=== PATIENT | male | born 1965 | race Caucasian/White ===

== ENCOUNTER 2016-04-09 09:46 | Emergency (ER) | payer OTHER ==
[~2016-04-09] VITALS: Ht 172.7 cm; Wt 71.8 kg
[2016-04-09 09:50] VITALS: Ht 172.7 cm; Wt 71.8 kg
[2016-04-09] MEDS ORDERED: KETOROLAC TROMETHAMINE 60 MG/2 ML VIAL IM STA (10:14)
--- NOTE | 2016-04-09 10:46 | DIAGNOSTIC IMAGING REPORT ---
LEFT FEMUR 2 VIEWS ROUTINE CLINICAL HISTORY: Left femur pain COMPARISON: None. DISCUSSION: No fractures are visualized. No destructive lesions are evident on conventional radiographic imaging. IMPRESSION: No bony abnormalities identified. Electronically signed by: Jakob Cash M.D. 04/09/2016 10:44 AM Dictated Date/Time: 04/09/2016 10:43 AM
[2016-04-09] MEDS ORDERED: HYDR-5688 PO (11:41)
[2016-04-09] MEDS ORDERED: DICL-201 PO (11:41)
[2016-04-09 12:05] VITALS: BP 132/92; PULSE 69; TEMP 36.5; O2SAT 99
--- NOTE | 2016-04-09 19:17 | EMERGENCY ROOM VISIT NOTE ---
ED Visit Note First contact with patient: 09:58 CHIEF COMPLAINT: Left thigh injury HISTORY OF PRESENT ILLNESS: This 50-year-old white male patient injured lateral left thigh nontender in the week. He has had 4 days of continued lateral left thigh pain. There was no specific injury that is aware of. He did put on a new roof last week and using an air nailer. He is unsure if this is related. He points to the midshaft femur as his area of discomfort. No pain anteriorly, posteriorly, or medially. No numbness or tingling. No prior history of similar episode. His accompanies him today. He has tried Tylenol, ibuprofen, and Darvocet without relief. REVIEW OF SYSTEM: HEENT: No dizziness, visual problems, hearing loss, or tinnitus. There is no difficulty swallowing and no oral lesions are present. PULMONARY: No cough, shortness of breath, sputum production or hemoptysis. CARDIOVASCULAR: No chest pain, palpitations, shortness of breath or peripheral edema. GASTROINTESTINAL: No diarrhea, constipation, nausea, vomiting, or abdominal pain. GENITOURINARY: No dysuria, frequency, urgency or nocturia. NEUROLOGIC: No weakness, muscle tenderness, epilepsy or history of neurological problems. MUSCULOSKELETAL: No history of joint tenderness/swelling. No history of arthritis or arthralgias. SKIN: No rashes or lesions. ENDOCRINE: No history of diabetes, thyroid disorders, or abnormal hair growth. PMH: The patient is healthy; there is no significant medical or surgical history. Family history: Noncontributory. Current medications: Reviewed and filed in patient's chart Allergies: NKDA SOCIAL HISTORY: Patient lives at home. Employed. No tobacco use. PHYSICAL EXAM: Vital Signs: Reviewed Nurse's notes. Afebrile. MENTAL STATUS: Alert, oriented, and cooperative. Skin:Warm and dry with good turgor. No rashes or lesions. No ecchymosis or erythema. The patient is not diaphoretic. No abrasions. Musculoskeletal: The left thigh has no obvious asymmetry or deformity. No visible edema. He has focal discomfort with palpation over the IT band laterally at the midshaft. No visible edema. Some motion of his hip and knee. There is no joint effusion. He has lateral pain with resisted hip flexion as well as abduction area no pain with adduction or hamstring contraction. No pain with palpation over the lateral knee, greater trochanter, or pelvis. There is no ligamentous instability. The patient walks with an antalgic gait. Neurologic: Gross sensation is intact across left leg by soft touch. EMERGENCY DEPARTMENT COURSE: X-ray does not show any fractures of the femur. This was read by radiology. DIAGNOSIS: Left lateral thigh pain DISCHARGE INSTRUCTIONS: Patient was educated regarding today's findings. Conservative care measures were discussed. His IT band may have been irritated by the repetitive nature of walking on the roof in a [id number] fashion while bent over. He would benefit from physical therapy. He will discuss this with his PCP. He may do soft tissue massage for comfort. Crutches are given and crutch instruction was reviewed. Weight-bear as tolerated. Discontinue crutch use when he can walk without a limp. Start diclofenac 75 mg every 12 hours if needed for pain. Add Tylenol every 6 hours for mild pain. Add [place] 5 mg every 6 hours for more severe pain. Driving precautions were given. Ice and elevation to the knee frequently for the next 72 hours. Gentle motion daily. Return to the ED for any acute changes. He was reassured that I do not suspect fracture, tendon rupture, mass, or tumor. Problem List Medical Problems: (1) no chronic medical problems Status: Chronic Current/Historical Medications Scheduled Diclofenac (Voltaren), 75 MG PO BID Scheduled PRN Hydrocodone/Acetaminophen 5MG/325MG (Fore[place] 5MG/325MG), 1-2 TABLET PO Q6H PRN for Pain Allergies Coded Allergies: No Known Allergies (Unverified , 04/09/16) Vital Signs Date Time Temp Pulse Resp B/P Pulse Ox O2 Delivery O2 Flow Rate FiO2 04/09/16 12:05 36.5 69 18 132/92 99 Room Air 04/09/16 09:50 36.2 92 17 156/88 99 Room Air Medications Administered Medications (Trade) Dose Ordered Sig/Fran Route Start Time Stop Time Status Last Admin Dose Admin Ketorolac Tromethamine (Toradol Inj) 60 mg NOW STAT IM 04/09/16 10:14 04/09/16 10:15 DC 04/09/16 10:26 60 MG Departure Information Impression Primary Impression: Pain in lateral left lower extremity Dispostion Home / Self-Care Condition GOOD Prescriptions Hydrocodone/Acetaminophen 5MG/325MG ([place] 5MG/325MG) Tab 1-2 TABLET PO Q6H Y for Pain, #16 TAB For Initial Treatment Prov: Angel Rojas,P.A. 04/09/16 Diclofenac (Voltaren) 75 Mg Tabcr 75 MG PO BID, #20 TAB WITH FOOD Prov: Angel Rojas,P.A. 04/09/16 Forms HOME CARE DOCUMENTATION FORM, SPECIAL NARCOTICS INSTRUCTIONS, TYLENOL USE, IMPORTANT VISIT INFORMATION Patient Instructions My [facility] Additional Instructions Ice intermittently to the lateral thigh as needed for discomfort Gentle stretching daily Use crutches until you can walk without a [id number] as tolerated Diclofenac 1 pill 2 times a day with food Add [place]hill 5 mg every 6 hours as needed for more severe pain-no driving Follow-up with your PCP for a physical therapy referral this week return to the ED for any acute changes or worsening of symptoms
== END 2016-04-09 11:50 | disposition home or self-care (01) ==
LOC: C.EDB 09:47
DX: M79.652 Pain in left thigh (principal)

== ENCOUNTER → 2016-06-30 | Outpatient (CLI) | payer OTHER ==
[~2016-06-30] MED LIST: DICL-201 PO; HYDR-5688 PO
== END | disposition home or self-care (01) ==
LOC: C.LAB 20:21
DX: Z02.83 Encounter for blood-alcohol and blood-drug test (principal)

== ENCOUNTER 2018-05-12 13:15 | Inpatient (IN) ==
[2018-05-12] MEDS ORDERED: ONDANSETRON INJ 2 MG/ML 2 ML VIAL IV STA (14:33)
[2018-05-12] MEDS ORDERED: AMPICILLIN/SULBACTAM SOD 3,000 MG in 0.9 % SODIUM CHLORIDE 100 ML IV STA (14:33)
[2018-05-12] MEDS ORDERED: MoRPHine SULFATE 4 MG/ML 1 ML CARP\\VIAL IV STA ×2 (14:33→16:48)
[2018-05-12] MEDS ORDERED: SODIUM CHLORIDE 0.9% 1000ML 1,000 ML IV SCH (14:45)
[2018-05-12 15:10] LABS: Basophils # (auto) 0.05 K/uL (0-0.2); Basophils % (auto) 0.3 %; Eosinophils # (auto) 0.16 K/uL (0-0.5); Eosinophils % (auto) 0.9 %; Hematocrit (blood only) 45.6 % (42-52); Hemoglobin 16.2 g/dL (14.0-18.0); Immature Granulocytes # (auto) 0.05 K/uL (0.00-0.02); Immature Granulocytes % (auto) 0.3 %; Lymphocytes # (auto) 2.89 K/uL (1.2-3.4); Lymphocytes % (auto) 16.6 %; Mean Corpuscular Hgb Conc 35.5 g/dL (32-36); Mean Platelet Volume 9.2 fL (7.4-10.4); Monocytes # (auto) 1.68 K/uL (0.11-0.59); Monocytes % (auto) 9.7 %; Neutrophils # (auto) 12.55 K/uL (1.4-6.5); Neutrophils % (auto) 72.2 %; Platelet Count 286 K/uL (130-400); RDW Coefficient of Variation 14.6 % (11.5-14.5); RDW Standard Deviation 47.1 fL (36.4-46.3); Red Blood Count 5.18 M/uL (4.7-6.1); White Blood Count 17.38 K/uL (4.8-10.8)
[2018-05-12 15:23] LABS: Albumin Level 3.9 gm/dl (3.4-5.0); BUN Creatinine Ratio 14.8 (10-20); C Reactive Protein 0.4 mg/dl (0-0.29); Creatinine Clr Calc Pharmacy 95.3 ml/min; Est GFR (African American) 116.7; Est GFR (Non-African American) 100.7; Potassium 3.7 mmol/L (3.5-5.1); Uric Acid 4.8 mg/dl (2.6-7.2)
[2018-05-12 15:26] LABS: Bilirubin,Total 0.7 mg/dl (0.2-1); Globulin 3.8 gm/dl (2.5-4.0); Total Protein 7.7 gm/dl (6.4-8.2)
--- NOTE | 2018-05-12 15:26 | XRay Report ---
XR wrist LT w scaphoid HISTORY: 52 years-old Male left wrist pain, trauma acute posttraumatic left wrist pain COMPARISON: None available TECHNIQUE: 5 views of the left wrist FINDINGS: Mild radiocarpal, triscaphe and first carpometacarpal osteoarthritis. Minimal subcortical cystic lopez ges about the carpus. No acute fracture or dislocation. Marginal spurring of the radial styloid. No o paque foreign body. Mild dorsal wrist soft tissue swelling. IMPRESSION: 1. Mild dorsal soft tissue swelling without acute fracture or dislocation. 2. Mild degenerative changes as above. The above report was generated using voice recognition software. It may contain grammatical, syntax o r spelling errors. Electronically signed by: Robbi Candelario M.D. 05/12/2018 3:25 PM
--- NOTE | 2018-05-12 17:43 | History & Physical Report ---
Date of Service May 12, 2018 Assessment & Plan (1) Lymphangitis: 52 year old male with pmhx of undiagnosed swelling and warmth of ankles 20 + years ago presented s/p mechanical injury to his left arm with lymphangitis, inflammatory markers, and elevated white count concern for skin/soft tissue infection vs compartment syndrome, vs gout vs tendonitis . -Admit to ortho floor -Empiric Unasyn 3 g q6h pending blood cx results -Ibuprofen 600 mg q6h -RICE -NV checks q4h -Trend CBC -Repeat BMP, ESR, CRP -Morphine 2mg q2 prn for pain -Consult Ortho appreciate recs -NPO after midnight History of Present Illness Primary Care Provider: NIKCY Anne 52 year old male with a pmhx of bilateral red warm ankles 20 + years ago, presents s/p jamming his left arm in a door, Left arm is swollen with a red streak from flexor aspect of the arm from the wrist to the elbow, concerning for skin and soft tissue infection. Pt was in his normal state of health until yesterday when he hurt his arm. Around 6 pm on 05/11 he was carrying a gallon of milk into the house when the door hit his elbow jamming his hand into the door frame. He does not recall significant pain from the injury. Later that evening around 9 pm he began to experience swelling and 10/10 pain in his wrist /arm. The pain was so severe he was unable to sleep last night. He describes the pain as a constant dull ache that ranges in intensity from 5/10 to 10/10, with no radiation. He describes ttp over the styloid process of the radius. Of note he did have a similar episode 20+ years ago where both ankles suddenly became warm, erythematous, and he was unable to bear weight. At that time a bx was preformed and was negative for gout. He was treated as if it was a gout flare and syx resolved. otherwise no significant pmhx, past surghx, or allergies. FH significant for dm on mom's side and heart disease on dads. He lives with his girlfriend of 12 years [place] with no animals. Has a couple of beers every night, smokes 1 ppd, no other recreational drug use. Today he presented to [facility] for evaluation. [facility] referred him to the [facility] ER. In the ED wrist xray was obtained demonstrating 1. Mild dorsal soft tissue swelling without acute fracture or dislocation. 2. Mild degenerative changes as above. CBC showed elevated wbc to 17.38 with elevated neutrophils and monocytes. ESR was 20, CRP 0.40, CMP was unremarkable. He was given a dose of unasyn and morphine for pain. Given his physical exam and laboratory findings the patient was admitted for further workup. Pt endorse hx of eczema Pt specifically denies any hx of fevers, chills, N/V/D, Abd pain, Ramesh, CP, Palpitations, SOB, Cough, Congestion, si/sx of acute infections process, exposure to thorny plants, or other constitutional syx except as mentioned above Allergies Allergy/AdvReac Type Severity Reaction Status Date / Time No Known Allergies Allergy Unverified 05/12/18 14:01 Home Medications Home Medications Medication Instructions Recorded Confirmed Type No Known Home Medications 05/12/18 05/12/18 History Past Med/Surg History Medical History No known health problems Family History Other No pertinent family history Social History Feels Safe at Home: Yes Smoking Status: Never smoker Review of Systems All systems reviewed & are unremarkable except as noted in HPI & below Physical Exam Vital Signs (Past 24 Hours): Last Vital Signs Temp 36.6 C 05/12/18 13:17 Pulse 85 05/12/18 15:59 Resp 17 05/12/18 15:59 BP 168/99 H 05/12/18 15:59 Pulse Ox 96 05/12/18 15:59 Constitutional: WD/WN, vitals as above + overweight Eyes: PERRL, conjunctivae normal, anicteric sclerae normal visual powell by confrontation Neck: trachea midline, no thyromegaly normal visual inspection Respiratory: normal respiratory effort, lungs clear to auscultation Cardiovascular: RRR, no murmur, no edema Gastrointestinal (Abdomen): normal bowel sounds, soft, nontender, no hepatosplenomegaly Musculoskeletal: Unable to move left arm 2/2 swelling and pain, appreciated radial pulse. Pt unable to flex or extend the wrist without significant pain. Pain with passive motion and palpation as well. Good capillary refill. Skin: Left wrist swelling. Reddness extending from wrist to elbow on flexor aspect of right arm without warmth, marked length on skin. Results & Data Laboratory Results 05/12/18 05/12/18 05/12/18 Range/Units 14:50 14:50 14:50 WBC (4.8-10.8) K/uL RBC (4.7-6.1) M/uL Hgb (14.0-18.0) g/dL Hct (42-52) % MCV (80-100) fL MCH (25-34) pg MCHC (32-36) g/dL RDW Std Deviation (36.4-46.3) fL RDW Coeff of Juliane (11.5-14.5) % Plt Count (130-400) K/uL MPV (7.4-10.4) fL Immature Gran % (Auto) % Neut % (Auto) % Lymph % (Auto) % Cameron % (Auto) % Eos % (Auto) % Baso % (Auto) % Immature Gran # (Auto) (0.00-0.02) K/uL Neut # (Auto) (1.4-6.5) K/uL Lymph # (Auto) (1.2-3.4) K/uL Cameron # (Auto) (0.11-0.59) K/uL Eos # (Auto) (0-0.5) K/uL Baso # (Auto) (0-0.2) K/uL ESR 20 H (0-14) mm/hr Sodium 138 (136-145) mmol/L Potassium 3.7 (3.5-5.1) mmol/L Chloride 106 (98-107) mmol/L Carbon Dioxide 27 (21-32) mmol/L Anion Gap 5.0 (3-11) BUN 12 (7-18) mg/dl Creatinine 0.84 (0.6-1.4) mg/dl Est Cr Clr Drug Dosing 95.3 ml/min Est GFR ( Amer) 116.7 Est GFR (Non-Af Amer) 100.7 BUN/Creatinine Ratio 14.8 (10-20) Glucose 93 (70-99) mg/dl Lactate 1.0 (0.4-2.0) mmol/L Uric Acid 4.8 (2.6-7.2) mg/dl Calcium 9.0 (8.5-10.1) mg/dl Total Bilirubin 0.7 (0.2-1) mg/dl AST 22 (15-37) U/L ALT 36 (12-78) U/L Alkaline Phosphatase 101 (45-117) U/L C-Reactive Protein 0.40 H (0-0.29) mg/dl Total Protein 7.7 (6.4-8.2) gm/dl Albumin 3.9 (3.4-5.0) gm/dl Globulin 3.8 (2.5-4.0) gm/dl Albumin/Globulin Ratio 1.0 (0.9-2) 05/12/18 Range/Units 14:50 WBC 17.38 H (4.8-10.8) K/uL RBC 5.18 (4.7-6.1) M/uL Hgb 16.2 (14.0-18.0) g/dL Hct 45.6 (42-52) % MCV 88.0 (80-100) fL MCH 31.3 (25-34) pg MCHC 35.5 (32-36) g/dL RDW Std Deviation 47.1 H (36.4-46.3) fL RDW Coeff of Juliane 14.6 H (11.5-14.5) % Plt Count 286 (130-400) K/uL MPV 9.2 (7.4-10.4) fL Immature Gran % (Auto) 0.3 % Neut % (Auto) 72.2 % Lymph % (Auto) 16.6 % Cameron % (Auto) 9.7 % Eos % (Auto) 0.9 % Baso % (Auto) 0.3 % Immature Gran # (Auto) 0.05 H (0.00-0.02) K/uL Neut # (Auto) 12.55 H (1.4-6.5) K/uL Lymph # (Auto) 2.89 (1.2-3.4) K/uL Cameron # (Auto) 1.68 H (0.11-0.59) K/uL Eos # (Auto) 0.16 (0-0.5) K/uL Baso # (Auto) 0.05 (0-0.2) K/uL ESR (0-14) mm/hr Sodium (136-145) mmol/L Potassium (3.5-5.1) mmol/L Chloride (98-107) mmol/L Carbon Dioxide (21-32) mmol/L Anion Gap (3-11) BUN (7-18) mg/dl Creatinine (0.6-1.4) mg/dl Est Cr Clr Drug Dosing ml/min Est GFR ( Amer) Est GFR (Non-Af Amer) BUN/Creatinine Ratio (10-20) Glucose (70-99) mg/dl Lactate (0.4-2.0) mmol/L Uric Acid (2.6-7.2) mg/dl Calcium (8.5-10.1) mg/dl Total Bilirubin (0.2-1) mg/dl AST (15-37) U/L ALT (12-78) U/L Alkaline Phosphatase (45-117) U/L C-Reactive Protein (0-0.29) mg/dl Total Protein (6.4-8.2) gm/dl Albumin (3.4-5.0) gm/dl Globulin (2.5-4.0) gm/dl Albumin/Globulin Ratio (0.9-2) Code Status & VTE Plan Code Status Full Code VTE Prophylaxis Plan VTE Prophylaxis will be ordered: Yes Supervising Physician Co-Signing Physician Notes ATTENDING NOTE I saw the patient concurrent with Dr. Brown and confirmed roe portions of the history and physical exam. I also discussed the case with the orthopedic life consultant by telephone. I agree with the documentation in the resident note above. Davon Romero is a 55-year-old male who presents to the emergency department with left wrist pain. He notes yesterday that he "jammed" his left arm between the door and screen a door while carrying a gallon of milk. He did not note significant pain at that time, actually equating the pain to the sensation of stubbing his toe. About 4 hours later he developed rather significant pain and swelling of the wrist, and this continued throughout the night. At some point today, he noted a red streaking on the flexor surface of the left arm from the wrist extending to the antecubital fossa. Given the increased pain, swelling, and tracking redness he presented to the emergency department. EXAM Semireclined in bed. No acute distress though he does seem to be in rather significant pain when asked to move the affected upper extremity. Blood pressure 144/91, pulse 76. He is afebrile. Cardiovascular regular rate and rhythm. Lungs clear throughout with nonlabored respirations. The left wrist is swollen and tender to touch. There is a red line extending on the flexor surface of the left forearm from the wrist to the antecubital fossa; there is no palpable cord. The patient can flex and extend the wrist approximately 10-15 degrees respectively; he is able to flex all 5 digits, with discomfort, about 15-20 degrees. Distal pulses are easily palpable; capillary refill is less than 2 seconds. The fingers have good color and appear perfused. DATA Leukocytosis of 17,000 CRP 0.40 ESR 20 Uric acid is normal Left wrist x-ray shows soft tissue swelling but no bony pathology IMPRESSION Left forearm lymphangitis/cellulitis Leukocytosis with subtle increase in CRP Trivial left forearm trauma, unsure if related to apparent infectious process Previous history of significant gout flare of though uric acid is normal at present No evidence of neurovascular compromise PLAN Admit to orthopedic floor Consult orthopedics -I have spoken to Dr. Amin this evening Ampicillin/sulbactam Neurovascular checks every 4 hours Repeat CBC, inflammatory markers in AM Resident Activity Tracking Resident Involvement: Resident Care Provided Care Provided: Adult Hospital Medicine
[2018-05-12] MEDS ORDERED: POLYETHYLENE (MIRALAX) 17 GM PACK PO PRN (19:46)
[2018-05-12] MEDS ORDERED: ONDANSETRON INJ 2 MG/ML 2 ML VIAL IV PRN (20:00)
[2018-05-12] MEDS: MoRPHine SULFATE 2 MG/ML CARP IV PRN (20:16)
[2018-05-12] MEDS: IBUPROFEN 600 MG TAB PO SCH (21:43)
[2018-05-12] MEDS: AMPICILLIN/SULBACTAM SOD 3,000 MG in 0.9 % SODIUM CHLORIDE 100 ML IV SCH (21:45)
--- NOTE | 2018-05-12 21:48 | Emergency Department Note ---
Entered by Ricci Blake acting as a scribe for History of Present Illness General Chief complaint: Wrist Pain Stated complaint: LEFT WRIST PAIN Time Seen by Provider: 05/12/18 14:22 Source: patient History of Present Illness Provider complaint: Wrist pain Onset (ago): day(s) (yesterday) Location: upper extremity (left wrist) Pain Consistency: + other (trauma) Maximum Pain Intensity: 10 Quality: + other (pain) Exacerbated By: + movement Associated symptoms: + denies other symptoms (breaking the skin around his wrist) and + other (pain when moving left wrist, swelling); no fever/chills (- fever) The patient is a 52 year old male who presents to the Emergency Room with complaints of left wrist pain that developed last night a few hours after hitting it on a storm door. The patient states that his wrist started to swell and hurt to move. He notes that he went to [place] today where he had an x- ray that revealed no fracture. The patient denies breaking the skin around his wrist after hitting his hand. He also denies having a fever recently. He states he has not medical history. Home Medications Home Medications Medication Instructions Recorded Confirmed Type No Known Home Medications 05/12/18 05/12/18 History Allergies Allergy/AdvReac Type Severity Reaction Status Date / Time No Known Allergies Allergy Unverified 05/12/18 14:01 Past Med/Surg History Medical History No known health problems Family History Other No pertinent family history Social History Preferred Language: Luxembourger Communication Ability: Effective Personnel Clerk Required: No Beliefs That Will Affect Care: None Current Living Situation: Significant Other Other Information That Helps Us Care for You: No Feels Safe at Home: Yes Safety Concerns: Feels Safe At This Time Smoking Status: Current every day smoker Hx Alcohol Use: Yes Hx Substance Use: No Review of Systems See HPI for pertinent positives & negatives. and A total of 10 systems reviewed and were otherwise negative Physical Exam Vital Signs Vital Signs - 24 hr 05/12/18 13:17 05/12/18 15:59 03/30/19 18:40 Temperature 36.6 C Temperature Source Oral Sepsis Recent Fever Within 48 Hours No Sepsis New/Unexplained Change in Mental Status No Sepsis Action Taken by Nursing No Action Required Pulse Rate 90 Pulse Rate [Finger] 85 76 Pulse Rhythm [Finger] Pulse Strength [Finger] Respiratory Rate 20 17 17 Blood Pressure 159/90 H Blood Pressure [Right Arm] 168/99 H 144/91 H Blood Pressure Mean 113 Blood Pressure Mean [Right Arm] 122 108 Blood Pressure Position [Right Arm] Pulse Oximetry 97 96 97 Oxygen Delivery Method Room Air Room Air Room Air 05/12/18 19:46 Temperature 36.4 C L Temperature Source Oral Sepsis Recent Fever Within 48 Hours Sepsis New/Unexplained Change in Mental Status Sepsis Action Taken by Nursing Pulse Rate Pulse Rate [Finger] 79 Pulse Rhythm [Finger] Regular Pulse Strength [Finger] Normal Respiratory Rate 22 Blood Pressure Blood Pressure [Right Arm] 165/93 H Blood Pressure Mean Blood Pressure Mean [Right Arm] 117 Blood Pressure Position [Right Arm] Sitting Pulse Oximetry 99 Oxygen Delivery Method Room Air General: Non-ill appearing middle-aged male in no acute distress except for pain with movement of left wrist.. HEENT: Normal cephalic atraumatic. Pupils are equal round and reactive to light. Extraocular movements are intact. Oropharynx is pink with moist mucous membranes. No swelling of the mouth lips or tongue. Neck: Supple with a midline trachea. No meningeal signs or stiffness, no JVD or bruits. No Stridor. Chest: Clear to auscultation bilaterally. No wheezes or rhonchi. No increased work of breathing. Heart: regular rate and rhythm. Abdomen: Soft nontender, nondistended without rebound guarding or rigidity. Extremities: No cyanosis clubbing. No calf tenderness or assymetry. Left wrist is not red or warm, however, there is a red streak the length of forearm. Normal motor sensation. Normal pulses. Tenderness to snuff box. Spine/Back. Non tender to palpation. No CVA tenderness Skin: Good turgor without rashes. Neurologic exam: Cranial nerves two through 12 are intact. Motor and sensation are intact and symmetrical throughout. Course 1426: Past medical records reviewed. The patient was evaluated in room C12A, and a complete history and physical examination were performed. 1552: I reevaluated the patient and discussed his results. 1554: I reviewed the patient's [facility] He will evaluate the patient for further management. Consultations Consultation #1: [facility] Time: 15:54 Administered Medications Ibuprofen (Motrin) 600 mg PO Q6H IMELDA Stop: 06/11/18 19:59 Last Admin: 05/12/18 21:43 Dose: 600 mg Documented by: [id number] Morphine Sulfate (Morphine Sulfate) 2 mg IV Q2H PRN PRN Reason: Pain Stop: 05/26/18 19:45 Last Admin: 05/12/18 20:16 Dose: 2 mg Documented by: [id number] Discontinued Medications Sodium Chloride (Nss 1000ml) 1,000 mls @ 999 mls/hr IV .Q1H1M IMELDA Stop: 05/12/18 15:45 Last Infusion: 05/12/18 16:02 Dose: 0 mls/hr Documented by: [id number] Admin: 05/12/18 14:54 Dose: 999 mls/hr Documented by: [id number] Ampicillin Sodium/Sulbactam Sodium 3,000 mg/ Sodium Chloride 108 mls @ 200 mls/hr IV NOW STA Stop: 05/12/18 15:05 Last Infusion: 05/12/18 16:02 Dose: 0 mls/hr Documented by: [id number] Admin: 05/12/18 15:28 Dose: 200 mls/hr Documented by: [id number] Morphine Sulfate (Morphine Sulfate) 4 mg IV NOW STA Stop: 05/12/18 14:34 Last Admin: 05/12/18 14:53 Dose: 4 mg Documented by: [id number] Morphine Sulfate (Morphine Sulfate) 4 mg IV NOW STA Stop: 05/12/18 16:49 Last Admin: 05/12/18 17:05 Dose: 4 mg Documented by: [id number] Ondansetron HCl (Zofran) 4 mg IV NOW STA Stop: 05/12/18 14:34 Last Admin: 05/12/18 14:53 Dose: 4 mg Documented by: [id number] Medical Decision Making Differential Diagnosis Differential: Fracture, infection, lymphangitis, electrolyte metabolic abnormality. Medical Records Attestation: I reviewed the patient's medical records. Home Medications Current Medication List: was personally reviewed by me Laboratory Data Attestation: I reviewed the patient's lab results. Result diagrams: 05/12/18 14:50 05/12/18 14:50 Lab Results 05/12/18 05/12/18 05/12/18 Range/Units 14:50 14:50 14:50 WBC 17.38 H (4.8-10.8) K/uL RBC 5.18 (4.7-6.1) M/uL Hgb 16.2 (14.0-18.0) g/dL Hct 45.6 (42-52) % MCV 88.0 (80-100) fL MCH 31.3 (25-34) pg MCHC 35.5 (32-36) g/dL RDW Std Deviation 47.1 H (36.4-46.3) fL RDW Coeff of Juliane 14.6 H (11.5-14.5) % Plt Count 286 (130-400) K/uL MPV 9.2 (7.4-10.4) fL Immature Gran % (Auto) 0.3 % Neut % (Auto) 72.2 % Lymph % (Auto) 16.6 % [place] % (Auto) 9.7 % Eos % (Auto) 0.9 % Baso % (Auto) 0.3 % Immature Gran # (Auto) 0.05 H (0.00-0.02) K/uL Neut # (Auto) 12.55 H (1.4-6.5) K/uL Lymph # (Auto) 2.89 (1.2-3.4) K/uL [place] # (Auto) 1.68 H (0.11-0.59) K/uL Eos # (Auto) 0.16 (0-0.5) K/uL Baso # (Auto) 0.05 (0-0.2) K/uL ESR 20 H (0-14) mm/hr Sodium 138 (136-145) mmol/L Potassium 3.7 (3.5-5.1) mmol/L Chloride 106 (98-107) mmol/L Carbon Dioxide 27 (21-32) mmol/L Anion Gap 5.0 (3-11) BUN 12 (7-18) mg/dl Creatinine 0.84 (0.6-1.4) mg/dl Est Cr Clr Drug Dosing 95.3 ml/min Est GFR ( Amer) 116.7 Est GFR (Non-Af Amer) 100.7 BUN/Creatinine Ratio 14.8 (10-20) Glucose 93 (70-99) mg/dl Lactate (0.4-2.0) mmol/L Uric Acid 4.8 (2.6-7.2) mg/dl Calcium 9.0 (8.5-10.1) mg/dl Total Bilirubin 0.7 (0.2-1) mg/dl AST 22 (15-37) U/L ALT 36 (12-78) U/L Alkaline Phosphatase 101 (45-117) U/L C-Reactive Protein 0.40 H (0-0.29) mg/dl Total Protein 7.7 (6.4-8.2) gm/dl Albumin 3.9 (3.4-5.0) gm/dl Globulin 3.8 (2.5-4.0) gm/dl Albumin/Globulin Ratio 1.0 (0.9-2) 05/12/18 Range/Units 14:50 WBC (4.8-10.8) K/uL RBC (4.7-6.1) M/uL Hgb (14.0-18.0) g/dL Hct (42-52) % MCV (80-100) fL MCH (25-34) pg MCHC (32-36) g/dL RDW Std Deviation (36.4-46.3) fL RDW Coeff of Juliane (11.5-14.5) % Plt Count (130-400) K/uL MPV (7.4-10.4) fL Immature Gran % (Auto) % Neut % (Auto) % Lymph % (Auto) % [place] % (Auto) % Eos % (Auto) % Baso % (Auto) % Immature Gran # (Auto) (0.00-0.02) K/uL Neut # (Auto) (1.4-6.5) K/uL Lymph # (Auto) (1.2-3.4) K/uL [place] # (Auto) (0.11-0.59) K/uL Eos # (Auto) (0-0.5) K/uL Baso # (Auto) (0-0.2) K/uL ESR (0-14) mm/hr Sodium (136-145) mmol/L Potassium (3.5-5.1) mmol/L Chloride (98-107) mmol/L Carbon Dioxide (21-32) mmol/L Anion Gap (3-11) BUN (7-18) mg/dl Creatinine (0.6-1.4) mg/dl Est Cr Clr Drug Dosing ml/min Est GFR ( Amer) Est GFR (Non-Af Amer) BUN/Creatinine Ratio (10-20) Glucose (70-99) mg/dl Lactate 1.0 (0.4-2.0) mmol/L Uric Acid (2.6-7.2) mg/dl Calcium (8.5-10.1) mg/dl Total Bilirubin (0.2-1) mg/dl AST (15-37) U/L ALT (12-78) U/L Alkaline Phosphatase (45-117) U/L C-Reactive Protein (0-0.29) mg/dl Total Protein (6.4-8.2) gm/dl Albumin (3.4-5.0) gm/dl Globulin (2.5-4.0) gm/dl Albumin/Globulin Ratio (0.9-2) Imaging Data Radiologist's Impression: Radiology results as stated below per my review and the radiologist's interpretation: XR wrist LT w scaphoid HISTORY: 52 years-old Male left wrist pain, trauma acute posttraumatic left wrist pain COMPARISON: None available TECHNIQUE: 5 views of the left wrist FINDINGS: Mild radiocarpal, triscaphe and first carpometacarpal osteoarthritis. Minimal subcortical cystic changes about the carpus. No acute fracture or dislocation. Marginal spurring of the radial styloid. No opaque foreign body. Mild dorsal wrist soft tissue swelling. IMPRESSION: 1. Mild dorsal soft tissue swelling without acute fracture or dislocation. 2. Mild degenerative changes as above. The above report was generated using voice recognition software. It may contain grammatical, syntax or spelling errors. Electronically signed by: Robbi Candelario M.D. 05/12/2018 3:25 PM Blood Pressure Blood Pressure Findings: Elevated blood pressure Blood Pressure Disposition: further management by hospitalist LEANDRA Narrative This patient comes in as described above he was sent over from [employer] [employer] after having painful left wrist and subsequently noted that he had a red streak going up his arm consistent with lymphangitis. He slammed his arm in the door yesterday there is no cut in the skin. The wrist itself is tender but not red or warm he said no fever. He has no definite neurologic deficits but does not want to move the wrist much. X-rays were obtained here and shows no bony abnormalities and no definite scaphoid fractures. IV access established blood cultures were obtained his lactic acid is not elevated. White count is elevated at 17,000 sed rate and CRP are mildly elevated as well he was given IV antibiotics with 3 g of Unasyn. Given his lymphangitis, I do think he needs to be admitted/observed. He may need orthopedic consultation at this point I do not the likely is a septic wrist because the wrist itself is not red or warm. I did consult the [facility] hospitalist to see him in the ER for these measures. Impression & Plan Lymphangitis, Sprain and strain of wrist Discharge Plan Visit Data *Final* Discharge Date/Time: 05/12/18 19:11 Chief Complaint: Wrist Pain Stated Complaint: LEFT WRIST PAIN ED Provider: Vlad Frazier Discharge Problem: Lymphangitis, Sprain and strain of wrist Patient Disposition: Admitted As Inpatient Discharge Instructions Interventions: ED Discharge Assessment Last Done: 05/12/18 19:11 The kumaribe's documentation has been prepared under my direction and personally reviewed by me in its entirety. I confirm that the note above accurately reflects all work, treatment, procedures, and medical decision making performed by me.
[2018-05-13] MEDS: MoRPHine SULFATE 2 MG/ML CARP IV PRN ×3 (00:24→13:29)
[2018-05-13] MEDS: IBUPROFEN 600 MG TAB PO SCH ×5 (02:32→21:35)
[2018-05-13] MEDS: AMPICILLIN/SULBACTAM SOD 3,000 MG in 0.9 % SODIUM CHLORIDE 100 ML IV SCH ×4 (02:33→21:38)
[2018-05-13 05:59] LABS: Basophils # (auto) 0.04 K/uL (0-0.2); Basophils % (auto) 0.4 %; Eosinophils # (auto) 0.47 K/uL (0-0.5); Eosinophils % (auto) 4.2 %; Hematocrit (blood only) 40.4 % (42-52); Hemoglobin 13.9 g/dL (14.0-18.0); Immature Granulocytes # (auto) 0.01 K/uL (0.00-0.02); Immature Granulocytes % (auto) 0.1 %; Lymphocytes # (auto) 3.93 K/uL (1.2-3.4); Lymphocytes % (auto) 35.3 %; Mean Corpuscular Hgb Conc 34.4 g/dL (32-36); Mean Corpuscular Volume 88.6 fL (80-100); Mean Platelet Volume 9.3 fL (7.4-10.4); Monocytes # (auto) 1.48 K/uL (0.11-0.59); Monocytes % (auto) 13.3 %; Neutrophils # (auto) 5.19 K/uL (1.4-6.5); Neutrophils % (auto) 46.7 %; Platelet Count 255 K/uL (130-400); RDW Coefficient of Variation 14.9 % (11.5-14.5); RDW Standard Deviation 48.4 fL (36.4-46.3); Red Blood Count 4.56 M/uL (4.7-6.1); White Blood Count 11.12 K/uL (4.8-10.8)
[2018-05-13 06:17] LABS: BUN Creatinine Ratio 16.2 (10-20); Calcium 8.2 mg/dl (8.5-10.1); Est GFR (African American) 120.9; Est GFR (Non-African American) 104.3; Potassium 3.8 mmol/L (3.5-5.1)
[2018-05-13] MEDS ORDERED: LACTATED RINGER'S 1,000 ML IV SCH (08:45)
[2018-05-13] MEDS: NICOTINE 14 MG/24 HR PATCH TD SCH (09:00)
--- NOTE | 2018-05-13 11:31 | Consultation Report ---
DATE OF ADMISSION: 05/12/2018 CHIEF COMPLAINT: Left upper extremity pain. HISTORY OF PRESENT ILLNESS: The patient is pleasant. He is 52. He is improved this morning. He had undiagnosed small little trauma few nights ago, suffered an acute pain, swelling to his left upper extremity. It progressed. Some redness, erythema, pain. Significant pain, actually warranted admission to the hospital yesterday. Diagnoses of either infected joint, mild compartment syndrome, cellulitis or some sort of inflammatory process. I was consulted yesterday afternoon about 5:00 or 6:00. The patient was admitted. I saw him this morning at approximately 9:00. He is majorly improved. He does have a remote history of some swelling to the lower extremities several years ago, but more likely unrelated. ALLERGIES: Negative. MEDICATIONS: None. MEDICAL HISTORY: No health problems. PAST SURGICAL HISTORY: None. SOCIAL HISTORY: Nonsmoker. REVIEW OF SYSTEMS: Denies any fevers, sweats, chills, malaise. Denies any chest pain, palpitations. No nausea, vomiting. OBJECTIVE: VITAL SIGNS: Temperature 36.6, pulse 85, blood pressure slightly elevated. EYES: Pupils react to light and accommodation. EAR, NOSE AND THROAT: Clear. HEART/LUNG: Not auscultated. EXTREMITIES: His left upper extremity is impressive. He has pain and erythema referable to the forearm. Slight streaking present. Decreased range of motion of left wrist. No breakage of skin. No ulcerations. No signs of any type of IV drug abuse. IMPRESSION: Includes that of cellulitis versus vasculitis or mild infection of the left upper extremity. It does not appear to be a compartment syndrome, nor gout. PLAN: At this point in time, this is a nonsurgical issue. We will continue with IV antibiotics. Hopefully, this will clear. It is going to be very tedious, sometimes I have seen these situations could go sour and the patient can really have a significant relapse. I will follow him closely. I anticipate him staying in the next 24-48 hours.
--- NOTE | 2018-05-13 14:51 | Family Medicine Progress Note ---
Date of Service May 13, 2018 Assessment & Plan (1) Lymphangitis: 52 year old male with pmhx of undiagnosed swelling and warmth of ankles 20 + years ago presented s/p mechanical injury to his left arm with lymphangitis, inflammatory markers, and elevated white count concern for skin/soft tissue infection vs compartment syndrome, vs gout vs tendonitis . 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 I discussed the case with Dr. Brown and I agree with the documentation in his note. Patient states that he has less discomfort of the left arm. He has been afebrile overnight. He was evaluated by orthopedics. EXAM Semireclined in bed. He has a left arm elevated no acute distress. Blood pressure 135/87, pulse 80, respiratory 18 Cardiovascular regular rate and rhythm. He has some scattered wheezing on exhalation The left wrist is swollen and tender to touch. There is a red line extending on the flexor surface of the left forearm from the wrist to the antecubital fossa; it is similar distribution to yesterday although slightly less intense erythema. The patient can flex and extend the wrist approximately 10-15 degrees respectively; his finger flexion has improved compared to last night. Distal pulses are easily palpable; capillary refill is less than 2 seconds. DATA White cell count improved to 11.1 CRP 1.0 IMPRESSION Left forearm lymphangitis/cellulitis, improvement since admission Leukocytosis with increased CRP Trivial left forearm trauma, unsure if related to apparent infectious process Previous history of significant gout flare of though uric acid is normal at present No evidence of neurovascular compromise PLAN Appreciate orthopedic consultation Ampicillin/sulbactam Neurovascular checks every 4 hours Repeat CBC, inflammatory markers in AM Subjective Pt doing well this am sitting in bed watching Tv with his significant other at his side. Reports no acute events overnight, and pain was well controlled. He reports significant improvement in pain and has regained say movement in his finger and hand, wrist is still very tender. He is tolerating his diet, voiding, stooling, and sleeping well. Pt is eager for d/c otherwise no further questions or concerns at this time. Physical Exam Vital Signs (Past 24 Hours): Last Vital Signs Temp 36.7 C 05/13/18 07:14 Pulse 65 05/13/18 07:14 Resp 16 05/13/18 07:14 BP 116/79 05/13/18 07:14 Pulse Ox 97 05/13/18 07:14 Constitutional: WD/WN, vitals as above + overweight Eyes: PERRL, conjunctivae normal, anicteric sclerae normal visual powell by confrontation Neck: trachea midline, no thyromegaly normal visual inspection Respiratory: normal respiratory effort, lungs clear to auscultation Cardiovascular: RRR, no murmur, no edema Gastrointestinal (Abdomen): normal bowel sounds, soft, nontender, no hepatosplenomegaly Musculoskeletal: Still unable to move his left wrist, he is ttp as well. Regained 50% of motion in fingers and hand. Hand swelling has resolved but still swollen in his wrist Skin: Lymphangitis has become less pronounced in color but more diffuse. His extened a little further up the arm and is no longer a narrow streak. Still no warmth or pronounced swelling in the erythmatous region. Resident Activity Tracking Resident Involvement: Resident Care Provided Care Provided: Adult Hospital Medicine
[2018-05-13] MEDS: ALBUTEROL HFA 8 GM INHALER INH SCH (21:36)
[2018-05-14] MEDS: AMPICILLIN/SULBACTAM SOD 3,000 MG in 0.9 % SODIUM CHLORIDE 100 ML IV SCH ×3 (02:43→14:57)
[2018-05-14] MEDS: IBUPROFEN 600 MG TAB PO SCH ×3 (02:44→13:35)
[2018-05-14] MEDS: MoRPHine SULFATE 2 MG/ML CARP IV PRN (03:24)
[2018-05-14 05:57] LABS: Basophils # (auto) 0.04 K/uL (0-0.2); Basophils % (auto) 0.4 %; Eosinophils # (auto) 0.36 K/uL (0-0.5); Eosinophils % (auto) 3.2 %; Hematocrit (blood only) 40.2 % (42-52); Hemoglobin 13.7 g/dL (14.0-18.0); Immature Granulocytes # (auto) 0.02 K/uL (0.00-0.02); Immature Granulocytes % (auto) 0.2 %; Lymphocytes # (auto) 2.96 K/uL (1.2-3.4); Lymphocytes % (auto) 26.1 %; Mean Corpuscular Hgb Conc 34.1 g/dL (32-36); Mean Corpuscular Volume 88.5 fL (80-100); Mean Platelet Volume 9.3 fL (7.4-10.4); Monocytes # (auto) 1.18 K/uL (0.11-0.59); Monocytes % (auto) 10.4 %; Neutrophils # (auto) 6.76 K/uL (1.4-6.5); Neutrophils % (auto) 59.7 %; Platelet Count 264 K/uL (130-400); RDW Coefficient of Variation 14.7 % (11.5-14.5); RDW Standard Deviation 47.5 fL (36.4-46.3); Red Blood Count 4.54 M/uL (4.7-6.1); White Blood Count 11.32 K/uL (4.8-10.8)
[2018-05-14 06:15] LABS: Calcium 8.2 mg/dl (8.5-10.1); Creatinine Clr Calc Pharmacy 114.4 ml/min; Est GFR (African American) 125.8; Est GFR (Non-African American) 108.5
[2018-05-14 06:16] LABS: C Reactive Protein 1.02 mg/dl (0-0.29)
[2018-05-14] MEDS: NICOTINE 14 MG/24 HR PATCH TD SCH (08:01)
[2018-05-14] MEDS: ALBUTEROL HFA 8 GM INHALER INH SCH ×2 (08:02→13:35)
[2018-05-14] MEDS ORDERED: ACETAMINOPHEN 325 MG TAB PO PRN (10:08)
--- NOTE | 2018-05-14 14:38 | Discharge Summary ---
Date of Service May 14, 2018 Admission HPI Per Admitting Provider 52 year old male with a pmhx of bilateral red warm ankles 20 + years ago, presents s/p jamming his left arm in a door, Left arm is swollen with a red streak from flexor aspect of the arm from the wrist to the elbow, concerning for skin and soft tissue infection. Pt was in his normal state of health until yesterday when he hurt his arm. Around 6 pm on 05/11 he was carrying a gallon of milk into the house when the door hit his elbow jamming his hand into the door frame. He does not recall significant pain from the injury. Later that evening around 9 pm he began to experience swelling and 10/10 pain in his wrist /arm. The pain was so severe he was unable to sleep last night. He describes the pain as a constant dull ache that ranges in intensity from 5/10 to 10/10, with no radiation. He describes ttp over the styloid process of the radius. Of note he did have a similar episode 20+ years ago where both ankles suddenly became warm, erythematous, and he was unable to bear weight. At that time a bx was preformed and was negative for gout. He was treated as if it was a gout flare and syx resolved. otherwise no significant pmhx, past surghx, or allergies. FH significant for dm on mom's side and heart disease on dads. He lives with his girlfriend of 12 years [place] with no animals. Has a couple of beers every night, smokes 1 ppd, no other recreational drug use. Today he presented to [facility] for evaluation. [facility] referred him to the [facility] ER. In the ED wrist xray was obtained demonstrating 1. Mild dorsal soft tissue swelling without acute fracture or dislocation. 2. Mild degenerative changes as above. CBC showed elevated wbc to 17.38 with elevated neutrophils and monocytes. ESR was 20, CRP 0.40, CMP was unremarkable. He was given a dose of unasyn and morphine for pain. Given his physical exam and laboratory findings the patient was admitted for further workup. Pt endorse hx of eczema Pt specifically denies any hx of fevers, chills, N/V/D, Abd pain, Ramesh, CP, Palpitations, SOB, Cough, Congestion, si/sx of acute infections process, exposure to thorny plants, or other constitutional syx except as mentioned above Admission Exam Per Admitting Provider Constitutional: WD/WN, vitals as above + overweight Eyes: PERRL, conjunctivae normal, anicteric sclerae normal visual powell by confrontation Neck: trachea midline, no thyromegaly normal visual inspection Respiratory: normal respiratory effort, lungs clear to auscultation Cardiovascular: RRR, no murmur, no edema Gastrointestinal (Abdomen): normal bowel sounds, soft, nontender, no hepatosplenomegaly Musculoskeletal: Unable to move left arm 2/2 swelling and pain, appreciated radial pulse. Pt unable to flex or extend the wrist without significant pain. Pain with passive motion and palpation as well. Good capillary refill. Skin: Left wrist swelling. Reddness extending from wrist to elbow on flexor aspect of right arm without warmth, marked length on skin. Principal Diagnosis Cellulitis/Lymphangitis Discharge Exam Constitutional WD/WN, vitals as above Respiratory normal respiratory effort, lungs clear to auscultation Cardiovascular RRR, no murmur, no edema Gastrointestinal (Abdomen) normal bowel sounds, soft, nontender, no hepatosplenomegaly Skin soft tissue swelling noted over left wrist joint, which is TTP. No erythema or warmth noted. 5/5 design eng strength. Decreased ROM with wrist flexion and extension. Cap refill <2 sec. Sensation intact over digits. Discharge Data Allergies Allergy/AdvReac Type Severity Reaction Status Date / Time No Known Allergies Allergy Unverified 05/12/18 14:01 Consultations 05/12/18 16:02 ED Decision to Admit Stat 05/12/18 19:46 Consult Orthopedic Surgery Stat Hospital Course (1) Lymphangitis: Mr. Romero is a 52 year old male with who was admitted to [facility] due to a mechanical injury to his left arm with lymphangitis, raised inflammatory markers, and elevated white count w/concern for skin/soft tissue infection. Lymphangitis -WCC 17 on admission, w/an ESR of 20 and CRP of 1 (would expect this to be elevated more) -erythema resolved, pt with decreased swelling and pain on d/c -initially treated with Unasyn 3 g q6h -> transitioned to keflex 500mg TID x5 days on discharge -blood cultures x2 negative -ortho consulted -> recommended abx and observation, no indication for surgery -recommend pain management w/Ibuprofen 600 mg q6h and tylenol 1g q8h -f/u with PCP on d/c Asthma -on admission, found to have wheezing throughout all lung powell, reports he experiences this persistently -Hx of lung injury requiring ICU stay - 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 -recommend f/u with PCP for further workup -prescribed albuterol inhaler to use as needed for SOB/wheezing Smoking Cessation -Counseled pt on smoking cessation Total Time Total Time Spent Total Time Spent (In Minutes): <30 Discharge Plan Discharge Items Patient Disposition: Home - Self-Care Reason For Visit: LEFT WRIST PAIN Discharge Diagnosis: Skin Infection Discharge Goals: Decrease discomfort and Improve function Activity: Resume your previous activity Non-emergency contact: Primary Care Provider Call non-emergency contact if: you have any medication questions, your symptoms worsen, your pain is worsening and your temperature is above 101 Follow-up/Referrals: Mana Myers CRNP [Primary Care Provider] - 05/21/18 2:40 pm (Please, follow up at [facility] with Mana SAUNDERS on MondayMay 21 at 3:00 pm (arrive 2:40 pm). *If you need to change this appointment, call the office at [phone].) Diet: Regular Addtl Provider Instructions: Mr. Romero, you were admitted to [facility] due to a skin infection in your left arm. You were seen by our orthopedic surgeon, who did not feel surgical intervention was necessary. You were treated with IV antibiotics, and the redness in your arm improved. We will be discharging you home with an antibiotic to take three times a day for the next 5 day, to finish your full course of antibiotics. Please finish the entire course. We recommend that you follow up with your primary care provider, and have made an appointment for you (see above) to see them. If you have a fever (temperature of 38 degrees Celsius or higher), chills, worsening pain, swelling, redness or lines in your arm, please call your doctor. Otherwise, the swelling and pain in your arm should improve day by day. We recommend continuing to use that arm, so that it does not become stiff. You can take tylenol and ibuprofen as needed for pain. - Recommended dosing for Tylenol include 1,000 mg (two tablets) every 8 hours, or 500mg (one tablet) every 4-6 hours. Do not exceed 3000mg a day of Tylenol. - You can also use ibuprofen, as this will help with inflammation. You can use 600mg every 6 hours, but do not exceed 2400mg a day. Ibuprofen can also irritate your stomach, and we recommend taking it with food. You were also found to be wheezing on examination, and we have prescribed you an inhaler to use as needed for shortness of breath or wheezing. We recommend discussing this with your doctor as well. Prescriptions: New albuterol sulfate [Ventolin HFA] 90 mcg/actuation Hfa Aerosol Inhaler 2 puff Inhalation BID PRN (Reason: SOB or Wheeze) 30 Days Qty: 1 RF: 0 cephalexin [Keflex] 500 mg capsule 500 mg PO Q8H 5 Days Qty: 15 RF: 0 No Action No Known Home Medications RF: 0 Stand-Alone Forms: My [facility] [employer]/Other Patient Handouts: Cephalexin Monohydrate Oral suspension Discharge Orders: Discharge Order (Routine); Ordered 05/14/18 Ordered By: Peña Tenorio Admission Data Admit Date/Time: 05/12/18 18:48 Attending Provider: Sergo Fox Admit Provider: Reg Brown I. Primary Care Provider: Mana Myers Other Providers: Redd Romero ; Mariano Amin ; Jame Taylor Service: Medical Other Interventions: Discharge Summary Assessment (RN) Last Done: 05/14/18 15:34 DC Date/Time DO NOT enter until pt leaves facility: 05/14/18 16:13 Supervising Physician Co-Signing Physician Notes I personally examined the patient and verified all roe points of history and exam, discussed case, and agree with decision making with Dr Tenorio. Feeling much better, hand and wrist are still swollen, but he notes it is dramatically better than whenever he first came in. Pain is less and there is no redness streaking up his arm anymore. He feels up to going home. Lymphangitisimproving. Home on oral antibiotics. Continue close outpatient follow-up, seems most likely the infection is all superficial, and orthopedics did not feel there was a wrist infection, discussed with the patient to be safe we definitely want him to follow-up with his PCP until he is back to "good as new". Stable for home Resident Activity Tracking Resident Involvement: Resident Care Provided Care Provided: Adult Hospital Medicine
== END 2018-05-14 16:13 | disposition home or self-care (01) | DRG 603 ==
LOC: ED 13:15 → 3E 18:48 → SUATTDRO 18:48 → 3E 19:11

== ENCOUNTER 2020-12-21 05:38 | Inpatient (IN) ==
[2020-12-21] MEDS ORDERED: ONDANSETRON INJ 2 MG/ML 2 ML VIAL IV STA (05:59)
[2020-12-21] MEDS ORDERED: SODIUM CHLORIDE 0.9% 1000ML 1,000 ML IV ONE (05:59)
[2020-12-21] MEDS ORDERED: HYDROmorphone INJ 1 MG/ML SYRINGE IV STA ×2 (05:59→23:14)
--- NOTE | 2020-12-21 06:04 | Emergency Department Note ---
Impression & Plan Sigmoid diverticulitis, Perforation of sigmoid colon due to diverticulitis Admit to the [facility] Hospitalist group with consult to general surgery Dr. Rooney ED Provider Note NAME: RIKC BONILLA AGE: 55 SEX: M ARRIVES VIA: Walk-In INFORMANT: Patient and his ED PROVIDER(S): Thelma Govea DO CHIEF COMPLAINT: Abdominal pain PLAN: Disposition: Condition: Good Outpatient prescription management: None Referral: MEDICAL DECISION MAKING: This is a 55-year-old male patient presents to the emergency department with lower abdominal pain. Patient has an elevated white count greater than 18,000. He received IV analgesia, IV antiemetics, and IV fluids. The patient received IV piperacillin/tazobactam He went for CT scan of the abdomen/pelvis which revealed evidence of sigmoid diverticulitis with perforation. I discussed the case with surgery-Dr. Rooney. He recommended admission to internal medicine Triage Nursing notes reviewed and agree with them. Additional history obtained from patient's is at the bedside Vital Signs: reviewed and remarkable for tachycardia Differential diagnosis: Cystitis, appendicitis, diverticulitis ER treatment provided: IV Dilaudid x2 IV Zofran IV normal saline IV piperacillin/tazobactam Diagnostics interpreted by me: Cardiac Monitoring: Sinus tachycardia at 108 Laboratory studies: See below Imaging studies: CT abdomen pelvis: See radiology report Consultation: Dr. Rooney from general surgery HPI: 55/M arrives for evaluation of abdominal pain. Patient developed suprapubic and right lower quadrant abdominal pain yesterday afternoon. He became significantly nauseated. He has not had anything to eat or drink since noon time yesterday. The pain is kept him up throughout the night and he presents here for evaluation at this time. ROS: See above HPI for pertinent positives & negatives. A total of 10 systems reviewed and were otherwise negative. PAST MEDICAL HISTORY:None PAST SURGICAL HISTORY:See Below FAMILY HISTORY:See Below SOCIAL HISTORY:Patient lives with his ; he smokes. HOME MEDICATIONS:None ALLERGIES:None VITALS:See Below PHYSICAL EXAMINATION: HEENT: Head - normocephalic and atraumatic. Pupils are equal, round, and react bruce to light. Extraocular eye muscles are intact, and sclera are anicteric. Nose - moist nasal mucosa without discharge. Mouth - moist buccal mucosa. Oropharynx is nonerythematous and there is no tonsillar exudate or edema noted. Neck: Supple; no JVD, nuchal rigidity, cervical lymphadenopathy, or auscultated bruits. Heart: Tachycardic rate and regular rhythm. There is a normal S1 and S2 with no murmurs, clicks, or gallops appreciated. Lungs: Clear to auscultation bilaterally with no wheezes, rales, or rhonchi. Abdomen: Soft, moderately tender in the right lower quadrant and suprapubic re gion. Nondistended, with good bowel sounds. There are no palpable pulsatile masses or hepatosplenomegaly. There is no guarding, rigidity, or rebound noted. Extremities: No evidence of cyanosis, clubbing, or edema. There are easily palpable peripheral pulses. Skin: warm and dry with good turgor and no rashes. ED COURSE: Times/Reassessments: 0550: Patient was evaluated in room B5. A complete history and physical was performed. An IV lock was initiated and labs are drawn as above. The patient was bolused with a liter of normal saline solution. He was given 1 mg of IV Dilaudid and 4 mg of IV Zofran. He remained quite uncomfortable was given an additional 0.5 mg IV dose of Dilaudid. He went for CT scan of the abdomen/pelvis. I reviewed the results of the CT scan with the patient and he was ordered to have IV antibiotics. I will discuss the case with general surgery. Thelma Govea DO Past Med/Surg History Medical History (Updated 12/21/20 @ 08:22 by Thelma Govea DO) No known health problems Family History Other No pertinent family history Social History Smoking Status: Current every day smoker Tobacco Type: Cigarettes Hx Alcohol Use: Yes Alcohol type: beer Hx Substance Use: No Preferred Language: Congolese Communication Ability: Effective Director Mortgage Required: No Beliefs That Will Affect Care: None Current Living Situation: Significant Other Feels Safe at Home: Yes Assistive Devices: Glasses Allergies Allergies Allergy/AdvReac Type Severity Reaction Status Date / Time No Known Allergies Allergy Unverified 12/21/20 07:58 Home Meds Home Medications Medication Instructions Recorded Confirmed No Known Home Medications 05/12/18 12/21/20 Results & Data (ED) Vital Signs Vital Signs - 24 hr 12/21/20 05:45 12/21/20 06:10 12/21/20 06:30 Temperature 36.6 C Temperature Source Temporal Artery Scan Pulse Rate 108 H 88 83 Pulse Rate from SpO2 Sensor 83 Respiratory Rate 16 27 H 14 Blood Pressure 131/87 102/65 126/78 Blood Pressure Mean 101 77 94 Blood Pressure Position Sitting Pulse Oximetry 96 97 92 Oxygen Delivery Method Room Air Room Air Room Air Sepsis Recent Fever Within 48 Hours No Sepsis New/Unexplained Change in Mental Status No Sepsis Action Taken by Nursing No Action Required 12/21/20 07:00 12/21/20 07:30 Temperature Temperature Source Pulse Rate 88 82 Pulse Rate from SpO2 Sensor 87 Respiratory Rate 17 16 Blood Pressure 109/71 Blood Pressure Mean 83 Blood Pressure Position Pulse Oximetry 95 Oxygen Delivery Method Sepsis Recent Fever Within 48 Hours Sepsis New/Unexplained Change in Mental Status Sepsis Action Taken by Nursing Laboratory Data Result diagrams: 12/21/20 06:00 12/21/20 06:00 Lab Results 12/21/20 12/21/20 12/21/20 Range/Units 06:00 06:00 06:10 WBC 18.39 H (4.8-10.8) K/uL RBC 5.26 (4.7-6.1) M/uL Hgb 16.3 (14.0-18.0) g/dL Hct 46.4 (42-52) % MCV 88.2 (80-100) fL MCH 31.0 (25-34) pg MCHC 35.1 (32-36) g/dL RDW Std Deviation 45.8 (36.4-46.3) fL RDW Coeff of Juliane 14.2 (11.5-14.5) % Plt Count 308 (130-400) K/uL MPV 9.5 (7.4-10.4) fL Immature Gran % (Auto) 0.2 % Neut % (Auto) 68.6 % Lymph % (Auto) 16.9 % Dewey % (Auto) 13.3 % Eos % (Auto) 0.8 % Baso % (Auto) 0.2 % Neut # (Auto) 12.61 H (1.4-6.5) K/uL Lymph # (Auto) 3.10 (1.2-3.4) K/uL Dewey # (Auto) 2.45 H (0.11-0.59) K/uL Eos # (Auto) 0.15 (0-0.5) K/uL Baso # (Auto) 0.04 (0-0.2) K/uL Immature Gran # (Auto) 0.04 H (0.00-0.02) K/uL Sodium 135 L (136-145) mmol/L Potassium 4.0 (3.5-5.1) mmol/L Chloride 106 (98-107) mmol/L Carbon Dioxide 22 (21-32) mmol/L Anion Gap 7.0 (3-11) BUN 8 (7-18) mg/dl Creatinine 0.87 (0.6-1.4) mg/dl Est Cr Clr Drug Dosing 92.8 ml/min Est GFR ( Amer) 112.6 ml/min Est GFR (Non-Af Amer) 97.2 ml/min BUN/Creatinine Ratio 9.5 L (10-20) Glucose 102 H (70-99) mg/dl Calcium 9.3 (8.5-10.1) mg/dl Total Bilirubin 1.4 H (0.2-1) mg/dl AST 13 L (15-37) U/L ALT 27 (12-78) U/L Alkaline Phosphatase 105 (45-117) U/L Total Protein 7.6 (6.4-8.2) gm/dl Albumin 3.5 (3.4-5.0) gm/dl Globulin 4.1 H (2.5-4.0) gm/dl Albumin/Globulin Ratio 0.9 (0.9-2) Lipase 72 L (73-393) U/L COVID-19 Eval Order Covid19 at [facility] SARS-CoV-2 (PCR) (Negative) 12/21/20 Range/Units 06:10 WBC (4.8-10.8) K/uL RBC (4.7-6.1) M/uL Hgb (14.0-18.0) g/dL Hct (42-52) % MCV (80-100) fL MCH (25-34) pg MCHC (32-36) g/dL RDW Std Deviation (36.4-46.3) fL RDW Coeff of Juliane (11.5-14.5) % Plt Count (130-400) K/uL MPV (7.4-10.4) fL Immature Gran % (Auto) % Neut % (Auto) % Lymph % (Auto) % Dewey % (Auto) % Eos % (Auto) % Baso % (Auto) % Neut # (Auto) (1.4-6.5) K/uL Lymph # (Auto) (1.2-3.4) K/uL Dewey # (Auto) (0.11-0.59) K/uL Eos # (Auto) (0-0.5) K/uL Baso # (Auto) (0-0.2) K/uL Immature Gran # (Auto) (0.00-0.02) K/uL Sodium (136-145) mmol/L Potassium (3.5-5.1) mmol/L Chloride (98-107) mmol/L Carbon Dioxide (21-32) mmol/L Anion Gap (3-11) BUN (7-18) mg/dl Creatinine (0.6-1.4) mg/dl Est Cr Clr Drug Dosing ml/min Est GFR ( Amer) ml/min Est GFR (Non-Af Amer) ml/min BUN/Creatinine Ratio (10-20) Glucose (70-99) mg/dl Calcium (8.5-10.1) mg/dl Total Bilirubin (0.2-1) mg/dl AST (15-37) U/L ALT (12-78) U/L Alkaline Phosphatase (45-117) U/L Total Protein (6.4-8.2) gm/dl Albumin (3.4-5.0) gm/dl Globulin (2.5-4.0) gm/dl Albumin/Globulin Ratio (0.9-2) Lipase (73-393) U/L COVID-19 Eval Order SARS-CoV-2 (PCR) NEGATIVE (Negative) Administered Medications Discontinued Medications Hydromorphone HCl (Hydromorphone Inj 1 Mg/Ml Syringe) 1 mg IV NOW STA Stop: 12/21/20 06:00 Last Admin: 12/21/20 06:11 Dose: 1 mg Documented by: [id number] Hydromorphone HCl (Hydromorphone Inj 0.5 Mg/0.5 Ml Syr) Confirm Administered Dose 0.5 mg .ROUTE .STK-MED ONE Stop: 12/21/20 06:49 Last Admin: 12/21/20 06:57 Dose: 0.5 mg Documented by: [id number] Hydromorphone HCl (Hydromorphone Inj 0.5 Mg/0.5 Ml Syr) 0.5 mg IV NOW STA Stop: 12/21/20 07:00 Last Admin: 12/21/20 07:00 Dose: Not Given Documented by: [id number] Sodium Chloride (Nss 1000ml) 1,000 mls @ 999 mls/hr IV .Q1H1M ONE Stop: 12/21/20 06:59 Last Admin: 12/21/20 06:11 Dose: 999 mls/hr Documented by: [id number] Ioversol (Optiray 320 100ml) 94 ml IV ONCE ONE Stop: 12/21/20 07:22 Last Admin: 12/21/20 07:22 Dose: 94 ml Documented by: [id number] Ondansetron HCl (Ondansetron Inj 2 Mg/Ml 2 Ml Vial) 4 mg IV NOW STA Stop: 12/21/20 06:00 Last Admin: 12/21/20 06:11 Dose: 4 mg Documented by: [id number] Imaging Data Radiologist's Impression: Abdomen/Pelvis CT 12/21/20 06:00 CT SCAN OF THE ABDOMEN AND PELVIS WITH IV CONTRAST CLINICAL HISTORY: Right lower quadrant abdominal pain. COMPARISON STUDY: No priors. TECHNIQUE: Following the IV administration of 94 cc of Optiray 320, CT scan of the abdomen and pelvis is performed from the lung bases to the proximal femora. Images are reviewed in the axial, sagittal, and coronal planes. IV contrast was administered without complication. A dose lowering technique was utilized adh ering to the principles of ALARA. CT DOSE: 400.12 mGy.cm FINDINGS: Lung bases: The heart is normal in size and without pericardial effusion. The lung bases are clear noting bibasilar scarring/atelectasis. There is a tiny hiatal hernia. Liver: The contrast-enhanced liver is normal in size, contour, and attenuation. There is no intrahepatic biliary ductal dilatation. The hepatic veins and portal veins are patent. Gallbladder: Unremarkable. Spleen: Normal in size and attenuation. Pancreas: There is an indeterminant 1.9 cm low-attenuation lesion arising from the body of the pancreas seen on image #110. The pancreatic duct is normal in caliber. Adrenal glands: Unremarkable. Kidneys: The contrast enhanced kidneys are normal in size and without hydronephrosis. The kidneys enhance symmetrically. Abdominal vasculature: There is advanced atherosclerotic calcification of the abdominal aorta. An infrarenal abdominal aortic aneurysm measures up to 3.5 cm. 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 Bowel: There is mild colonic diverticulosis. There is wall thickening and edema with pericolonic infiltration and fluid involving the sigmoid colon consistent with acute diverticulitis. No bowel obstruction is seen. No organized fluid collection is seen to suggest abscess. The appendix is well-visualized and normal. Peritoneum: There are small foci of intraperitoneal free air identified in the central pelvis (axial images #282 and #289). Trace free fluid is seen in the pelvis. Lymphadenopathy: None. Pelvic viscera: The prostate gland is enlarged and heterogeneous. The bladder is distended, the wall appears thickened and trabeculated indicating chronic outlet obstruction Skeletal structures: No lytic or blastic lesions are seen. IMPRESSION: 1. Findings are consistent with acute sigmoid diverticulitis. 2. Small foci of intraperitoneal free air in the pelvis indicate perforation. 3. There is no organized fluid collection to suggest abscess. 4. There is a 1.9 cm indeterminant low-attenuation lesion arising from the body of the pancreas. This is pathologically indeterminant, and correlation with a contrast-enhanced MRI of the pancreas is recommended for further evaluation. 5. 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 6. 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 8. Additional findings as above. ACT 112: Positive. There are findings on this exam that require communication between the performing entity and the patient following Patient Test Result Information Act ([place] Act 112) guidelines. Electronically signed by: Ramón De La Cruz M.D. 12/21/2020 7:49 AM Discharge Plan Visit Data Chief Complaint: Abdominal Pain Stated Complaint: PAIN IN LOWER ABDOMEN ED Provider: Thelma Govea Discharge Problem: Sigmoid diverticulitis, Perforation of sigmoid colon due to diverticulitis Forms Stand Alone Forms: [facility] [employer] Prescriptions Prescriptions: No Action No Known Home Medications RF: 0 Referrals Referrals: Mana Myers CRNP [Primary Care Provider] -
[2020-12-21 06:36] LABS: Basophils # (auto) 0.04 K/uL (0-0.2); Basophils % (auto) 0.2 %; Eosinophils # (auto) 0.15 K/uL (0-0.5); Eosinophils % (auto) 0.8 %; Hematocrit (blood only) 46.4 % (42-52); Hemoglobin 16.3 g/dL (14.0-18.0); Immature Granulocytes # (auto) 0.04 K/uL (0.00-0.02); Immature Granulocytes % (auto) 0.2 %; Lymphocytes % (auto) 16.9 %; Mean Corpuscular Hgb Conc 35.1 g/dL (32-36); Mean Corpuscular Volume 88.2 fL (80-100); Mean Platelet Volume 9.5 fL (7.4-10.4); Monocytes # (auto) 2.45 K/uL (0.11-0.59); Monocytes % (auto) 13.3 %; Neutrophils # (auto) 12.61 K/uL (1.4-6.5); Neutrophils % (auto) 68.6 %; Platelet Count 308 K/uL (130-400); RDW Coefficient of Variation 14.2 % (11.5-14.5); RDW Standard Deviation 45.8 fL (36.4-46.3); Red Blood Count 5.26 M/uL (4.7-6.1); White Blood Count 18.39 K/uL (4.8-10.8)
[2020-12-21] MEDS ORDERED: HYDROmorphone INJ 0.5 MG/0.5 ML SYR ONE (06:48)
[2020-12-21 06:56] LABS: Albumin Level 3.5 gm/dl (3.4-5.0); BUN Creatinine Ratio 9.5 (10-20); Calcium 9.3 mg/dl (8.5-10.1); Creatinine Clr Calc Pharmacy 92.8 ml/min; Est GFR (African American) 112.6 ml/min; Est GFR (Non-African American) 97.2 ml/min
[2020-12-21 06:59] LABS: Albumin Globulin Ratio 0.9 (0.9-2); Bilirubin,Total 1.4 mg/dl (0.2-1); Globulin 4.1 gm/dl (2.5-4.0); Total Protein 7.6 gm/dl (6.4-8.2)
[2020-12-21] MEDS ORDERED: HYDROmorphone INJ 0.5 MG/0.5 ML SYR IV STA (06:59)
[2020-12-21] MEDS ORDERED: OPTIRAY 320 100ml IV ONE ×2 (07:21→23:36)
--- NOTE | 2020-12-21 07:50 | CT Scan Report ---
CT SCAN OF THE ABDOMEN AND PELVIS WITH IV CONTRAST CLINICAL HISTORY: Right lower quadrant abdominal pain. COMPARISON STUDY: No priors. TECHNIQUE: Following the IV administration of 94 cc of Optiray 320, CT scan of the abdomen and pelvi s is performed from the lung bases to the proximal femora. Images are reviewed in the axial, sagittal , and coronal planes. IV contrast was administered without complication. A dose lowering technique wa s utilized adhering to the principles of ALARA. CT DOSE: 400.12 mGy.cm FINDINGS: Lung bases: The heart is normal in size and without pericardial effusion. The lung bases are clear no ting bibasilar scarring/atelectasis. There is a tiny hiatal hernia. Liver: The contrast-enhanced liver is normal in size, contour, and attenuation. There is no intrahepa tic biliary ductal dilatation. The hepatic veins and portal veins are patent. Gallbladder: Unremarkable. Spleen: Normal in size and attenuation. Pancreas: There is an indeterminant 1.9 cm low-attenuation lesion arising from the body of the pancre as seen on image #110. The pancreatic duct is normal in caliber. Adrenal glands: Unremarkable. Kidneys: The contrast enhanced kidneys are normal in size and without hydronephrosis. The kidneys enh ance symmetrically. Abdominal vasculature: There is advanced atherosclerotic calcification of the abdominal aorta. An inf rarenal abdominal aortic aneurysm measures up to 3.5 cm. 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 Bowel: There is mild colonic diverticulosis. There is wall thickening and edema with pericolonic infi ltration and fluid involving the sigmoid colon consistent with acute diverticulitis. No bowel obstruc tion is seen. No organized fluid collection is seen to suggest abscess. The appendix is well-visuali zed and normal. Peritoneum: There are small foci of intraperitoneal free air identified in the central pelvis (axial images #282 and #289). Trace free fluid is seen in the pelvis. Lymphadenopathy: None. Pelvic viscera: The prostate gland is enlarged and heterogeneous. The bladder is distended, the wall appears thickened and trabeculated indicating chronic outlet obstruction Skeletal structures: No lytic or blastic lesions are seen. IMPRESSION: 1. Findings are consistent with acute sigmoid diverticulitis. 2. Small foci of intraperitoneal free air in the pelvis indicate perforation. 3. There is no organized fluid collection to suggest abscess. 4. There is a 1.9 cm indeterminant low-attenuation lesion arising from the body of the pancreas. This is pathologically indeterminant, and correlation with a contrast-enhanced MRI of the pancreas is rec ommended for further evaluation. 5. 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 6. 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 8. Additional findings as above. ACT 112: Positive. There are findings on this exam that require communication between the performing entity and the patient following Patient Test Result Information Act ([place] Act 112) guidelines. Electronically signed by: Ramón De La Cruz M.D. 12/21/2020 7:49 AM
[2020-12-21] MEDS ORDERED: PIPERACILL/TAZOBAC CONSULT ACTIVE PRN (08:01)
[2020-12-21] MEDS ORDERED: PIPERACILLIN/TAZOBACTAM 4.5 GM/120 ML BAG IV ONE (08:01)
--- NOTE | 2020-12-21 08:54 | Surgery Consultation ---
Date of Consultation December 21, 2020 Assessment & Plan (1) Perforation of sigmoid colon due to diverticulitis: This is a 55yM with no significant PMH who presented to the [facility] ED on 12/21/20 with complaints of abdominal pain starting yesterday morning. CT scan in the ER revealed findings are consistent with acute sigmoid diverticulitis along with a small foci of intraperitoenal free air in the pelvis indicating perforation. No organized fluid collection to suggest abscess. WBC 18. Patient is afebrile with stable vitals. On exam patient's abdomen is soft, tender to palpation in the supra-pubic region and in both the RLQ &LLQ. Based on history, exam, clinical findings we would recommend a trial of conservative management and supportive care. Appreciate hospitalists admitting patient for medical management. Agree with NPO with small amount of ice for now, IVF hydration, and IV abx (zosyn would be fine). We will continue to follow closely for any change in patient's status and hopefully patient will improve with current measures and can transition to po abx at time of discharge to complete course once symptoms improve. He will also benefit from an outpatient colonoscopy for further evaluation upon discharge in ~6-8weeks. Supervising Physician Co-Signing Physician Notes Patient seen and examined, labs and imaging reviewed, agree with above. 55 y/o male with diverticulitis with contained perforation. No history of prior colonoscopy. On exam afvss, nad, aaox3, abd soft, ttp in mid abdomen, localized guarding. wbc 18, ct personally reviewed and interpreted with diverticulitis with contained perforation, no abscess, no free air. no surgical intervention at this time, plan for iv abx, ivf's, pain control, bowel rest. Surgery will follow. History of Present Illness Reason for Consultation: abdominal pain History of Present Illness This is a 55yM with no significant PMH who presented to the [facility] ED on 12/21/20 with complaints of abdominal pain starting yesterday morning. He had a few cups of coffee in the AM, but nothing to eat. Throughout the day he reports his pain getting worse. He endorses some nausea, no vomiting. He presented to the ER due to ongoing pain. CT scan in the ER revealed findings consistent with acute sigmoid diverticulitis along with a small foci of intraperitoenal free air in the pelvis indicating perforation. No organized fluid collection to suggest abscess. He says he never had an episode of diverticulitis before. Pain is mostly located in the mid lower abdomen and he rates his pain an 8/10 in severity. He has never undergone a colonoscopy. He has no prior surgical history. He is not passing any flatus, last BM was yesterday AM. No fevers/chills. No SOB/CP. Allergies Allergy/AdvReac Type Severity Reaction Status Date / Time No Known Allergies Allergy Unverified 12/21/20 07:58 Home Medications Medication Instructions Recorded Confirmed Type No Known Home Medications 05/12/18 12/21/20 History Patient History Medical History (Updated 12/21/20 @ 13:07 by Ivan Lou MD) No known health problems Family History Other No pertinent family history Social History Smoking Status: Current every day smoker Tobacco Type: Cigarettes Cigarettes Per Day: 1 pack per day; Do You Dip or Chew Tobacco: No; Tobacco Cessation Education Requested by Patient: No Hx Alcohol Use: Yes Alcohol type: beer Hx Substance Use: No Preferred Language: [place] Citizen Communication Ability: Effective Ad Operations Intern Required: No Beliefs That Will Affect Care: None Current Living Situation: Significant Other Other Information That Helps Us Care for You: No Feels Safe at Home: Yes Safety Concerns: Feels Safe At This Time Assistive Devices: Glasses Review of Systems Constitutional: no fever and no chills Respiratory: no dyspnea Cardiovascular: no chest pain Gastrointestinal: + abdominal pain and + nausea; no vomiting Physical Exam Physical Exam: awake/alert, NAD Constitutional: WD/WN, vitals as above Respiratory: normal respiratory effort; no respiratory distress Gastrointestinal (Abdomen): Inspection/Auscultation: no abdominal surgical scar Percussion/Palpation: + abdomen tender (generalized ttp, worse in the suprapubic area and RLQ regions), + guarding and abdomen soft Results & Data ([facility]) Vital Signs (Past 12 Hours) Vital Signs Temp Pulse Resp BP Pulse Ox 12/21/20 07:30 82 16 12/21/20 07:00 88 17 109/71 95 12/21/20 06:30 83 14 126/78 92 12/21/20 06:10 88 27 H 102/65 97 12/21/20 05:45 36.6 C 108 H 16 131/[address] SCAN OF THE ABDOMEN AND PELVIS WITH IV CONTRAST CLINICAL HISTORY: Right lower quadrant abdominal pain. COMPARISON STUDY: No priors. TECHNIQUE: Following the IV administration of 94 cc of Optiray 320, CT scan of the abdomen and pelvis is performed from the lung bases to the proximal femora. Images are reviewed in the axial, sagittal, and coronal planes. IV contrast was administered without complication. A dose lowering technique was utilized adhering to the principles of ALARA. CT DOSE: 400.12 mGy.cm FINDINGS: Lung bases: The heart is normal in size and without pericardial effusion. The lung bases are clear noting bibasilar scarring/atelectasis. There is a tiny hiatal hernia. Liver: The contrast-enhanced liver is normal in size, contour, and attenuation. There is no intrahepatic biliary ductal dilatation. The hepatic veins and portal veins are patent. Gallbladder: Unremarkable. Spleen: Normal in size and attenuation. Pancreas: There is an indeterminant 1.9 cm low-attenuation lesion arising from the body of the pancreas seen on image #110. The pancreatic duct is normal in caliber. Adrenal glands: Unremarkable. Kidneys: The contrast enhanced kidneys are normal in size and without hydronephrosis. The kidneys enhance symmetrically. Abdominal vasculature: There is advanced atherosclerotic calcification of the abdominal aorta. An infrarenal abdominal aortic aneurysm measures up to 3.5 cm. 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 Bowel: There is mild colonic diverticulosis. There is wall thickening and edema with pericolonic infiltration and fluid involving the sigmoid colon consistent with acute diverticulitis. No bowel obstruction is seen. No organized fluid collection is seen to suggest abscess. The appendix is well-visualized and normal. Peritoneum: There are small foci of intraperitoneal free air identified in the central pelvis (axial images #282 and #289). Trace free fluid is seen in the pelvis. Lymphadenopathy: None. Pelvic viscera: The prostate gland is enlarged and heterogeneous. The bladder is distended, the wall appears thickened and trabeculated indicating chronic outlet obstruction Skeletal structures: No lytic or blastic lesions are seen. IMPRESSION: 1. Findings are consistent with acute sigmoid diverticulitis. 2. Small foci of intraperitoneal free air in the pelvis indicate perforation. 3. There is no organized fluid collection to suggest abscess. 4. There is a 1.9 cm indeterminant low-attenuation lesion arising from the body of the pancreas. This is pathologically indeterminant, and correlation with a c ontrast-enhanced MRI of the pancreas is recommended for further evaluation. 5. 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 6. 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 8. Additional findings as above. ACT 112: Positive. There are findings on this exam that require communication between the performing entity and the patient following Patient Test Result Information Act ([place] Act 112) guidelines. Electronically signed by: Ramón De La Cruz M.D. 12/21/2020 7:49 AM PG Care Time/CCT Total # of Minutes Spent Total Time Spent with Patient: Total time spent is greater than 50% in coordination of care (as documented) at patient's floor/unit and/or counseling patient: Coding Level of Care Code 91625 Inpt Consult Level 3 Diagnoses Perforation of sigmoid colon due to diverticulitis K57.20
[2020-12-21] MEDS ORDERED: MoRPHine SULFATE 2 MG/ML CARP IV PRN ×2 (09:21→14:42)
[2020-12-21] MEDS ORDERED: ONDANSETRON INJ 2 MG/ML 2 ML VIAL IV PRN (09:21)
--- NOTE | 2020-12-21 09:23 | History & Physical Report ---
Date of Service December 21, 2020 Assessment & Plan (1) Perforation of sigmoid colon due to diverticulitis: Plan: Davon Romero is a 55y/o M with PMH significant for 40+ year smoking history; who presented to the ER for evaluation of abdominal pain that had been present over the last day. Sigmoid diverticulitis with microperforation: - CT abd/pelvis demonstrates findings of acute sigmoid diverticulitis, and a small foci of intraperitoneal free air indicating perforation. 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 Noticed the pain first thing Monday morning and this progressively has increased over time. Has not previously had any issues with his abdomen, nor has any history of abdominal surgeries. Has not been able to tolerate eating or drinking since this started yesterday. Has not had vomiting, has had some nausea due to the pain. Allergies Allergy/AdvReac Type Severity Reaction Status Date / Time No Known Allergies Allergy Unverified 12/21/20 07:58 Home Medications Medication Instructions Recorded Confirmed Type No Known Home Medications 05/12/18 12/21/20 History Past Med/Surg History Medical History (Updated 12/21/20 @ 13:07 by Ivan Lou MD) No known health problems Family History Other No pertinent family history Social History Smoking Status: Current every day smoker Tobacco Type: Cigarettes Cigarettes Per Day: 1 pack per day; Do You Dip or Chew Tobacco: No; Tobacco Cessation Education Requested by Patient: No Hx Alcohol Use: Yes Alcohol type: beer Hx Substance Use: No Preferred Language: Croatian Communication Ability: Effective Clinical Trials Data Coordinator Required: No Beliefs That Will Affect Care: None Current Living Situation: Significant Other Other Information That Helps Us Care for You: No Feels Safe at Home: Yes Safety Concerns: Feels Safe At This Time Assistive Devices: Glasses Review of Systems Review of Systems: All systems reviewed & are unremarkable except as noted in HPI & below Physical Exam Constitutional: WD/WN, vitals as above Eyes: PERRL, conjunctivae normal, anicteric sclerae Respiratory: normal respiratory effort, lungs clear to auscultation Auscultation: no crackles, no rales, no rhonchi and no wheezes Cardiovascular: Rate/Rhythm: regular rate and regular rhythm Heart Sounds: no gallop, no murmur and no cardiac rub Vessels: normal peripheral pulses; no JVD Extremities: no edema Gastrointestinal (Abdomen): Inspection/Auscultation: + abdomen distended; + abnormal bowel sounds (Hypoactive) Percussion/Palpation: + abdomen tender, + guarding, abdomen soft and normal to percussion; no hepatosplenomegaly, no hernia and no abdominal mass Musculoskeletal: no cyanosis or clubbing, extremities motor strength 5/5 Skin: no rashes, warm and dry Neurologic: PERRL, EOMI, accommodation nl, no face palsy, no dysarthria CN's II-XI intact bilaterally and moves all extremities Psychiatric: Orientation: alert and oriented x 3 Results & Data Results & Data ([facility]) Vital Signs (Past 12 Hours) Vital Signs Temp Pulse Resp BP Pulse Ox 12/21/20 07:30 82 16 12/21/20 07:00 88 17 109/71 95 12/21/20 06:30 83 14 126/78 92 12/21/20 06:10 88 27 H 102/65 97 12/21/20 05:45 36.6 C 108 H 16 131/87 96 Laboratory Results 12/21/20 12/21/20 12/21/20 Range/Units 06:10 06:10 06:00 WBC (4.8-10.8) K/uL RBC (4.7-6.1) M/uL Hgb (14.0-18.0) g/dL Hct (42-52) % MCV (80-100) fL MCH (25-34) pg MCHC (32-36) g/dL RDW Std Deviation (36.4-46.3) fL RDW Coeff of Juliane (11.5-14.5) % Plt Count (130-400) K/uL MPV (7.4-10.4) fL Immature Gran % (Auto) % Neut % (Auto) % Lymph % (Auto) % Ralls % (Auto) % Eos % (Auto) % Baso % (Auto) % Neut # (Auto) (1.4-6.5) K/uL Lymph # (Auto) (1.2-3.4) K/uL Ralls # (Auto) (0.11-0.59) K/uL Eos # (Auto) (0-0.5) K/uL Baso # (Auto) (0-0.2) K/uL Immature Gran # (Auto) (0.00-0.02) K/uL Sodium 135 L (136-145) mmol/L Potassium 4.0 (3.5-5.1) mmol/L Chloride 106 (98-107) mmol/L Carbon Dioxide 22 (21-32) mmol/L Anion Gap 7.0 (3-11) BUN 8 (7-18) mg/dl Creatinine 0.87 (0.6-1.4) mg/dl Est Cr Clr Drug Dosing 92.8 ml/min Est GFR ( Amer) 112.6 ml/min Est GFR (Non-Af Amer) 97.2 ml/min BUN/Creatinine Ratio 9.5 L (10-20) Glucose 102 H (70-99) mg/dl Calcium 9.3 (8.5-10.1) mg/dl Total Bilirubin 1.4 H (0.2-1) mg/dl AST 13 L (15-37) U/L ALT 27 (12-78) U/L Alkaline Phosphatase 105 (45-117) U/L Total Protein 7.6 (6.4-8.2) gm/dl Albumin 3.5 (3.4-5.0) gm/dl Globulin 4.1 H (2.5-4.0) gm/dl Albumin/Globulin Ratio 0.9 (0.9-2) Lipase 72 L (73-393) U/L COVID-19 Eval Order Covid19 at [facility] SARS-CoV-2 (PCR) NEGATIVE (Negative) 12/21/20 Range/Units 06:00 WBC 18.39 H (4.8-10.8) K/uL RBC 5.26 (4.7-6.1) M/uL Hgb 16.3 (14.0-18.0) g/dL Hct 46.4 (42-52) % MCV 88.2 (80-100) fL MCH 31.0 (25-34) pg MCHC 35.1 (32-36) g/dL RDW Std Deviation 45.8 (36.4-46.3) fL RDW Coeff of Juliane 14.2 (11.5-14.5) % Plt Count 308 (130-400) K/uL MPV 9.5 (7.4-10.4) fL Immature Gran % (Auto) 0.2 % Neut % (Auto) 68.6 % Lymph % (Auto) 16.9 % Ralls % (Auto) 13.3 % Eos % (Auto) 0.8 % Baso % (Auto) 0.2 % Neut # (Auto) 12.61 H (1.4-6.5) K/uL Lymph # (Auto) 3.10 (1.2-3.4) K/uL Ralls # (Auto) 2.45 H (0.11-0.59) K/uL Eos # (Auto) 0.15 (0-0.5) K/uL Baso # (Auto) 0.04 (0-0.2) K/uL Immature Gran # (Auto) 0.04 H (0.00-0.02) K/uL Sodium (136-145) mmol/L Potassium (3.5-5.1) mmol/L Chloride (98-107) mmol/L Carbon Dioxide (21-32) mmol/L Anion Gap (3-11) BUN (7-18) mg/dl Creatinine (0.6-1.4) mg/dl Est Cr Clr Drug Dosing ml/min Est GFR ( Amer) ml/min Est GFR (Non-Af Amer) ml/min BUN/Creatinine Ratio (10-20) Glucose (70-99) mg/dl Calcium (8.5-10.1) mg/dl Total Bilirubin (0.2-1) mg/dl AST (15-37) U/L ALT (12-78) U/L Alkaline Phosphatase (45-117) U/L Total Protein (6.4-8.2) gm/dl Albumin (3.4-5.0) gm/dl Globulin (2.5-4.0) gm/dl Albumin/Globulin Ratio (0.9-2) Lipase (73-393) U/L COVID-19 Eval Order SARS-CoV-2 (PCR) (Negative) Diagnostic Findings Impressions Abdomen/Pelvis CT 12/21/20 06:00 CT SCAN OF THE ABDOMEN AND PELVIS WITH IV CONTRAST CLINICAL HISTORY: Right lower quadrant abdominal pain. COMPARISON STUDY: No priors. TECHNIQUE: Following the IV administration of 94 cc of Optiray 320, CT scan of the abdomen and pelvis is performed from the lung bases to the proximal femora. Images are reviewed in the axial, sagittal, and coronal planes. IV contrast was administered without complication. A dose lowering technique was utilized adhering to the principles of ALARA. CT DOSE: 400.12 mGy.cm FINDINGS: Lung bases: The heart is normal in size and without pericardial effusion. The lung bases are clear noting bibasilar scarring/atelectasis. There is a tiny hiatal hernia. Liver: The contrast-enhanced liver is normal in size, contour, and attenuation. There is no intrahepatic biliary ductal dilatation. The hepatic veins and portal veins are patent. Gallbladder: Unremarkable. Spleen: Normal in size and attenuation. Pancreas: There is an indeterminant 1.9 cm low-attenuation lesion arising from the body of the pancreas seen on image #110. The pancreatic duct is normal in c aliber. Adrenal glands: Unremarkable. Kidneys: The contrast enhanced kidneys are normal in size and without hydronephrosis. The kidneys enhance symmetrically. Abdominal vasculature: There is advanced atherosclerotic calcification of the abdominal aorta. An infrarenal abdominal aortic aneurysm measures up to 3.5 cm. 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 Bowel: There is mild colonic diverticulosis. There is wall thickening and edema with pericolonic infiltration and fluid involving the sigmoid colon consistent with acute diverticulitis. No bowel obstruction is seen. No organized fluid collection is seen to suggest abscess. The appendix is well-visualized and normal. Peritoneum: There are small foci of intraperitoneal free air identified in the central pelvis (axial images #282 and #289). Trace free fluid is seen in the pelvis. Lymphadenopathy: None. Pelvic viscera: The prostate gland is enlarged and heterogeneous. The bladder is distended, the wall appears thickened and trabeculated indicating chronic outlet obstruction Skeletal structures: No lytic or blastic lesions are seen. IMPRESSION: 1. Findings are consistent with acute sigmoid diverticulitis. 2. Small foci of intraperitoneal free air in the pelvis indicate perforation. 3. There is no organized fluid collection to suggest abscess. 4. There is a 1.9 cm indeterminant low-attenuation lesion arising from the body of the pancreas. This is pathologically indeterminant, and correlation with a contrast-enhanced MRI of the pancreas is recommended for further evaluation. 5. 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 6. 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 8. Additional findings as above. ACT 112: Positive. There are findings on this exam that require communication between the performing entity and the patient following Patient Test Result Information Act ([place] Act 112) guidelines. Electronically signed by: Ramón De La Cruz M.D. 12/21/2020 7:49 AM Supervising Physician Co-Signing Physician Notes I personally examined the patient and verified all roe points of history and exam, discussed case, and agree with decision making with Dr Lou. Abdominal pain. Vitals noted, in general he is resting comfortably in bed although has chills at times. Appears to be a little bit uncomfortable whenever he moves. Abdomen mildly distended left lower quadrant tenderness with voluntary guarding, no rebound no rigidity. Perforated diverticulitisIV antibiotics, serial exams, time. Tobacco abuse with subsequent vascular diseaseencourage cessation, secondary risk reduction. lovenox for dvt proph Resident Activity Tracking Resident Involvement: Resident Care Provided Care Provided: Adult [facility] Medicine
[2020-12-21] MEDS: MoRPHine SULFATE 4 MG/ML 1 ML CARP\\VIAL IV PRN ×3 (10:53→14:58)
[2020-12-21] MEDS: NICOTINE 21 MG/24 HR TDSY TD SCH (13:15)
[2020-12-21 13:26] LABS: Appearance Urine Clear (Clear); Bilirubin Urine Negative (Negative); Blood Urine Negative (Negative); Color Urine Orange; Glucose Urine UA Negative (Negative); Ketones Urine Negative (Negative); Leukocyte Esterase Urine Negative (Negative); Nitrite Urine Negative (Negative); Protein Urine Negative (Negative); Specific Gravity Urine 1.044 (1.000-1.030); Urobilinogen Urine Negative (Negative)
[2020-12-21] MEDS ORDERED: ACETAMINOPHEN 325 MG TAB PO PRN (14:43)
[2020-12-21] MEDS: SODIUM CHLORIDE 0.9% 1000ML 1,000 ML IV SCH ×3 (15:00→22:52)
[2020-12-21] MEDS: PIPERACILLIN/TAZOBACTAM 3.375 GM in DEXTROSE 5% 100 ML IV SCH ×2 (15:19→23:43)
[2020-12-21] MEDS ORDERED: NALOXONE HCL 0.4 MG/1 ML VIAL/CARP IV PRN (17:57)
[2020-12-21] MEDS: MoRPHine SULFATE PCA 30 MG/30 ML IV PRN (18:44)
--- NOTE | 2020-12-21 19:10 | Billing Data ---
Date of Service December 21, 2020 Coding Level of Care Code 72917 Initial Inpt Care Lvl 3
[2020-12-21] MEDS ORDERED: ACETAMINOPHEN 1000 MG/100 ML IV IV PRN (20:35)
--- NOTE | 2020-12-22 01:07 | Communication Note ---
Date of Service: December 22, 2020 I was called by RN asking to evaluate Mr. Romero at bedside. He is 55-year-old male admitted with acute sigmoid diverticulitis this morning. Patient CT scan this morning showed that patient had findings with acute sigmoid diverticulitis with a small foci of intraperitoneal air and no abscess. Patient has been admitted to the medical service and has been treated conservatively with intravenous antibiotics, analgesics, and bowel rest. He is also receiving IV fluid for hydration. Approximate 2 hours ago the patient developed worsening abdominal pain. The patient said the pain was located in the lower abdomen and was slightly worse than what he noted at time of admission. Medical service ordered stat CT scan of the abdomen pelvis were patient was noted to have again sigmoid diverticulitis with evidence of perforation and extensive inflammatory changes and scattered foci of air trace amount of free fluid in the abdomen. I came and evaluated the patient at bedside and by the time of my arrival the patient said the pain did ease up slightly after analgesics were administered. On exam the patient's abdomen is mildly distended. He is noted to have guarding in the lower abdomen and pain with palpation with rebound tenderness in the lower abdomen.On exam the patient is noted be normotensive with slight tachycardia with a heart rate in the 90s. His respiratory rate is normal. Patient was noted to have 1 episode of low-grade fever at approximate 10:00 PM last night however he has been afebrile since then. The CT scan was reviewed with Dr. Rooney there are no findings that would prompt an emergent operation at this time. I discussed with the patient that an emergent operation would almost certainly necessitate a colostomy which she would like to avoid. I explained to him the rationale for treating him conservatively in hopes of avoiding a colostomy and if he should require surgery would be best performed once he is over this acute episode so 1 stage operation can be performed. Recommend continue conservative management with intravenous antibiotics in form of Zosyn, IV fluid for hydration, and continued use of analgesics. We will continue following while he is hospitalized
[2020-12-22] MEDS: SODIUM CHLORIDE 0.9% 1000ML 1,000 ML IV SCH ×4 (06:10→21:19)
[2020-12-22] MEDS: PIPERACILLIN/TAZOBACTAM 3.375 GM in DEXTROSE 5% 100 ML IV SCH ×3 (06:10→22:38)
[2020-12-22 06:30] LABS: Basophils # (auto) 0.04 K/uL (0-0.2); Basophils % (auto) 0.2 %; Eosinophils % (auto) 0.5 %; Hematocrit (blood only) 43.3 % (42-52); Hemoglobin 14.9 g/dL (14.0-18.0); Immature Granulocytes # (auto) 0.05 K/uL (0.00-0.02); Immature Granulocytes % (auto) 0.3 %; Lymphocytes # (auto) 1.89 K/uL (1.2-3.4); Lymphocytes % (auto) 9.7 %; Mean Corpuscular Hemoglobin 30.8 pg (25-34); Mean Corpuscular Hgb Conc 34.4 g/dL (32-36); Mean Corpuscular Volume 89.6 fL (80-100); Mean Platelet Volume 9.9 fL (7.4-10.4); Monocytes # (auto) 1.54 K/uL (0.11-0.59); Monocytes % (auto) 7.9 %; Neutrophils # (auto) 15.88 K/uL (1.4-6.5); Neutrophils % (auto) 81.4 %; Platelet Count 257 K/uL (130-400); RDW Coefficient of Variation 14.4 % (11.5-14.5); RDW Standard Deviation 47.3 fL (36.4-46.3); Red Blood Count 4.83 M/uL (4.7-6.1)
[2020-12-22] MEDS ORDERED: ACETAMINOPHEN 1000 MG/100 ML IV IV SCH (07:00)
[2020-12-22 07:22] LABS: BUN Creatinine Ratio 7.5 (10-20); Calcium 8.6 mg/dl (8.5-10.1); Est GFR (African American) 113.7 ml/min; Est GFR (Non-African American) 98.1 ml/min; Magnesium 2.1 mg/dl (1.8-2.4); Phosphorus 3.3 mg/dl (2.5-4.9); Potassium 3.5 mmol/L (3.5-5.1)
[2020-12-22] MEDS: MoRPHine SULFATE PCA 30 MG/30 ML IV PRN ×2 (07:39→21:31)
[2020-12-22] MEDS: ACETAMINOPHEN 1,000 MG/100 ML VIAL IV SCH ×3 (08:08→22:28)
--- NOTE | 2020-12-22 08:19 | CT Scan Report ---
CT OF THE ABDOMEN AND PELVIS WITH CONTRAST CLINICAL HISTORY: Sigmoid diverticulitis, worsening abdominal pain. COMPARISON STUDY: CT of the abdomen and pelvis December 21, 2020 at 7:23 AM. TECHNIQUE: Following IV administration of 100 mL of Optiray, axial images of the abdomen and pelvis w ere obtained from the lung bases to the proximal femurs. Images were reviewed in the axial, sagittal, and coronal planes. IV contrast was administered without complication. Automated exposure control w as utilized for the study. A dose lowering technique was utilized adhering to the principles of ALAR A. CT DOSE: 372.96 mGy.cm FINDINGS: There has been interval dominant of bilateral lower lobe airspace opacities. The appearance favors atelectasis. No hepatic lesions are present. There is no biliary or pancreatic ductal dilatat ion. The spleen, adrenal glands and kidneys are unremarkable. There is no hydronephrosis. A 1.9 cm hy podense lesion along the posterior aspect of the pancreatic body on axial image [id number] is again note d. There is no peripancreatic infiltration. There is no evidence for a bowel obstruction. Colonic div erticulosis is noted. Note is made of wall thickening of the mid sigmoid colon. Adjacent inflammation has increased since CT of December 21, 2020. This extends into the mesentery. The amount of pneumoper itoneum consistent with perforation has also increased. There is trace fluid within the right paracol ic gutter. No abscess is present. The appendix is normal. Contrast within the bladder is from recent contrast-enhanced CT. 3.4 cm infrarenal abdominal aortic aneurysm is present. There is mild dilatatio n of the left common iliac artery, measuring 1.8 cm. 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 IMPRESSION: Findings consistent with interval worsening of perforated acute sigmoid diverticulitis since prior CT . Increase in pericolonic inflammation and pneumoperitoneum. No abscess. No bowel obstruction. ACT 112: Negative or not required by law. Electronically signed by: Clifton Yung M.D. 12/22/2020 8:17 AM
--- NOTE | 2020-12-22 08:40 | Hospitalist Progress Note ---
Date of Service December 22, 2020 Assessment & Plan (1) Perforation of sigmoid colon due to diverticulitis: Plan: 55yo male smoker presented to the ED with abdominal pain, found to have diverticulitis with perforation. Currently stable though with signs of worsening. Prognosis is guarded. Sigmoid diverticulitis with microperforation Patient with acute-onset abdominal pain, tachycardic on admission, leukocytosis to 18 CT abdomen/pelvis on admission demonstrates findings of acute sigmoid diverticulitis and a small foci of intraperitoneal free air indicating perforation Empiric zosyn started in ED; continue for now General surgery consulted; initially did not feel patient required urgent intervention; medical management continued 12/22: pain worsened overnight, leukocytosis slightly worsened Repeat CT: interval worsening of perforated acute sigmoid diverticulitis, increase in pericolonic inflammation and pneumoperitoneum, no abscess, no bowel obstruction 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 with 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, 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 Serial abdominal exams 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 Continue anticoagulation with lovenox Infrarenal abdominal aneurysm CT abdomen/pelvis demonstrating 3.5cm infrarenal abdominal aortic aneurysm, 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 No intervention indicated at this time Continue outpatient surveillance Tobacco use 1ppd smoker for the last 40+ years Nicotine patch (7mg) daily while inpatient Follow up outpatient FEN: NPO, sips and chips allowed, NSS @ 150mL/hr Code status: full code DVT ppx: lovenox PT/OT: not indicated Dispo: med/surg telemetry given guarded prognosis, risk of sudden deterioration Plan: I personally examined the patient and verified all roe points of history and exam, discussed case, and agree with decision making with Dr Siu Pain a bit worse off and on through the night, but better now whenever I see him, but still in pain. Vitals noted, in general laying still but no distress. HEENT normocephalic atraumatic mucous membranes moist. Breathing unlabored no accessory muscle use good effort. Abdomen is moderately distended left lower quadrant tenderness with a degree of guarding, but now also right mid and lateral abdominal tenderness with voluntary guarding. Fortunately no involuntary guarding or rebound. Perforated diverticulitis with sepsis present on admissionperitonitis seems to be progressing. Discussed with surgery, they are anticipating he will likely need surgical washout, but wanted to give more time with hopes that antibiotics would affect improvementand thereby potentially save him from the need for an ostomy. Continue current care and follow closely, surgery following closely as well. Tobacco abuse with subsequent vascular diseaseencourage cessation, secondary risk reduction DVT prophylaxisLovenox Admission and Anticipated Discharge Date Admission Date: December 21, 2020 Subjective Patient seen and evaluated at bedside this morning. Patient had severe pain overnight and required repeat CT abdomen/pelvis, which showed interval worsening of diverticulitis inflammation as well as increase in pneumoperitoneum. On interview this morning, patient reports pain improved from earlier this morning; pain is about the same as yesterday morning. Denies nausea, vomiting, fever, chills, dizziness, sweating, SOB, CP, or other symptoms. No BM since admission. Not passing flatus. Review of Systems Review of Systems: See HPI Physical Exam Physical Exam: Constitutional: ill-appearing, uncomfortable and sweating but no acute distress HEENT: NCAT, no conjunctival injection, no scleral icterus CV: regular rhythm, no murmur appreciated, extremities well-perfused, no LE edema Resp: good air movement, mild end-expiratory wheezes of upper lobes which resolves upon patient cough, no increased work of breathing GI: soft, nondistended, severe tenderness of RUQ and RLQ, moderate tenderness of LUQ and LLQ, BS hyperactive in all quadrants Neuro: AOx4, no focal neurological deficits appreciated Results & Data Results & Data ([facility]) Vital Signs (Past 12 Hours) Vital Signs Temp Pulse Resp BP Pulse Ox 12/22/20 07:04 37.7 C H 99 H 18 128/78 92 12/22/20 06:09 36.6 C 101 H 20 134/82 93 12/22/20 02:11 37.1 C 100 H 22 153/90 H 95 12/22/20 00:09 37.1 C 94 H 16 133/87 92 12/21/20 23:06 36.6 C 96 H 30 H 148/87 H 97 12/21/20 22:04 37.4 C 88 20 114/76 93 12/21/20 21:09 37.3 C 86 16 116/75 93 Resident Activity Tracking Resident Involvement: Resident Care Provided Care Provided: [facility] Medicine
--- NOTE | 2020-12-22 08:49 | Surgery Progress Note ---
Date of Service December 22, 2020 Assessment & Plan (1) Sigmoid diverticulitis: Plan: WBC remains 19 Tmax 37.9, 37.7 this AM continue matheus can have ice/sips hopefully improves over next 24 hours Admission and Anticipated Discharge Date Admission Date: December 21, 2020 Supervising Physician Co-Signing Physician Notes Patient seen and examined, labs and imaging reviewed, agree with above. 55-year-old male admitted with diverticulitis with contained small perforation. Overnight he had increasing pain and a fever, repeat CT scan showed slight worsening of his diverticulitis. Today he is still in pain but feeling better than last night. On exam he is currently afebrile though he was noted to fever overnight. Vital signs are stable. His abdomen is soft, tender to palpation in the left lower quadrant and lower mid abdomen. Localized guarding. White blood cell count 19.5 up from 18.4. We will continue with nonoperative management. Patient's condition continues to worsen over the next 24 to 48 hours we will plan for sigmoidectomy and Christensen's. Subjective severe pain overnight tho improved this AM, no flatus/BM Physical Exam Gastrointestinal (Abdomen): Inspection/Auscultation: abdomen normal to inspection Percussion/Palpation: + abdomen tender and abdomen soft Results & Data ([facility]) Vital Signs (Past 12 Hours) Vital Signs Temp Pulse Resp BP Pulse Ox 12/22/20 07:04 37.7 C H 99 H 18 128/78 92 12/22/20 06:09 36.6 C 101 H 20 134/82 93 12/22/20 02:11 37.1 C 100 H 22 153/90 H 95 12/22/20 00:09 37.1 C 94 H 16 133/87 92 12/21/20 23:06 36.6 C 96 H 30 H 148/87 H 97 12/21/20 22:04 37.4 C 88 20 114/76 93 12/21/20 21:09 37.3 C 86 16 116/75 93 PG Care Time/CCT Total # of Minutes Spent Total Time Spent with Patient: Total time spent is greater than 50% in coordination of care (as documented) at patient's floor/unit and/or counseling patient: Coding Level of Care Code 80167 Subseq Hosp Care Lvl 2 Diagnoses Sigmoid diverticulitis K57.32
[2020-12-22] MEDS: ENOXAPARIN INJ 40 MG/0.4 ML SYR SQ SCH (09:19)
[2020-12-22] MEDS: NICOTINE 21 MG/24 HR TDSY TD SCH (09:20)
[2020-12-23] MEDS: SODIUM CHLORIDE 0.9% 1000ML 1,000 ML IV SCH ×2 (04:56→15:54)
[2020-12-23 05:43] LABS: Basophils # (auto) 0.03 K/uL (0-0.2); Basophils % (auto) 0.1 %; Eosinophils # (auto) 0.27 K/uL (0-0.5); Eosinophils % (auto) 1.2 %; Hematocrit (blood only) 43.2 % (42-52); Hemoglobin 14.6 g/dL (14.0-18.0); Immature Granulocytes # (auto) 0.07 K/uL (0.00-0.02); Immature Granulocytes % (auto) 0.3 %; Lymphocytes # (auto) 1.98 K/uL (1.2-3.4); Mean Corpuscular Hemoglobin 30.4 pg (25-34); Mean Corpuscular Hgb Conc 33.8 g/dL (32-36); Mean Platelet Volume 9.5 fL (7.4-10.4); Monocytes # (auto) 1.79 K/uL (0.11-0.59); Monocytes % (auto) 8.2 %; Neutrophils % (auto) 81.2 %; Platelet Count 258 K/uL (130-400); RDW Coefficient of Variation 14.4 % (11.5-14.5); RDW Standard Deviation 47.2 fL (36.4-46.3); White Blood Count 21.94 K/uL (4.8-10.8)
[2020-12-23] MEDS: PIPERACILLIN/TAZOBACTAM 3.375 GM in DEXTROSE 5% 100 ML IV SCH ×3 (06:01→22:54)
[2020-12-23] MEDS: ACETAMINOPHEN 1,000 MG/100 ML VIAL IV SCH ×3 (06:01→22:45)
[2020-12-23 06:13] LABS: BUN Creatinine Ratio 9.1 (10-20); Calcium 8.4 mg/dl (8.5-10.1); Creatinine Clr Calc Pharmacy 104.9 ml/min; Est GFR (African American) 118.4 ml/min; Est GFR (Non-African American) 102.2 ml/min; Potassium 3.7 mmol/L (3.5-5.1)
--- NOTE | 2020-12-23 07:14 | Hospitalist Progress Note ---
Date of Service December 23, 2020 Assessment & Plan (1) Perforation of sigmoid colon due to diverticulitis: Plan: 55yo male smoker presented to the ED with abdominal pain, found to have diverticulitis with perforation. Currently stable though with signs of worsening. Prognosis is guarded. Sigmoid diverticulitis with microperforation Patient with acute-onset abdominal pain, tachycardic on admission, leukocytosis to 18 CT abdomen/pelvis on admission demonstrates findings of acute sigmoid diverticulitis and a small foci of intraperitoneal free air indicating perforation Empiric zosyn started in ED; continue for now General surgery consulted; initially did not feel patient required urgent intervention; medical management continued 12/22: pain worsened overnight, leukocytosis worse, rCT-H shows interval worsening of perforated sigmoid diverticulitis, + pericolonic inflammation, + pneumoperitoneum, no abscess or obstruction 12/23: general surgery plans to take patient to the OR today; will follow closely 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 with 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, 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 Serial abdominal exams 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 Continue anticoagulation with lovenox Infrarenal abdominal aneurysm CT abdomen/pelvis demonstrating 3.5cm infrarenal abdominal aortic aneurysm, 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 No intervention indicated at this time Continue outpatient surveillance Tobacco use 1ppd smoker for the last 40+ years Nicotine patch (7mg) daily while inpatient Follow up outpatient FEN: NPO, sips and chips allowed, NSS @ 150mL/hr Code status: full code DVT ppx: lovenox PT/OT: not indicated Dispo: med/surg telemetry given guarded prognosis, risk of sudden deterioration Admission and Anticipated Discharge Date Admission Date: December 21, 2020 Supervising Physician Co-Signing Physician Notes I personally examined the patient and verified all roe points of history and exam, discussed case, and agree with decision making with Dr Siu Seen postopstill a bit sedated after anesthesia, but no problems noted per nursing. His significant other is at the bedside, answered all questions the best my ability and to her satisfaction. Vitals noted, still sedated but no distress. HEENT normocephalic atraumatic mucous membranes moist. Breathing unlabored no accessory muscle use good effor t. No focal neuro deficits at rest Perforated diverticulitis with sepsis present on admissionnow postop. Appears stable. Continue IV antibiotics. Tobacco abuse with subsequent vascular diseaseencourage cessation, secondary risk reduction DVT prophylaxisLovenox Subjective Patient seen and evaluated at bedside this morning. Patient's pain continues - no better or worse than yesterday. Overnight, pain was "intense" but tolerable with the BUNK ASSEMBLER. Patient denies CP, SOB, nausea, vomiting, or a sudden worsening of symptoms. Still has not had a BM and is not passing flatus. No new concerns. Review of Systems Review of Systems: See HPI Physical Exam Physical Exam: Constitutional: ill-appearing, uncomfortable and sweating but no acute distress HEENT: NCAT, no conjunctival injection, no scleral icterus CV: regular rhythm, no murmur appreciated, extremities well-perfused, no LE edema Resp: good air movement, mild end-expiratory wheezes of upper lobes which resolves upon patient cough, no increased work of breathing GI: soft, nondistended, severe tenderness of RLQ, moderate tenderness of, RUQ, LUQ, and LLQ, BS hyperactive in all quadrants Neuro: AOx4, no focal neurological deficits appreciated Results & Data Results & Data ([facility]) Vital Signs (Past 12 Hours) Vital Signs Temp Pulse Pulse Resp BP Pulse Ox 12/23/20 02:40 36.6 C 90 20 125/76 95 12/22/20 23:42 37.1 C 94 H 18 120/77 93 12/22/20 23:33 99 H Resident Activity Tracking Resident Involvement: Resident Care Provided Care Provided: Adult Hospital Medicine
[2020-12-23] MEDS: NICOTINE 21 MG/24 HR TDSY TD SCH (07:42)
[2020-12-23] MEDS: ENOXAPARIN INJ 40 MG/0.4 ML SYR SQ SCH (07:43)
--- NOTE | 2020-12-23 08:26 | Surgery Progress Note ---
Date of Service December 23, 2020 Assessment & Plan (1) Perforation of sigmoid colon due to diverticulitis: Plan: Patient here with perforated acute sigmoid diverticulitis WBC increased to 21 today, last fever 38.1C yesterday afternoon Still having a moderate amount of abdominal pain, is distended and tender on exam Not making much progress after 48 hours of IV abx and bowel rest We will proceed with taking patient to the OR today for surgical management Keep NPO with IV abx Consent obtained by Dr. Rooney Admission and Anticipated Discharge Date Admission Date: December 21, 2020 Supervising Physician Co-Signing Physician Notes Patient seen and examined, labs reviewed, agree with above. 55-year-old male a dmitted with diverticulitis with contained perforation. Continues to fever and have persistent pain with minimal improvement. Currenty afvss, abd with continued ttp and localized guarding. WBC 21. diverticulitis with failure to improve with abx, plan for surgery plan for diagnostic laparoscopy, laparoscopic assisted partial colectomy, possible open, possible ostomy The risks of the procedure were discussed to include but not limited to bleeding, infection, conversion open, damage surrounding structures, need for future more extensive surgery, abscess formation, and the risk of anesthesia Subjective Patient says his symptoms are about the same. He is still having a decent amount of abdominal pain. Feels warm this AM, last fever was yesterday. Physical Exam Physical Exam: awake/alert Gastrointestinal (Abdomen): Inspection/Auscultation: + abdomen distended Percussion/Palpation: + abdomen tender (generalized ttp, worst in lower abdomen) Results & Data ([facility]) Vital Signs (Past 12 Hours) Vital Signs Temp Pulse Pulse Resp BP Pulse Ox 12/23/20 07:31 37 C 66 19 130/76 95 12/23/20 07:00 107 H 12/23/20 02:40 36.6 C 90 20 125/76 95 12/22/20 23:42 37.1 C 94 H 18 120/77 93 12/22/20 23:33 99 H PG Care Time/CCT Total # of Minutes Spent Total Time Spent with Patient: Total time spent is greater than 50% in coordination of care (as documented) at patient's floor/unit and/or counseling patient: Coding Level of Care Code 27942 Subseq Hosp Care Lvl 1 Diagnoses Perforation of sigmoid colon due to diverticulitis K57.20
--- NOTE | 2020-12-23 08:53 | Anesthesiology Consultation ---
Date of Service December 23, 2020 Assessment & Plan (1) Encounter for pre-operative examination: Chart Review Chart Review: Acceptable Risk for Surgery and Patient NOT seen in Pre Admission Testing Consults Requested none History Surgery Operation Date: 12/23/20 07:00 Proposed Procedures p Laparoscopic Washout, Colon Resection with Ostomy - Aleksandr Rooney DO, FACS Height/Weight Height: 5 ft 8 in Weight: 78.2 kg Allergies Allergy/AdvReac Type Severity Reaction Status Date / Time No Known Allergies Allergy Unverified 12/21/20 07:58 Medications Home Medications Medication Instructions Recorded Confirmed Last Taken No Known Home Medications 05/12/18 12/21/20 Unknown Active Medications Generic Name Dose Route Start Last Admin Trade Name Freq PRN Reason Stop Dose Admin Enoxaparin Sodium 40 mg 12/22/20 09:00 12/23/20 07:43 Enoxaparin Inj 40 Mg/0.4 Ml Syr SQ 01/21/21 08:59 40 mg QAM IMELDA Administration Piperacillin Sod/Tazobactam 115 mls @ 28.75 mls/hr 12/21/20 15:00 12/23/20 06:01 Sod 3.375 gm/ Dextrose IV 12/31/20 14:59 28.8 mls/hr Q8H IMELDA Administration Protocol Sodium Chloride 1,000 mls @ 125 mls/hr 12/21/20 14:45 12/23/20 04:56 Nss 1000ml IV 01/20/21 14:44 125 mls/hr .Q8H IMELDA Administration Sodium Chloride 1,000 mls @ 15 mls/hr 12/21/20 18:00 12/22/20 19:12 Nss 1000ml IV 01/04/21 17:58 Not Given .Q24H IMELDA Acetaminophen 1,000 mg in 100 mls @ 400 mls/hr 12/22/20 07:00 12/23/20 06:16 Ofirmev IV 12/25/20 06:59 Infused Q8H IMELDA Infusion Protocol Miscellaneous 1 ea 12/22/20 08:59 12/23/20 07:42 Remove Nicoderm Patch N/A 01/21/21 08:58 1 ea [id number] IMELDA Administration Miscellaneous 1 ea 12/21/20 17:57 12/21/20 22:54 Incremental Warp Preparer Titration N/A 01/20/21 17:56 1 ea UD PRN Administration PRACTICE ADMINISTRATOR Dose Titration x 1 Morphine Sulfate 30 mg 12/21/20 17:57 12/22/20 21:31 Morphine Sulfate Warp Preparer 30 Mg/30 Ml IV 01/04/21 17:56 30 mg PRN PRN Administration PRACTICE ADMINISTRATOR Pain Titration Protocol Nicotine 21 mg 12/21/20 09:45 12/23/20 07:42 Nicotine 21 Mg/24 Hr Tdsy TD 01/20/21 09:44 21 mg QAM IMELDA Administration Past Medical History Medical History (Updated 12/23/20 @ 08:53 by Cristobal Rich DO) No known health problems Past Family History Family History Other No pertinent family history Social History Smoking Status: Current every day smoker tobacco type: cigarettes Smoking cigarettes per day: 1 pack per day Do You Dip or Chew Tobacco: No Hx Alcohol Use: Yes Alcohol type: beer alcohol intake frequency: 0-2 drinks per day Hx Substance Use: No Physical Exam Vital Signs Last Vital Signs Temp 98.6 F 12/23/20 07:31 Pulse 66 12/23/20 07:31 Resp 19 12/23/20 07:31 BP 130/76 12/23/20 07:31 Pulse Ox 95 12/23/20 07:31 Testing Laboratory Results 12/23/20 05:29 12/23/20 05:29 Urine Color [place] 12/21/20 13:10 Urine Appearance Clear (Clear) 12/21/20 13:10 Urine pH 5.0 (4.5-7.5) 12/21/20 13:10 Ur Specific [place] 1.044 (1.000-1.030) H 12/21/20 13:10 Urine Protein Negative (Negative) 12/21/20 13:10 Urine Glucose (UA) Negative (Negative) 12/21/20 13:10 Urine Ketones Negative (Negative) 12/21/20 13:10 Urine Nitrite Negative (Negative) 12/21/20 13:10 Ur Leukocyte Esterase Negative (Negative) 12/21/20 13:10
[2020-12-23] MEDS ORDERED: ATROPINE SULFATE 0.1 MG/ML 10ML SYR IV PRN (10:05)
[2020-12-23] MEDS ORDERED: fentaNYL citrate 100 MCG/2 ML VIAL IV PRN (10:05)
[2020-12-23] MEDS ORDERED: ePHEDrine sulfate 50 MG/ML AMP IV PRN (10:05)
[2020-12-23] MEDS ORDERED: ONDANSETRON INJ 2 MG/ML 2 ML VIAL IV PRN (10:05)
[2020-12-23] MEDS ORDERED: LIDOCAINE 2% 2 ML VIAL/AMP(20MG/ML) INFIL ONE (10:52)
[2020-12-23] MEDS ORDERED: ONDANSETRON INJ 2 MG/ML 2 ML VIAL ONE (10:52)
[2020-12-23] MEDS ORDERED: ROCURONIUM BROMIDE 10 MG/ML 5 ML VIAL IV ONE ×2 (10:52→14:36)
[2020-12-23] MEDS ORDERED: PROPOFOL IV EMULSION 10 MG/ML 20 ML VIAL IV ONE (10:52)
[2020-12-23] MEDS ORDERED: DEXAMETHASONE SOD INJ 4 MG/ML VIAL ONE (10:52)
[2020-12-23] MEDS ORDERED: MIDAZOLAM HCL 1 MG/ML 2ML VIAL ONE (10:54)
[2020-12-23] MEDS ORDERED: fentaNYL citrate 100 MCG/2 ML VIAL ONE (10:54)
[2020-12-23] MEDS ORDERED: KETAMINE 50 MG/5 ML SYRINGE ONE (11:06)
[2020-12-23] MEDS ORDERED: BUPIVACAINE 0.5 % 5 MG/1 ML MPF 30ML VIAL ONE (11:41)
[2020-12-23] MEDS ORDERED: BUPIVACAINE LIPOSOME 1.3% 266 MG/20 ML VIAL ONE (11:41)
[2020-12-23] MEDS ORDERED: HYDROmorphone INJ 2 MG/ML SYR/VIAL ONE (12:42)
[2020-12-23] MEDS ORDERED: cefOXitin 2,000 MG in DEXTROSE 5% 50 ML IV ONE (13:08)
[2020-12-23] MEDS ORDERED: SUGAMMADEX SODIUM 200 MG/2 ML VIAL IV ONE (13:42)
--- NOTE | 2020-12-23 13:53 | Electrocardiogram Report ---
Test Reason : Blood Pressure : / mmHG Vent. Rate : 089 BPM Atrial Rate : 089 BPM P-R Int : 158 ms QRS Dur : 094 ms QT Int : 364 ms P-R-T Axes : 050 014 005 degrees QTc Int : 442 ms Normal sinus rhythm Normal ECG No previous ECGs available Confirmed by Rafael Germain ([id number]) on 12/23/2020 1:53:05 PM Referred By: REFERRED SELF Confirmed By:Rafael Germain
--- NOTE | 2020-12-23 14:23 | Post Operative Brief Note ---
PG Immediate Post Op with CF Date of Surgery December 23, 2020 Pre & Post Diagnosis Operation Date: 12/23/20 07:00 Pre-Op Diagnosis: Sigmoid Colon Perforation Post-Op Diagnosis: Sigmoid Colon Perforation I identified the patient and participated in the time-out.: Yes Procedure Operation Date: 12/23/20 07:00 Actual Procedures p Diagnostic Laparoscopy, Open Sigmoidectomy, End Colostomy with Jessi's Pouch(Not Applicable) - Aleksandr Rooney DO, FACS Surgeon Aleksandr Rooney DO, FACS Disabilities Services Officer Jose Orona Estimated Blood Loss 20 Findings Consistent with Post-Op Diagnosis Diagnostic laparoscopy with turbid fluid in the pelvis, and significant distention of the small bowel prohibiting laparoscopic approach. Converted to open, lysis of adhesions performed. Contained perforation of the sigmoid colon, segmental sigmoidectomy performed. End colostomy created, Exparel injected, abdomen copiously irrigated, good hemostasis. Specimens Specimen Description: A: Sigmoid colon Drains Lindsey Catheter and Riky-Russell Drain (19fr round) Anesthesia Type General Complications none Disposition Accompanied Patient To Recovery: No Disposition: Recovery Room
[2020-12-23] MEDS ORDERED: HYDROmorphone INJ 2 MG/ML SYR/VIAL IV PRN (14:27)
[2020-12-23] MEDS ORDERED: HALOPERIDOL LACTATE 5 MG/ML 1 ML VIAL IV STA (14:31)
[2020-12-23] MEDS ORDERED: SUCCINYLCHOLINE CHLORIDE 20 MG/ML 10 ML VIAL IV ONE (14:36)
--- NOTE | 2020-12-23 14:49 | Operative Report ---
PG Post Operative Report Pre & Post Diagnosis Operation Date: 12/23/20 07:00 Pre-Op Diagnosis: Sigmoid Colon Perforation Post-Op Diagnosis: Sigmoid Colon Perforation I identified the patient and participated in the time-out.: Yes Procedure Operation Date: 12/23/20 07:00 Actual Procedures p Diagnostic Laparoscopy, Open Sigmoidectomy, End Colostomy with Jessi's Pouch(Not Applicable) - Aleksandr Rooney DO, FACS Surgeon Aleksandr Rooney DO, JOELLE Client Associate Jose Orona Estimated Blood Loss 20 Findings Consistent with Post-Op Diagnosis Diagnostic laparoscopy with turbid fluid in the pelvis, and significant distention of the small bowel prohibiting laparoscopic approach. Converted to open, lysis of adhesions performed. Contained perforation of the sigmoid colon, segmental sigmoidectomy performed. End colostomy created, Exparel injected, abdomen copiously irrigated, good hemostasis. Specimens sigmoid colon Drains 19Fr round DALE in pelvis Anesthesia Type General Complications none Disposition Accompanied Patient To Recovery: No Disposition: Recovery Room Indications 55-year-old male admitted with sigmoid diverticulitis with contained perforation. He was treated nonoperatively with IV antibiotics and bowel rest for approximately 48 hours. He had failure to improve and continue to spike fevers and his white blood cell count was rising. After discussion of his options he elected for sigmoidectomy. Plan for diagnostic laparoscopy, laparoscopic assisted colon resection, possible open, possible ostomy. The r isks of the procedure were discussed, all questions were answered, and the patient agreed to proceed with surgery as planned. Description of Procedure The patient was properly identified, consented, and taken to the operating room where he was placed in the supine position in low lithotomy position General endotracheal anesthesia was induced. A johns catheter, an NG tube, SCDs and a safety belt were placed. Preoperative antibiotics were administered. The patient's abdomen was prepped and draped in the standard sterile fashion. Surgical timeout was performed and all parties were in agreement that this was the correct patient and procedure to be performed and we continued as planned. An incision was made in the right upper quadrant and the Veress needle was inserted. Saline drop test confirmed entry into the peritoneum. The abdomen was insufflated with carbon dioxide which the patient tolerated without incident. The abdomen was then entered using the Optiview technique and a 5 mm trocar. The laparoscope was inserted and no damage from initial trocar or Veress needle placement was noted. There was some turbid fluid in the pelvis. The bowel was dilated. 5 mm ports were then placed in the right lower quadrant x2. Patient was placed in Trendelenburg position and the abdomen was examined. We were able to sweep some of the small bowel away, but due to the dilation it was difficult to safely proceed laparoscopically. We decided at this point to open. Laparoscopy was ceased. A midline incision was made and deepened down through the subcutaneous tissue to the fascia. The fascia was opened. There was a small supraumbilical hernia containing fat that was reduced. The abdomen was entered and again was noted turbid fluid and dilated bowel. The bowel was eviscerated, and milked proximally towards the duodenum. This allowed us to decompress the bowel and approximately 700 cc of bilious drainage came out of the NG tube. The Buckwalter retractor was then inserted. The fluid in the pelvis was suctioned. There was some adhesions of the small bowel and the mesentery to the sigmoid colon in the area of contained perforation. These were dissected bluntly. The bowel was inspected and no serosal injury was noted. The sigmoid colon was then mobilized by taking down the white line of Toldt with cautery. We identified the proximal portion of bowel that was supple and soft with no further inflammation. A window was created in the mesentery, and the colonwas stapled with an laparoscopic Endo BARBARA 60 mm sarah loaded stapler. We then continued to mobilize the colon down to the splaying of the tinea. A window was created around the bowel and the small bowel was divided using a 60 mm sarah loaded Endo BARBARA stapler. A purple loaded stapler was then used to divide the distal branch of the sigmoidal artery. The remainder the mesentery was taken down using the harmonic scalpel. The superior hemorrhoidal artery had some bleeding and was controlled with a 3-0 silk ligature. The sigmoid colon was resected and passed off the table specimen. The abdomen was irrigated copiously with 2 L of normal saline. The sigmoid colon was further mobilized to allow for creation of the colostomy. A circular incision was made to the left and just superior to the umbilicus to allow begin creation the ostomy. This was deepened down to the muscular fascia of the rectus muscle. The anterior fascia was divided in a cruciate fashion. The rectus muscle was bluntly dissected down to the posterior fascia which was a lso opened in a cruciate fashion. I was able to accommodate 3 fingers. The proximal colon was then brought through this newly created fascial defect and appeared to reach easily. It was observed and had good blood supply. The colon was tacked to the posterior fascia with 3-0 silk suture x2. Exparel mixed with Marcaine was injected along the fascial incisions. The abdomen was again inspected and hemostasis of found to be good. The colostomy looked healthy. A 19 Congolese round DALE drain was placed into the pelvis and exited through one of the 5 mm port sites. This was secured in place with a 2-0 nylon suture. The fascia was then closed with a running #1 looped PDS suture. The wound was irrigated and the incision was closed with dottie. The 5 mm port sites were closed with dottie. A towel was placed over the midline incision to protect it while creating the ostomy. The staple line of the colostomy was excised. The colostomy was then matured with 3-0 Vicryl sutures. It appeared healthy and patent. Colostomy bag and sterile dressings were applied. The patient was extubated in the operating room and taken to the PACU where he recovered without apparent incident. All sponge, instrument and needle counts were correct at the conclusion of the procedure. The NG tube and Johns catheter were left in place. The patient tolerated the procedure well. The physician's human resources office assistant was present and scrubbed for the entire the case. He was critical in positioning the patient, prepping and draping, retraction and exposure, resection of the colon, closure the incisions, maturing of the ostomy, and placement of the dressings. I attest to the content of the Intraoperative Record and any orders documented therein. Any exceptions are noted below.
--- NOTE | 2020-12-23 15:02 | Anesthesiology Progress Note ---
Date of Service December 23, 2020 Anesthesia Post Procedure Vital Signs Vital Signs: Temp Pulse Pulse Resp BP Pulse Ox 12/23/20 14:55 103 H 18 144/91 H 96 12/23/20 14:45 111 H 18 152/91 H 96 12/23/20 14:35 117 H 18 173/99 H 98 12/23/20 14:27 97.7 F 113 H 18 182/105 H 98 12/23/20 09:43 98.1 F 93 H 18 128/74 96 12/23/20 07:31 98.6 F 66 19 130/76 95 12/23/20 07:00 107 H 12/23/20 02:40 97.9 F 90 20 125/76 95 12/22/20 23:42 98.8 F 94 H 18 120/77 93 12/22/20 23:33 99 H 12/22/20 19:02 99.1 F 95 H 16 123/74 95 12/22/20 16:42 97.7 F 100 H 20 128/81 95 12/22/20 16:24 100 H Pain Intensity Abdomen: Pain Intensity: 5 Transfer of Care Handoff Completed per policy Notes Mental Status: alert / awake / arousable and participated in evaluation Patient Amnestic to Procedure: Yes Nausea / Vomiting: adequately controlled Pain: adequately controlled Airway Patency, RR, SpO2: stable & adequate BP & HR: stable & adequate Hydration State: stable & adequate Anesthetic Complications: no major complications apparent and Pt Satisfied with anesthetic care
[2020-12-23] MEDS: LACTATED RINGER'S 1,000 ML IV SCH ×2 (15:15→20:32)
[2020-12-23] MEDS ORDERED: TPN/PPN CONSULT PHARMACY PRN (15:44)
[2020-12-23] MEDS ORDERED: TPN/PPN CONSULT PHARMACY STA (17:37)
[2020-12-23] MEDS ORDERED: DEXTROSE 10% 1,000 ML IV PRN (17:37)
--- NOTE | 2020-12-23 17:42 | Billing Data ---
Date of Service December 22, 2020 Coding Level of Care Code 36539 Subseq Hosp Care Lvl 3
--- NOTE | 2020-12-23 17:42 | Billing Data ---
Date of Service December 23, 2020 Coding Level of Care Code 22238 Subseq Hosp Care Lvl 3
[2020-12-23] MEDS ORDERED: CHLORASEPTIC 1.4% SOLN 180 ML BTL MT PRN (23:02)
[2020-12-24] MEDS: SODIUM CHLORIDE 0.9% 1000ML 1,000 ML IV SCH (02:23)
[2020-12-24] MEDS: MoRPHine SULFATE PCA 30 MG/30 ML IV PRN ×2 (02:26→13:52)
[2020-12-24] MEDS: LACTATED RINGER'S 1,000 ML IV SCH ×2 (04:29→14:13)
[2020-12-24] MEDS: PIPERACILLIN/TAZOBACTAM 3.375 GM in DEXTROSE 5% 100 ML IV SCH ×3 (06:03→22:11)
[2020-12-24] MEDS: ACETAMINOPHEN 1,000 MG/100 ML VIAL IV SCH ×3 (06:06→22:11)
[2020-12-24 06:37] LABS: Basophils # (auto) 0.01 K/uL (0-0.2); Basophils % (auto) 0.1 %; Eosinophils # (auto) 0.01 K/uL (0-0.5); Eosinophils % (auto) 0.1 %; Hematocrit (blood only) 39.4 % (42-52); Hemoglobin 13.8 g/dL (14.0-18.0); Immature Granulocytes # (auto) 0.08 K/uL (0.00-0.02); Immature Granulocytes % (auto) 0.4 %; Lymphocytes # (auto) 1.13 K/uL (1.2-3.4); Lymphocytes % (auto) 5.8 %; Mean Corpuscular Hemoglobin 30.9 pg (25-34); Mean Corpuscular Volume 88.1 fL (80-100); Mean Platelet Volume 9.4 fL (7.4-10.4); Monocytes # (auto) 1.23 K/uL (0.11-0.59); Monocytes % (auto) 6.3 %; Neutrophils # (auto) 16.93 K/uL (1.4-6.5); Neutrophils % (auto) 87.3 %; Platelet Count 297 K/uL (130-400); RDW Coefficient of Variation 14.2 % (11.5-14.5); RDW Standard Deviation 46.1 fL (36.4-46.3); Red Blood Count 4.47 M/uL (4.7-6.1); White Blood Count 19.39 K/uL (4.8-10.8)
--- NOTE | 2020-12-24 06:56 | Hospitalist Progress Note ---
Date of Service December 24, 2020 Assessment & Plan (1) Perforation of sigmoid colon due to diverticulitis: Plan: 55yo male smoker presented to the ED with abdominal pain, found to have diverticulitis with perforation. Currently stable s/p sigmoidectomy and colostomy placement. Sigmoid diverticulitis with perforation s/p open sigmoidectomy, end colostomy Patient with acute-onset abdominal pain, tachycardic on admission, leukocytosis to 18 CT abdomen/pelvis on admission demonstrates findings of acute sigmoid diverticulitis and a small foci of intraperitoneal free air indicating perforation General surgery consulted; initially did not feel patient required urgent intervention; medical management continued 12/22: interval worsening of pain and leukocytosis, repeat imaging shows worsening of inflammation and pneumoperitoneum 12/23: patient underwent diagnostic laparoscopy which was converted to open sigmoidectomy and end colostomy 12/24: POD#1, patient recovering well, pain greatly improved, NG tube still in place NG tube continues to drain brown fluid, remove when indicated Advance diet as per surgery recommendations Continue zosyn 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 Serial abdominal exams Trend daily CBC, BMP Malnutrition Patient without PO intake since 12/20 Given growing concern for poor wound healing/surgical recovery in the setting of malnutrition, will start TPN PICC line to be placed today, pharmacy consulted for TPN initiation 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 Continue anticoagulation with lovenox Infrarenal abdominal aneurysm CT abdomen/pelvis demonstrating 3.5cm infrarenal abdominal aortic aneurysm, 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 No intervention indicated at this time Continue outpatient surveillance Tobacco use 1+ppd smoker for the last 40+ years Nicotine patch (21mg) daily while inpatient Follow up outpatient FEN: NPO, sips and chips allowed, LR @ 125mL/hr Code status: full code DVT ppx: lovenox PT/OT: not indicated Dispo: med/surg Admission and Anticipated Discharge Date Admission Date: December 21, 2020 Supervising Physician Co-Signing Physician Notes I personally examined the patient and verified all roe points of history and exam, discussed case, and agree with decision making with Dr Siu still a lot of pain, but different. Vitals noted, appearing somewhat uncomfortable but no significant distress. HEENT normocephalic atraumatic mucous membranes moist. Breathing unlabored no accessory muscle use good effort. No focal neuro deficits at rest. b/l lower Tspine paraspinals high tone/tender/decreased ROM - inhibitory pressure/direct myofascial - improved. pt tolerated well Perforated diverticulitis with sepsis present on admissionnow postop. Appears stable/improving. Continue IV antibiotics. TPN since he's already been NPO for several days, and high likelihood of post op ileus making more prolonged NPO reasonably likely. Tobacco abuse with subsequent vascular diseaseencourage cessation, secondary risk reduction somatic dysfunction - thoracic region - OMT as above DVT prophylaxisLovenox Subjective Patient seen and evaluated at bedside this morning. No acute events overnight. Patient reports a major improvement in abdominal pain since surgery yesterday, currently at a 05/23. Denies nausea, vomiting, CP, SOB, or other symptoms. Passing gas, no BM yet. Review of Systems Review of Systems: See HPI Physical Exam Physical Exam: Constitutional: ill-appearing, uncomfortable and sweating but no acute distress HEENT: no conjunctival injection, no scleral icterus, NG tube draining brown fluid CV: regular rhythm, no murmur appreciated, extremities well-perfused, no LE edema Resp: good air movement, mild end-expiratory wheezes of upper lobes which reso lves upon patient cough, no increased work of breathing GI: soft, nondistended, moderate/severe generalized tenderness without guarding or rebound, ostomy bag in place draining normal-appearing stool, no zak-ostomy erythema or edema, surgical incision c/d/i Neuro: AOx4, no focal neurological deficits appreciated Results & Data Results & Data ([facility]) Vital Signs (Past 12 Hours) Vital Signs Temp Pulse Pulse Resp BP Pulse Ox 12/24/20 03:53 37.0 C 86 20 166/90 H 94 12/24/20 00:07 36.9 C 66 18 145/84 H 96 12/23/20 22:20 80 12/23/20 19:20 36.6 C 83 18 156/83 H 98 Resident Activity Tracking Resident Involvement: Resident Care Provided Care Provided: Adult Hospital Medicine
[2020-12-24 07:09] LABS: Calcium 8.4 mg/dl (8.5-10.1); Creatinine Clr Calc Pharmacy 146.8 ml/min; Est GFR (Non-African American) 117.3 ml/min; Magnesium 2.2 mg/dl (1.8-2.4); Potassium 3.7 mmol/L (3.5-5.1)
[2020-12-24 07:20] LABS: Phosphorus 2.7 mg/dl (2.5-4.9)
[2020-12-24] MEDS: ENOXAPARIN INJ 40 MG/0.4 ML SYR SQ SCH (08:25)
[2020-12-24] MEDS: NICOTINE 21 MG/24 HR TDSY TD SCH (08:26)
[2020-12-24] MEDS ORDERED: TPN/PPN CONSULT PHARMACY PRN (08:28)
--- NOTE | 2020-12-24 09:19 | Surgery Progress Note ---
Date of Service December 24, 2020 Assessment & Plan (1) Perforation of sigmoid colon due to diverticulitis: Plan: POD 1 Jessi's WBC down slightly, afebrile cont Zosyn OOB consider removing NG later if output continue to decrease Admission and Anticipated Discharge Date Admission Date: December 21, 2020 Supervising Physician Co-Signing Physician Notes pnt s&e, agree with above, labs reviewed. POD#1 Christensen's. afvss. nad, aaox3. abd soft, appropriate ttp, dressing c/d/i, ostomy pink, minimal output. wbc 19 . continue ng and DALE, johns d/c'ed. ambulate, oobtc. Subjective feels better, pain control adequate Physical Exam Gastrointestinal (Abdomen): Inspection/Auscultation: + abdomen distended (slight), + abdominal surgical incision (dressing intact) and + abdominal surgical drain present (45 cc overnight) no ostomy output NGT 150 overnight Results & Data ([facility]) Vital Signs (Past 12 Hours) Vital Signs Temp Pulse Pulse Resp BP Pulse Ox 12/24/20 07:17 36.9 C 83 18 162/84 H 95 12/24/20 03:53 37.0 C 86 20 166/90 H 94 12/24/20 00:07 36.9 C 66 18 145/84 H 96 12/23/20 22:20 80 PG Care Time/CCT Total # of Minutes Spent Total Time Spent with Patient: Total time spent is greater than 50% in coordination of care (as documented) at patient's floor/unit and/or counseling patient: Coding Level of Care Code None Diagnoses Perforation of sigmoid colon due to diverticulitis K57.20
[2020-12-24] MEDS ORDERED: DEXTROSE 10% 1,000 ML IV PRN (09:20)
[2020-12-24] MEDS ORDERED: TPN/PPN CONSULT PHARMACY STA (09:20)
[2020-12-24] MEDS ORDERED: Custom Central Pn 2,000 ML in TPN BAG 0 ML IV SCH (16:00)
--- NOTE | 2020-12-24 17:55 | Billing Data ---
Date of Service December 24, 2020 Coding Level of Care Code 61741 Subseq Hosp Care Lvl 3
[2020-12-25] MEDS: MoRPHine SULFATE PCA 30 MG/30 ML IV PRN ×2 (00:57→15:38)
[2020-12-25] MEDS: PIPERACILLIN/TAZOBACTAM 3.375 GM in DEXTROSE 5% 100 ML IV SCH ×3 (06:13→23:37)
[2020-12-25 06:18] LABS: Basophils # (auto) 0.02 K/uL (0-0.2); Basophils % (auto) 0.2 %; Eosinophils # (auto) 0.14 K/uL (0-0.5); Eosinophils % (auto) 1.1 %; Hematocrit (blood only) 34.5 % (42-52); Immature Granulocytes # (auto) 0.03 K/uL (0.00-0.02); Immature Granulocytes % (auto) 0.2 %; Lymphocytes % (auto) 20.2 %; Mean Corpuscular Hemoglobin 32.2 pg (25-34); Mean Corpuscular Hgb Conc 34.8 g/dL (32-36); Mean Corpuscular Volume 92.5 fL (80-100); Mean Platelet Volume 9.6 fL (7.4-10.4); Monocytes % (auto) 8.9 %; Neutrophils # (auto) 8.57 K/uL (1.4-6.5); Neutrophils % (auto) 69.4 %; Platelet Count 316 K/uL (130-400); RDW Coefficient of Variation 14.9 % (11.5-14.5); RDW Standard Deviation 50.8 fL (36.4-46.3); Red Blood Count 3.73 M/uL (4.7-6.1); White Blood Count 12.36 K/uL (4.8-10.8)
[2020-12-25] MEDS: SODIUM CHLORIDE 0.9% 1000ML 1,000 ML IV SCH (06:18)
--- NOTE | 2020-12-25 07:34 | Hospitalist Progress Note ---
Date of Service December 25, 2020 Assessment & Plan (1) Perforation of sigmoid colon due to diverticulitis: Plan: 55yo male smoker presented to the ED with abdominal pain, found to have diverticulitis with perforation. Currently stable s/p sigmoidectomy and colostomy placement. Sigmoid diverticulitis with perforation s/p open sigmoidectomy, end colostomy Patient with acute-onset abdominal pain, tachycardic on admission, leukocytosis to 18 CT abdomen/pelvis on admission demonstrates findings of acute sigmoid diverticulitis and a small foci of intraperitoneal free air indicating perforation General surgery consulted; initially did not feel patient required urgent intervention; medical management continued 12/22: interval worsening of pain and leukocytosis, repeat imaging shows worsening of inflammation and pneumoperitoneum 12/23: patient underwent diagnostic laparoscopy which was converted to open sigmoidectomy and end colostomy 12/25: POD#2, patient recovering well, pain greatly improved Plan to remove NG tube on 12/25 per surgery recommendations Advance diet as per surgery recommendations Continue zosyn 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 abdominal exams Trend daily CBC, BMP Malnutrition Patient without PO intake since 12/20 Given growing concern for poor wound healing/surgical recovery in the setting of malnutrition, will start TPN PICC line placed, pharmacy consulted for TPN initiation Occlusion of left internal iliac artery CT abdomen/pelvis demonstrates complete thrombosis of the origin of the left i nternal iliac artery Continue anticoagulation with lovenox Infrarenal abdominal aneurysm CT abdomen/pelvis demonstrating 3.5cm infrarenal abdominal aortic aneurysm, 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 No intervention indicated at this time Continue outpatient surveillance Tobacco use 1+ppd smoker for the last 40+ years Nicotine patch reduced from 21mg qd to 7mg qd to promote wound healing Follow up outpatient FEN: NPO, sips and chips allowed, LR @ 125mL/hr Code status: full code DVT ppx: lovenox PT/OT: not indicated Dispo: med/surg Admission and Anticipated Discharge Date Admission Date: December 21, 2020 Supervising Physician Co-Signing Physician Notes I personally examined the patient and verified all roe points of history and exam, discussed case, and agree with decision making with Dr Siu Feeling better, still pain but better. no bowel throughput yet. Vitals noted, appearing somewhat uncomfortable but no significant distress. HEENT normocephalic atraumatic mucous membranes moist. Breathing unlabored no accessory muscle use good effort. No focal neuro deficits at rest. b/l lower Tspine paraspinals high tone/tender/decreased ROM - inhibitory pressure/direct myofascial - improved. pt tolerated well Perforated diverticulitis with sepsis present on admissionnow postop. Appears slowly improving. Continue IV antibiotics. continue TPN since he's already been NPO for several days, and likely slow to improve Tobacco abuse with subsequent vascular diseaseencourage cessation, secondary risk reduction somatic dysfunction - thoracic region - OMT as above DVT prophylaxisLovenox Subjective Patient seen and evaluated at bedside this morning on POD#2 s/p sigmoidectomy with colostomy formation. Patient feels about the same as yesterday, with 4/10 abdominal pain, but this is still a substantial improvement to days prior. Denies fever, chills, nausea, vomiting. Passing flatus but no BM yet. Stable overall. Review of Systems Review of Systems: See HPI Physical Exam Physical Exam: Constitutional: tired-appearing but no acute distress HEENT: NG tube draining brown fluid CV: regular rhythm, no murmur appreciated, extremities well-perfused, no LE edema Resp: CTABL no increased work of breathing GI: soft, nondistended, moderate generalized tenderness without guarding or rebound, ostomy bag in place draining normal-appearing stool, no zak-ostomy erythema or edema, surgical incision c/d/i Neuro: AOx4, no focal neurological deficits appreciated Results & Data Results & Data ([facility]) Vital Signs (Past 12 Hours) Vital Signs Temp Pulse Pulse Resp BP Pulse Ox 12/25/20 07:28 81 12/25/20 02:51 36.9 C 84 16 147/90 H 94 12/24/20 23:01 36.8 C 83 16 160/95 H 92 12/24/20 22:19 86 Resident Activity Tracking Resident Involvement: Resident Care Provided Care Provided: Adult [place] [facility]
[2020-12-25 08:25] LABS: BUN Creatinine Ratio 23.9 (10-20); Calcium 8.8 mg/dl (8.5-10.1); Creatinine Clr Calc Pharmacy 149.5 ml/min; Est GFR (Non-African American) 118.2 ml/min; Magnesium 2.5 mg/dl (1.8-2.4); Potassium 3.1 mmol/L (3.5-5.1)
[2020-12-25] MEDS: NICOTINE 7 MG/24 HR TDSY TD SCH (08:27)
[2020-12-25] MEDS: ENOXAPARIN INJ 40 MG/0.4 ML SYR SQ SCH (08:31)
--- NOTE | 2020-12-25 08:43 | Surgery Progress Note ---
Date of Service December 25, 2020 Assessment & Plan (1) Perforation of sigmoid colon due to diverticulitis: Plan: POD 2 Jessi's WBC 12 cont Zosyn d/c NG ambulate Admission and Anticipated Discharge Date Admission Date: December 21, 2020 Supervising Physician Co-Signing Physician Notes Pnt s&e, labs reviewed, agree with above. POD#2 Christensen's, feeling better. Abd soft, appropriately ttp, ostomy with some edema, some sweat in bag, pink and patent. wbc 12 (19). d/c ng, oobtc, clear liquids later this afternoon if doing well. ambulate. 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, able to void Physical Exam Gastrointestinal (Abdomen): Inspection/Auscultation: + abdomen distended (less), + abdominal surgical incision (dry) and + abdominal surgical drain present (serous, 10 cc) Percussion/Palpation: abdomen soft Results & Data ([facility]) Vital Signs (Past 12 Hours) Vital Signs Temp Pulse Pulse Resp BP Pulse Ox 12/25/20 08:07 36.7 C 82 20 154/83 H 90 12/25/20 07:28 81 12/25/20 02:51 36.9 C 84 16 147/90 H 94 12/24/20 23:01 36.8 C 83 16 160/95 H 92 12/24/20 22:19 86 PG Care Time/CCT Total # of Minutes Spent Total Time Spent with Patient: Total time spent is greater than 50% in coordination of care (as documented) at patient's floor/unit and/or counseling patient: Coding Level of Care Code None Diagnoses Perforation of sigmoid colon due to diverticulitis K57.20
[2020-12-25 08:55] LABS: Phosphorus 1.5 mg/dl (2.5-4.9)
[2020-12-25] MEDS ORDERED: POTASSIUM PHOSPHATE 24 MMOL in SODIUM CHLORIDE 0.9% 500 ML IV ONE (12:30)
[2020-12-25] MEDS ORDERED: Custom Central Pn 2,000 ML in TPN BAG 0 ML IV SCH (16:00)
--- NOTE | 2020-12-25 17:42 | Billing Data ---
Date of Service December 25, 2020 Coding Level of Care Code 52387 Subseq Hosp Care Lvl 3
[2020-12-25] MEDS ORDERED: Nursing to Pharmacy Communication SCH (22:00)
[2020-12-26] MEDS ORDERED: Nursing to Pharmacy Communication SCH (01:30)
[2020-12-26] MEDS: SODIUM CHLORIDE 0.9% 1000ML 1,000 ML IV SCH ×2 (02:13→15:40)
[2020-12-26] MEDS: PIPERACILLIN/TAZOBACTAM 3.375 GM in DEXTROSE 5% 100 ML IV SCH ×3 (06:18→23:28)
[2020-12-26 06:22] LABS: Hematocrit (blood only) 39.9 % (42-52); Hemoglobin 13.4 g/dL (14.0-18.0); Mean Corpuscular Hgb Conc 33.6 g/dL (32-36); Mean Corpuscular Volume 89.5 fL (80-100); Mean Platelet Volume 9.7 fL (7.4-10.4); Platelet Count 363 K/uL (130-400); RDW Coefficient of Variation 14.5 % (11.5-14.5); RDW Standard Deviation 47.9 fL (36.4-46.3); Red Blood Count 4.46 M/uL (4.7-6.1); White Blood Count 14.14 K/uL (4.8-10.8)
--- NOTE | 2020-12-26 06:36 | Hospitalist Progress Note ---
Date of Service December 26, 2020 Assessment & Plan (1) Perforation of sigmoid colon due to diverticulitis: Plan: 55yo male smoker presented to the ED with abdominal pain, found to have diverticulitis with perforation s/p sigmoidectomy and colostomy placement. Sigmoid diverticulitis with perforation s/p open sigmoidectomy, end colostomy Patient with acute-onset abdominal pain, tachycardic on admission, leukocytosis to 18 CT abdomen/pelvis on admission demonstrates findings of acute sigmoid diverticulitis and a small foci of intraperitoneal free air indicating perforation General surgery consulted; initially did not feel patient required urgent intervention; medical management continued 12/22: interval worsening of pain and leukocytosis, repeat imaging shows worsening of inflammation and pneumoperitoneum 12/23: patient underwent diagnostic laparoscopy which was converted to open sigmoidectomy and end colostomy 12/25: NG tube removed 12/26: patient with interval worsening of symptoms, abdomen newly firm and distended; CT a/p findings: 1. Status post interval sigmoidectomy with colostomy left lower quadrant. No postoperative complications are present as described above. 2. There is decreased pneumoperitoneum with no focal fluid collections or abscess. 3. There is evidence for persistent ileus of the small bowel as described above. The presence of partial small bowel obstruction would be less likely. 4. Interval development of complete atelectasis/collapse of the right lower lobe. Decreased left basilar atelectasis. 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 Continue anticoagulation with lovenox Infrarenal abdominal aneurysm CT abdomen/pelvis demonstrating 3.5cm infrarenal abdominal aortic aneurysm, 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 No intervention indicated at this time Continue outpatient surveillance Tobacco use 1+ppd smoker for the last 40+ years Nicotine patch reduced from 21mg qd to 7mg qd to promote wound healing Follow up outpatient FEN: NPO, sips and chips allowed, LR @ 125mL/hr Code status: full code DVT ppx: lovenox PT/OT: not indicated Dispo: med/surg Admission and Anticipated Discharge Date Admission Date: December 21, 2020 Supervising Physician Co-Signing Physician Notes I personally examined the patient and verified all roe points of history and exam, discussed case, and agree with decision making with Dr Siu Was looking and feeling worse, examining worse this morningresident physician repeated CT scanfortunately no worsening signs of infection/dehiscence/etc.unfortunately does appear consistent with ileus. Later whenever we see him together, he is doing reasonably well. He is worried about being able to sleepnoting that he has not slept for 5 minutes since being in the hospital. Notes that his pain is doing better with 2 mg of morphine per dose with the TREE WARDEN. Vitals noted, appearing somewhat uncomfortable but no significant distress. HEENT normocephalic atraumatic mucous membranes moist. Breathing unlabored no accessory muscle use good effort. No focal neuro deficits at rest. Abdomen somewhat distended. Perforated diverticulitis with sepsis present on admissionnow postop. Complicated by postop ileus. Continue pain control, IV antibiotics and TPN. As it relates to pain control and his inability to sleepwe will give 1 additional dose of 4 mg of morphine at bedtime tonight, to hopefully allow him to have better long-lasting pain relief and get some sleep. Tobacco abuse with subsequent vascular diseaseencourage cessation, secondary risk reduction Subjective Patient seen and evaluated at bedside this morning, POD#3. Patient endorses persistent pain slightly worse today compared to yesterday. Patient notes he feels "awful" today, complaining of a new cough today. Endorses severe abdominal pain that is limiting his ability to take a deep breath. Denies nausea or vomiting at this time. Review of Systems Review of Systems: See HPI Physical Exam Physical Exam: Constitutional: tired-appearing, very uncomfortable but no acute distress CV: regular rhythm, no murmur appreciated, extremities well-perfused, no LE edema Resp: very coarse breath sounds present throughout, worse inferiorly, improves with cough, breathing shallow but non-labored GI: firm, moderately distended, mild RUQ, LUQ, LLQ tenderness without guarding or rebound, severe RLQ tenderness with rebound but without guarding, ostomy bag in without surrounding erythema or edema, dressing CDI Neuro: A&O, no focal neurological deficits appreciated Results & Data Results & Data ([facility]) Vital Signs (Past 12 Hours) Vital Signs Temp Pulse Pulse Resp BP Pulse Ox 12/26/20 02:41 36.6 C 78 18 143/87 H 94 12/25/20 23:26 83 12/25/20 23:23 37 C 81 18 139/87 92 12/25/20 19:29 36.7 C 84 14 121/91 88 L Resident Activity Tracking Resident Involvement: Resident Care Provided Care Provided: Adult Hospital Medicine
[2020-12-26 06:45] LABS: Basophils # (auto) 0.05 K/uL (0-0.2); Basophils % (auto) 0.4 %; Eosinophils # (auto) 0.49 K/uL (0-0.5); Eosinophils % (auto) 3.5 %; Immature Granulocytes # (auto) 0.05 K/uL (0.00-0.02); Immature Granulocytes % (auto) 0.4 %; Lymphocytes # (auto) 2.05 K/uL (1.2-3.4); Lymphocytes % (auto) 14.5 %; Monocytes # (auto) 1.57 K/uL (0.11-0.59); Monocytes % (auto) 11.1 %; Neutrophils # (auto) 9.93 K/uL (1.4-6.5); Neutrophils % (auto) 70.1 %
[2020-12-26 06:57] LABS: Albumin Level 2.1 gm/dl (3.4-5.0); BUN Creatinine Ratio 24.4 (10-20); Calcium 8.6 mg/dl (8.5-10.1); Creatinine Clr Calc Pharmacy 120.5 ml/min; Est GFR (African American) 125.4 ml/min; Est GFR (Non-African American) 108.2 ml/min; Magnesium 2.2 mg/dl (1.8-2.4); Potassium 3.2 mmol/L (3.5-5.1)
[2020-12-26 07:02] LABS: Albumin Globulin Ratio 0.5 (0.9-2); Bilirubin,Total 0.4 mg/dl (0.2-1); Globulin 4.6 gm/dl (2.5-4.0); Phosphorus 3.8 mg/dl (2.5-4.9); Total Protein 6.7 gm/dl (6.4-8.2)
[2020-12-26] MEDS: NICOTINE 7 MG/24 HR TDSY TD SCH (08:19)
[2020-12-26] MEDS: ENOXAPARIN INJ 40 MG/0.4 ML SYR SQ SCH (08:22)
--- NOTE | 2020-12-26 10:08 | Surgery Progress Note ---
Date of Service December 26, 2020 Assessment & Plan Admission and Anticipated Discharge Date Admission Date: December 21, 2020 Supervising Physician Co-Signing Physician Notes I personally examined the patient and verified all roe points of history and exam, discussed case, and agree with decision making with Dr Siu Feeling better, still pain but better. no bowel throughput yet. Vitals noted, appearing somewhat uncomfortable but no significant distress. HEENT normocephalic atraumatic mucous membranes moist. Breathing unlabored no accessory muscle use good effort. No focal neuro deficits at rest. b/l lower Tspine paraspinals high tone/tender/decreased ROM - inhibitory pressure/direct myofascial - improved. pt tolerated well Perforated diverticulitis with sepsis present on admissionnow postop. Appears slowly improving. Continue IV antibiotics. continue TPN since he's already been NPO for several days, and likely slow to improve Tobacco abuse with subsequent vascular diseaseencourage cessation, secondary risk reduction somatic dysfunction - thoracic region - OMT as above DVT prophylaxisLovenox 12/26/2020 10:05AM Dr. Kaba F/U S/P Open Sigmoidectomy, End Colostomy with Jessi's Pouch doing better, less abdominal pain, OOB WBC 14,000, K 3.1 correct low K, continue IV antibiotic, repeat labs in morning, will F/U Subjective Patient seen and evaluated at bedside this morning on POD#2 s/p sigmoidectomy with colostomy formation. Patient feels about the same as yesterday, with 4/10 abdominal pain, but this is still a substantial improvement to days prior. Denies fever, chills, nausea, vomiting. Passing flatus but no BM yet. Stable overall. 12/26/2020 10:01AM DR. Kaba F/U S/P Open Sigmoidectomy, End Colostomy with Jessi's Pouch POD 3, pt is doing fine, some abdominal pain, no fever, colostomy is not pass gas or stool yet, Physical Exam Constitutional: WD/WN, vitals as above Eyes: PERRL, conjunctivae normal, anicteric sclerae Neck: trachea midline, no thyromegaly Respiratory: normal respiratory effort, lungs clear to auscultation Gastrointestinal (Abdomen): soft, mild distend, mild tenderness at incision site, no rebound pain, the incision intact, no redness, no drainage, colostomy site pink, no gas in bag, Musculoskeletal: no cyanosis or clubbing, extremities motor strength 5/5 Neurologic: patellar DTR's 2+ bilat, sensation intact Psychiatric: A+Ox3, euthymic affect Results & Data ([facility]) Vital Signs (Past 12 Hours) Vital Signs Temp Pulse Pulse Resp BP Pulse Ox 12/26/20 07:51 36.9 C 77 18 144/79 H 96 12/26/20 02:41 36.6 C 78 18 143/87 H 94 12/25/20 23:26 83 12/25/20 23:23 37 C 81 18 139/87 92 Laboratory Results Abnormal lab results 12/25/20 12/25/20 12/26/20 Range/Units 12:07 23:28 05:32 WBC 14.14 H (4.8-10.8) K/uL RBC 4.46 L (4.7-6.1) M/uL Hgb 13.4 L (14.0-18.0) g/dL Hct 39.9 L (42-52) % RDW Std Deviation 47.9 H (36.4-46.3) fL Neut # (Auto) 9.93 H (1.4-6.5) K/uL Fleming # (Auto) 1.57 H (0.11-0.59) K/uL Immature Gran # (Auto) 0.05 H (0.00-0.02) K/uL Potassium (3.5-5.1) mmol/L BUN/Creatinine Ratio (10-20) Glucose (70-99) mg/dl POC Glucose 107 H 111 H (70-99) mg/dl Albumin (3.4-5.0) gm/dl Globulin (2.5-4.0) gm/dl Albumin/Globulin Ratio (0.9-2) 12/26/20 Range/Units 05:32 WBC (4.8-10.8) K/uL RBC (4.7-6.1) M/uL Hgb (14.0-18.0) g/dL Hct (42-52) % RDW Std Deviation (36.4-46.3) fL Neut # (Auto) (1.4-6.5) K/uL Fleming # (Auto) (0.11-0.59) K/uL Immature Gran # (Auto) (0.00-0.02) K/uL Potassium 3.2 L (3.5-5.1) mmol/L BUN/Creatinine Ratio 24.4 H (10-20) Glucose 108 H (70-99) mg/dl POC Glucose (70-99) mg/dl Albumin 2.1 L (3.4-5.0) gm/dl Globulin 4.6 H (2.5-4.0) gm/dl Albumin/Globulin Ratio 0.5 L (0.9-2)
[2020-12-26] MEDS ORDERED: OPTIRAY 320 100ml IV ONE (11:23)
--- NOTE | 2020-12-26 11:50 | CT Scan Report ---
CT abd pelvis IV con only CLINICAL HISTORY: Status post sigmoidectomy with increasing abdominal pain COMPARISON STUDY: 12/21/2020 CT DOSE: 367.63 mGy.cm TECHNIQUE: Standard CT of the Abdomen and Pelvis was performed with IV contrast. A dose lowering julien hnique was utilized adhering to the principles of ALARA. Contrast Volume: Isovue 320, 89 ml. The patient did not receive oral contrast. FINDINGS: Lung base: Compared to the previous examination, there is now complete right lower lobe atelectasis/c ollapse and evidence of small right pleural effusion. There are atelectasis is also seen at the left lung base which has slightly improved. Abdominal cavity and bowel: There is no evidence for abdominal mass, adenopathy or ascites. Compared to the previous examination, the patient is status post interval sigmoidectomy with colostom y in left lower quadrant. There are again mildly to moderately dilated loops of small bowel throughou t the abdomen and pelvis with fluid levels present. These findings are most characteristic of continu ed ileus. The presence of a partial bowel obstruction is less likely. There is interval decrease in pneumoperitoneum. Surgical drain is present with no evidence for free a bdominal pelvic fluid. There is no evidence for postoperative abscess. There is a normal appendix in the right lower quadrant. Liver: There is homogeneous attenuation of the liver parenchyma. There is no evidence for enhancing m ass lesion. Spleen: There is homogeneous attenuation of the splenic parenchyma. There is no enhancing mass lesion . Pancreas: There is homogeneous attenuation of the pancreatic parenchyma. There is no evidence for mas s lesion or peripancreatic fluid collection. Gall Bladder: The gallbladder is well distended with no evidence for intraluminal calculi, wall thick ening or pericholecystic edema. Adrenal glands: The adrenal glands are normal in size and attenuation. There is no evidence for enhan cing mass lesion. Kidneys: There is homogeneous attenuation of the renal parenchyma bilaterally. There is no evidence f or renal calculus or hydronephrosis. There is no evidence for enhancing mass. Bladder: The bladder is within normal limits with no evidence for focal mass, calculus or diverticulu m. There is mild diffuse thickening of the bladder wall characteristic of chronic bladder outlet obst ruction. : There is no evidence for pelvic mass or adenopathy. There is no evidence for pelvic ascites. Pros perez is again enlarged. Vasculature: There is no evidence for aneurysmal dilatation of the abdominal aorta. Atherosclerotic c alcification is present. Osseous structures: There is no acute osseous pathology. IMPRESSION: 1. Status post interval sigmoidectomy with colostomy left lower quadrant. No postoperative complicati ons are present as described above. 2. There is decreased pneumoperitoneum with no focal fluid collections or abscess. 3. There is evidence for persistent ileus of the small bowel as described above. The presence of part ial small bowel obstruction would be less likely. 4. Interval development of complete atelectasis/collapse of the right lower lobe. Decreased left basi lar atelectasis. 5. Additional nonacute findings are delineated above. ACT 112: Negative or not required by law. Electronically signed by: Leroy Bright M.D. 12/26/2020 11:49 AM
[2020-12-26] MEDS: MoRPHine SULFATE PCA 30 MG/30 ML IV PRN ×2 (14:23→21:32)
[2020-12-26] MEDS ORDERED: Custom Central Pn 2,000 ML in TPN BAG 0 ML IV SCH (16:00)
--- NOTE | 2020-12-26 17:44 | Billing Data ---
Date of Service December 26, 2020 Coding Level of Care Code 42639 Subseq Hosp Care Lvl 3
[2020-12-26] MEDS ORDERED: MoRPHine SULFATE 4 MG/ML 1 ML CARP\\VIAL IV ONE (21:00)
[2020-12-27] MEDS: PIPERACILLIN/TAZOBACTAM 3.375 GM in DEXTROSE 5% 100 ML IV SCH ×3 (06:12→22:29)
--- NOTE | 2020-12-27 07:22 | Hospitalist Progress Note ---
Date of Service December 27, 2020 Assessment & Plan (1) Perforation of sigmoid colon due to diverticulitis: Plan: 55yo male smoker presented to the ED with abdominal pain, found to have diverticulitis with perforation s/p sigmoidectomy and colostomy placement. Sigmoid diverticulitis with perforation s/p open sigmoidectomy, end colostomy Patient with acute-onset abdominal pain, tachycardic on admission, leukocytosis to 18 CT abdomen/pelvis on admission demonstrates findings of acute sigmoid diverticulitis and a small foci of intraperitoneal free air indicating perforation General surgery consulted; initially did not feel patient required urgent intervention; medical management continued 12/22: interval worsening of pain and leukocytosis, repeat imaging shows worsening of inflammation and pneumoperitoneum 12/23: patient underwent diagnostic laparoscopy which was converted to open sigmoidectomy and end colostomy 12/25: NG tube removed 12/26: patient with interval worsening of symptoms, abdomen newly firm and distended; CT a/p findings: 1. Status post interval sigmoidectomy with colostomy left lower quadrant. No postoperative complications are present as described above. 2. There is decreased pneumoperitoneum with no focal fluid collections or abscess. 3. There is evidence for persistent ileus of the small bowel as described above. The presence of partial small bowel obstruction would be less likely. 4. Interval development of complete atelectasis/collapse of the right lower lobe. Decreased left basilar atelectasis. 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 Continue anticoagulation with lovenox Infrarenal abdominal aneurysm CT abdomen/pelvis demonstrating 3.5cm infrarenal abdominal aortic aneurysm, 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 No intervention indicated at this time Continue outpatient surveillance Tobacco use 1+ppd smoker for the last 40+ years Nicotine patch reduced from 21mg qd to 7mg qd to promote wound healing Follow up outpatient FEN: NPO, sips and chips allowed, LR @ 125mL/hr Code status: full code DVT ppx: lovenox PT/OT: not indicated Dispo: med/surg Admission and Anticipated Discharge Date Admission Date: December 21, 2020 Supervising Physician Co-Signing Physician Notes I personally examined the patient and verified all roe points of history and exam, discussed case, and agree with decision making with Dr Siu Was able to get maybe 4 or 5 hours of sleep last night. Still a good bit of pain, is having a little bit of gas in his bag but no bowel movement yet. Ongoing abdominal pain. Vitals noted, appearing somewhat uncomfortable but no significant distress. HEENT normocephalic atraumatic mucous membranes moist. Breathing unlabored no accessory muscle use good effort. No focal neuro deficits at rest. Abdomen somewhat distended. Perforated diverticulitis with sepsis present on admissionnow postop. Complicated by postop ileus. Continue pain control, IV antibiotics and TPN. As it relates to pain control and his inability to sleeplast night's plan of an additional dose of 4 mg of morphine at bedtime worked well for pain relief and sleepwe will do this again tonight (not ordering it is a standing order so that as his pain control as we do not have any excess medication, but definitely can continue to reassess and do on a day to day basis. Tobacco abuse with subsequent vascular diseaseencourage cessation, secondary risk reduction Subjective Patient seen and evaluated at bedside this morning. No acute events overnight. Patient is POD#4 s/p sigmoidectomy and ostomy formation. Patient feels well today - finally got a good night's sleep. Pain is at 3/10 and continues to improve - well-controlled with morphine GREEN PLUMBER set to 2mg q15min. Denies nausea, vomiting, CP, SOB, or other symptoms. Notes he is passing flatus through his ostomy bag. No new concerns at this time. Review of Systems Review of Systems: See HPI Physical Exam Physical Exam: Constitutional: well-appearing, no acute distress CV: regular rhythm, no murmur, no LE edema Resp: mild coarse breath sounds present throughout, worse inferiorly, resolves with cough, breathing non-labored nor shallow GI: firm, mildlly distended, mild RUQ, LUQ, LLQ tenderness without guarding or rebound, moderate RLQ tenderness without rebound or guarding, ostomy bag in place with normal-appearing drainage Skin: skin surrounding ostomy site without erythema or edema, dressing CDI Neuro: alert, oriented, no focal neurological deficits Results & Data Results & Data ([place]) Vital Signs (Past 12 Hours) Vital Signs Temp Pulse Resp BP Pulse Ox 12/27/20 00:00 37.3 C 84 16 116/84 92 12/26/20 20:25 37.2 C 87 16 129/79 92 Resident Activity Tracking Resident Involvement: Resident Care Provided Care Provided: Adult Hospital Medicine
[2020-12-27 08:18] LABS: Hematocrit (blood only) 39.8 % (42-52); Hemoglobin 13.6 g/dL (14.0-18.0); Mean Corpuscular Hemoglobin 30.3 pg (25-34); Mean Corpuscular Hgb Conc 34.2 g/dL (32-36); Mean Corpuscular Volume 88.6 fL (80-100); Mean Platelet Volume 9.8 fL (7.4-10.4); Platelet Count 366 K/uL (130-400); RDW Coefficient of Variation 14.5 % (11.5-14.5); RDW Standard Deviation 46.7 fL (36.4-46.3); Red Blood Count 4.49 M/uL (4.7-6.1); White Blood Count 14.55 K/uL (4.8-10.8)
[2020-12-27] MEDS: MoRPHine SULFATE PCA 30 MG/30 ML IV PRN ×2 (08:27→15:50)
[2020-12-27] MEDS: ENOXAPARIN INJ 40 MG/0.4 ML SYR SQ SCH (08:31)
[2020-12-27] MEDS: NICOTINE 7 MG/24 HR TDSY TD SCH (08:31)
[2020-12-27 08:45] LABS: Basophils % (auto) 0.7 %; Eosinophils # (auto) 0.58 K/uL (0-0.5); Immature Granulocytes # (auto) 0.17 K/uL (0.00-0.02); Immature Granulocytes % (auto) 1.2 %; Lymphocytes # (auto) 2.26 K/uL (1.2-3.4); Lymphocytes % (auto) 15.5 %; Monocytes # (auto) 1.92 K/uL (0.11-0.59); Monocytes % (auto) 13.2 %; Neutrophils # (auto) 9.52 K/uL (1.4-6.5); Neutrophils % (auto) 65.4 %
[2020-12-27 08:46] LABS: BUN Creatinine Ratio 28.1 (10-20); Creatinine Clr Calc Pharmacy 141.7 ml/min; Est GFR (Non-African American) 115.6 ml/min; Magnesium 2.2 mg/dl (1.8-2.4); Potassium 3.6 mmol/L (3.5-5.1)
[2020-12-27 08:48] LABS: Albumin Globulin Ratio 0.4 (0.9-2); Bilirubin,Total 0.7 mg/dl (0.2-1); Globulin 4.5 gm/dl (2.5-4.0); Phosphorus 3.8 mg/dl (2.5-4.9); Total Protein 6.5 gm/dl (6.4-8.2)
[2020-12-27] MEDS ORDERED: Custom Central Pn 2,000 ML in TPN BAG 0 ML IV SCH (16:00)
--- NOTE | 2020-12-27 16:32 | Surgery Progress Note ---
Date of Service December 27, 2020 Assessment & Plan Admission and Anticipated Discharge Date Admission Date: December 21, 2020 Supervising Physician Co-Signing Physician Notes I personally examined the patient and verified all roe points of history and exam, discussed case, and agree with decision making with Dr Siu Was looking and feeling worse, examining worse this morningresident physician repeated CT scanfortunately no worsening signs of infection/dehiscence/etc.unfortunately does appear consistent with ileus. Later whenever we see him together, he is doing reasonably well. He is worried about being able to sleepnoting that he has not slept for 5 minutes since being in the hospital. Notes that his pain is doing better with 2 mg of morphine per dose with the [employer]PH[employer]. Vitals noted, appearing somewhat uncomfortable but no significant distress. HEENT normocephalic atraumatic mucous membranes moist. Breathing unlabored no accessory muscle use good effort. No focal neuro deficits at rest. Abdomen somewhat distended. Perforated diverticulitis with sepsis present on admissionnow postop. Complicated by postop ileus. Continue pain control, IV antibiotics and TPN. As it relates to pain control and his inability to sleepwe will give 1 additional dose of 4 mg of morphine at bedtime tonight, to hopefully allow him to have better long-lasting pain relief and get some sleep. Tobacco abuse with subsequent vascular diseaseencourage cessation, secondary risk reduction 12/27/2020 4:29pm F/U S/P chang's procedure, POD 4 stable, continue iv antibiotic, waiting colostomy working, repeat labs in morning, Subjective Patient seen and evaluated at bedside this morning, POD#3. Patient endorses persistent pain slightly worse today compared to yesterday. Patient notes he feels "awful" today, complaining of a new cough today. Endorses severe abdominal pain that is limiting his ability to take a deep breath. Denies nausea or vomiting at this time. 12/27/2020 4:25 PM pt has some cough cause pt abdominal pain, no nausea, no vomiting, no fever, Physical Exam Constitutional: WD/WN, vitals as above Eyes: PERRL, conjunctivae normal, anicteric sclerae Neck: trachea midline, no thyromegaly Respiratory: normal respiratory effort, lungs clear to auscultation Gastrointestinal (Abdomen): soft, some fluid in colostomy bag, no stool yet, mild tenderness at incision site, no rebound pain, Musculoskeletal: no cyanosis or clubbing, extremities motor strength 5/5 Neurologic: patellar DTR's 2+ bilat, sensation intact Psychiatric: A+Ox3, euthymic affect Results & Data ([facility]) Vital Signs (Past 12 Hours) Vital Signs Temp Pulse Resp BP Pulse Ox 12/27/20 15:20 37 C 93 H 16 118/76 92 12/27/20 12:10 36.9 C 81 16 126/75 92 12/27/20 07:36 37.2 C 85 16 117/67 92 Laboratory Results Abnormal lab results 12/26/20 12/27/20 12/27/20 Range/Units 16:49 00:02 06:04 WBC (4.8-10.8) K/uL RBC (4.7-6.1) M/uL Hgb (14.0-18.0) g/dL Hct (42-52) % RDW Std Deviation (36.4-46.3) fL Neut # (Auto) (1.4-6.5) K/uL Whitfield # (Auto) (0.11-0.59) K/uL Eos # (Auto) (0-0.5) K/uL Immature Gran # (Auto) (0.00-0.02) K/uL Creatinine (0.6-1.4) mg/dl BUN/Creatinine Ratio (10-20) Glucose (70-99) mg/dl POC Glucose 109 H 101 H 111 H (70-99) mg/dl AST (15-37) U/L Albumin (3.4-5.0) gm/dl Globulin (2.5-4.0) gm/dl Albumin/Globulin Ratio (0.9-2) 12/27/20 12/27/20 12/27/20 Range/Units 07:57 07:57 12:08 WBC 14.55 H (4.8-10.8) K/uL RBC 4.49 L (4.7-6.1) M/uL Hgb 13.6 L (14.0-18.0) g/dL Hct 39.8 L (42-52) % RDW Std Deviation 46.7 H (36.4-46.3) fL Neut # (Auto) 9.52 H (1.4-6.5) K/uL Whitfield # (Auto) 1.92 H (0.11-0.59) K/uL Eos # (Auto) 0.58 H (0-0.5) K/uL Immature Gran # (Auto) 0.17 H (0.00-0.02) K/uL Creatinine 0.57 L (0.6-1.4) mg/dl BUN/Creatinine Ratio 28.1 H (10-20) Glucose 110 H (70-99) mg/dl POC Glucose 101 H (70-99) mg/dl AST 67 H (15-37) U/L Albumin 2.0 L (3.4-5.0) gm/dl Globulin 4.5 H (2.5-4.0) gm/dl Albumin/Globulin Ratio 0.4 L (0.9-2)
[2020-12-27] MEDS ORDERED: diphenhydrAMINE Capsule 25 MG CAP PO STA (16:47)
--- NOTE | 2020-12-27 19:10 | Billing Data ---
Date of Service December 27, 2020 Coding Level of Care Code 38439 Subseq Hosp Care Lvl 3
[2020-12-28] MEDS: SODIUM CHLORIDE 0.9% 1000ML 1,000 ML IV SCH (00:06)
[2020-12-28] MEDS: MoRPHine SULFATE PCA 30 MG/30 ML IV PRN ×2 (01:52→16:45)
[2020-12-28 06:01] LABS: Hematocrit (blood only) 38.3 % (42-52); Mean Corpuscular Hgb Conc 33.9 g/dL (32-36); Mean Corpuscular Volume 88.5 fL (80-100); Mean Platelet Volume 10.1 fL (7.4-10.4); Platelet Count 388 K/uL (130-400); RDW Coefficient of Variation 14.4 % (11.5-14.5); RDW Standard Deviation 46.9 fL (36.4-46.3); Red Blood Count 4.33 M/uL (4.7-6.1); White Blood Count 15.03 K/uL (4.8-10.8)
[2020-12-28 06:34] LABS: BUN Creatinine Ratio 27.4 (10-20); Calcium 9.1 mg/dl (8.5-10.1); Creatinine Clr Calc Pharmacy 134.6 ml/min; Est GFR (African American) 131.2 ml/min; Est GFR (Non-African American) 113.2 ml/min; Magnesium 2.3 mg/dl (1.8-2.4); Phosphorus 3.4 mg/dl (2.5-4.9)
[2020-12-28] MEDS: PIPERACILLIN/TAZOBACTAM 3.375 GM in DEXTROSE 5% 100 ML IV SCH ×3 (06:34→23:22)
[2020-12-28 06:42] LABS: Basophils # (auto) 0.09 K/uL (0-0.2); Basophils % (auto) 0.6 %; Eosinophils # (auto) 0.67 K/uL (0-0.5); Eosinophils % (auto) 4.5 %; Immature Granulocytes # (auto) 0.24 K/uL (0.00-0.02); Immature Granulocytes % (auto) 1.6 %; Lymphocytes # (auto) 2.97 K/uL (1.2-3.4); Lymphocytes % (auto) 19.8 %; Monocytes # (auto) 2.39 K/uL (0.11-0.59); Monocytes % (auto) 15.9 %; Neutrophils # (auto) 8.67 K/uL (1.4-6.5); Neutrophils % (auto) 57.6 %
--- NOTE | 2020-12-28 07:02 | Hospitalist Progress Note ---
Date of Service December 28, 2020 Assessment & Plan (1) Perforation of sigmoid colon due to diverticulitis: Plan: 55yo male smoker presented to the ED with abdominal pain, found to have diverticulitis with perforation s/p sigmoidectomy and colostomy placement. POD5. Stable Sigmoid diverticulitis with perforation s/p open sigmoidectomy, end colostomy Acute-onset abdominal pain, tachycardic on admission, leukocytosis to 18 CT abdomen/pelvis on admission demonstrates findings of acute sigmoid diverticulitis and a small foci of intraperitoneal free air indicating perforation 12/23: patient underwent diagnostic laparoscopy which was converted to open sigmoidectomy and end colostomy 12/25: NG tube removed 12/26: patient with interval worsening of symptoms, abdomen newly firm and distended; CT a/p findings: 1. persistent ileus of the small bowel as described 2. Interval development of complete atelectasis/collapse of the right lower lobe. Decreased left basilar atelectasis. 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 No basal/continuous. 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 To further evaluate. 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 advanced to clears. TPN Code status: full code DVT ppx: lovenox Dispo: med/surg Admission and Anticipated Discharge Date Admission Date: December 21, 2020 Supervising Physician Co-Signing Physician Notes Resident Physician Supervision Note: I independently interviewed and examined the patient and verified the roe history and physical, reviewed labs and image studies and agree with resident Dr. Grossman findings and care plan. Subjective Mild nausea and pain (periumb), improved from yest. 2.5/10 severity. Mild bloating. Mild gas in ostomy. No urinary sxs. No f/c, sob. Last BM 1 wk ago. Ostomy w/o output currently. Per patient, past few days, did fill w/ liquid. Per nursing, ostomy bag coming off, wound care nurse consulted and has not come by yet. Current smoker, no home O2 req. + several days of brown/black sputum. Review of Systems Review of Systems: All systems reviewed & are unremarkable except as noted in HPI & below Constitutional: Denies fever, chills Eyes: Denies blurry vision, vision changes ENT: Denies sore throat, sinus pain Cardiovascular: Denies chest pain, palpitations Respiratory: Denies shortness of breath Gastrointestinal: See HPI. Genitourinary: Denies urinary symptoms including dysuria Musculoskeletal: Denies weakness, muscle aches/pain, joint aches/pain Neurological: Denies headache, numbness, tingling, focal weakness. Mild MARIO yesterday, resolved. Physical Exam Physical Exam: General: Grossly A&O. NAD. Cooperative. HEENT: Atraumatic, normocephalic. EOMI Pulm: + mild rhonchi bilat anteriorly. No respiratory distress. Wearing end tidal co2 monitor. Cardiac: RRR, -mrg. Abdominal: Slightly bloated on palpation. Mild TTP diffusely to light palpation. JG drain w/ small amount of serous drainage. Midline vertical abd incision nonerythematous. Ostomy at L abd w/o output. Nursing applying dressing. Results & Data Results & Data ([facility]) Vital Signs (Past 12 Hours) Vital Signs vitals appropriate. 93-95 on RA. Temp Pulse Resp BP BP Pulse Ox 12/28/20 04:35 37.1 C 71 20 105/67 95 12/27/20 23:55 37.1 C 71 24 108/72 93 12/27/20 19:28 37.4 C 70 16 110/64 94 Temp Pulse Resp BP Pulse Ox 36.9 C 78 18 116/76 94 12/28/20 07:44 12/28/20 07:44 12/28/20 07:44 12/28/20 07:44 12/28/20 07:44 Laboratory Results wbc 14s->15.03. Hb stable 13.0. Na 140->137->135. K 4.0 Cr 0.6. 12/[address] Status post interval sigmoidectomy with colostomy left lower quadrant. 12/28/20 05:20 12/28/20 05:20 persistent ileus of small bowel. Resident Activity Tracking Resident Involvement: Resident Care Provided Care Provided: Adult [facility] Medicine
--- NOTE | 2020-12-28 08:12 | Surgery Progress Note ---
Date of Service December 28, 2020 Assessment & Plan (1) Perforation of sigmoid colon due to diverticulitis: Plan: POD 5 Jessi's WBC 15, CT 12/26 no fluid collections/abscess cont Zosyn start on clears Admission and Anticipated Discharge Date Admission Date: December 21, 2020 Supervising Physician Co-Signing Physician Notes Pnt S&E, weekend events noted, CT personally reviewed, agree with above. POD#5 Christensen's. Increased pain and wbc over weekend, CT with ileus and atelectasis, no abscess or complication. Some air in bag, feeling better. Started on clears this morning. On exam afvss, nad, aaox3. Abd with moderate distention, incision with dottie with no e/o infection. Ostomy pink, patent (digitized), productive of gas but no stool. wbc 15. continue clears, ambulation, oobtc, IS. await complete return of bowel function, continue abx. 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 less Physical Exam Gastrointestinal (Abdomen): Inspection/Auscultation: + abdominal surgical incision (dry, no erythema); abdomen not distended Percussion/Palpation: abdomen soft air in pouch Results & Data ([facility]) Vital Signs (Past 12 Hours) Vital Signs Temp Pulse Resp BP BP Pulse Ox 12/28/20 07:44 36.9 C 78 18 116/76 94 12/28/20 04:35 37.1 C 71 20 105/67 95 12/27/20 23:55 37.1 C 71 24 108/72 93 PG Care Time/CCT Total # of Minutes Spent Total Time Spent with Patient: Total time spent is greater than 50% in coordination of care (as documented) at patient's floor/unit and/or counseling patient: Coding Level of Care Code None Diagnoses Perforation of sigmoid colon due to diverticulitis K57.20
[2020-12-28] MEDS: ENOXAPARIN INJ 40 MG/0.4 ML SYR SQ SCH (08:55)
[2020-12-28] MEDS: NICOTINE 7 MG/24 HR TDSY TD SCH (08:56)
--- NOTE | 2020-12-28 09:26 | Pharmacy Report ---
PHA: Parenteral Nutrition Con - Date of Service December 28, 2020 - Scope Pharmacy was consulted on 12/24/20 to manage parenteral nutrition orders for this patient. - Subjective The patient is currently on day #5 of central parenteral nutrition for prolonged NPO status. - Objective Height: 5 ft 8 in Weight: 76.8 kg Diet: Clear Liquid Intake & Output (24hrs):: Intake & Output 12/26/20 12/27/20 12/28/20 12/29/20 06:59 06:59 06:59 06:59 Intake Total 2848.035 / 2848.035 2845.5 / 2845.5 2769.613 / 2769.613 Output Total 1825 / 1825 1535 / 1535 2225 / 2225 325 / 325 Balance 1023.035 / 9873.957 2860.5 / 1310.5 544.613 / 544.613 -325 / -325 Weight 77.6 kg 77.3 kg 76.8 kg Laboratory Data (Last 24 Hr):: 12/28/20 05:20 Sodium 135 L Potassium 4.0 Chloride 102 Carbon Dioxide 26 BUN 17 Creatinine 0.60 Glucose 103 H Calcium 9.1 Phosphorus 3.4 Magnesium 2.3 Nutrition Assessment:: Please refer to the Notes section of the EMR for the most recent production estimator note. - Assessment * Davon is on day #5 of TPN secondary to prolonged NPO status for bowel rest following open sigmoidectomy and end colostomy with Jessi's Pouch. * Patient has tolerated TPN well. NG tube has been discontinued. Minimal output from DALE drain yesterday. Advanced to clear liquid diet today. Depending on how patient tolerates clears, may be able to start tapering TPN over the next few days. * Labs all within normal limits. - Plan For day #5 of TPN administration, the following will be ordered: Macronutrients Amino acids 125 grams/day Dextrose 250 grams/day Lipids 50 grams/day Micronutrients Sodium phosphate 24 MMol Sodium chloride 80 mEq Sodium acetate 20 mEq Potassium phosphate 15 mMol Potassium acetate 50 mEq Multivitamins 10 mL Trace Elements 1 mL Thiamine 100 mg Total volume 2000 mL to be infused over 24 hrs will provide 1900 kcal/day Labs, as indicated, will be ordered per protocol Pharmacy will continue to follow and adjust parenteral nutrition orders on a daily basis. Thank you for allowing us to participate in the care of this patient.
[2020-12-28] MEDS ORDERED: Custom Central Pn 2,000 ML in TPN BAG 0 ML IV SCH (16:00)
[2020-12-28] MEDS ORDERED: MoRPHine SULFATE 4 MG/ML 1 ML CARP\\VIAL IV ONE (21:00)
[2020-12-29] MEDS: SODIUM CHLORIDE 0.9% 1000ML 1,000 ML IV SCH (02:02)
--- NOTE | 2020-12-29 06:53 | Hospitalist Progress Note ---
Date of Service December 29, 2020 Assessment & Plan (1) Perforation of sigmoid colon due to diverticulitis: Plan: 55yo male smoker presented to the ED with abdominal pain, found to have diverticulitis with perforation s/p sigmoidectomy and colostomy placement. POD6. Stable Sigmoid diverticulitis with perforation s/p open sigmoidectomy, end colostomy Acute-onset abdominal pain, tachycardic on admission, leukocytosis to 18 CT abdomen/pelvis on admission demonstrates findings of acute sigmoid diverticulitis and a small foci of intraperitoneal free air indicating perforation 12/23: patient underwent diagnostic laparoscopy which was converted to open sigmoidectomy and end colostomy NG removed. continuing to do better. 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 No basal/continuous. - discontinued CHIEF DEVELOPMENT OFFICER on 12/29. Transitioned to oxycodone 5mg PO q4h prn for pain. oxycodone 10mg q4h prn for severe pain. 2mg IV morphine q3h prn for breakthrough pain. Incentive spirometry TPN - per pharmacy Transaminitis: Trend CMP. 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 Outpatient f/u. - Check arterial doppler. 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 advanced to fulls. Continue TPN for now. Code status: full code DVT ppx: lovenox Dispo: med/surg Admission and Anticipated Discharge Date Admission Date: December 21, 2020 Supervising Physician Co-Signing Physician Notes Resident Physician Supervision Note: I independently interviewed and examined the patient and verified the roe histor y and physical, reviewed labs and image studies and agree with resident Dr. Grossman findings and care plan. Subjective Overall, feeling pretty good. His pain is a 2.5/10, dull, constant, periumbilical, unchanged from yesterday. He is passing gas in ostomy. Not burping. Denies N/V. He is tolerating clear liquid diet and is currently eating jello. He has been ambulating. Review of Systems Review of Systems: Constitutional: Denies fever, chills Eyes: Denies blurry vision, vision changes Cardiovascular: Denies chest pain, palpitations Respiratory: Denies shortness of breath Gastrointestinal: See HPI. Genitourinary: Denies urinary symptoms including dysuria Musculoskeletal: Denies weakness, muscle aches/pain, joint aches/pain Neurological: Denies headache, numbness, tingling, focal weakness Physical Exam Physical Exam: General: Grossly A&O. NAD. Cooperative. HEENT: Atraumatic, normocephalic. EOMI Pulm: CTAB bilaterally. No respiratory distress. Wearing end tidal co2 monitor. Cardiac: RRR, -mrg. Abdominal: Nontender to light palpation. Hypoactive BS. Clean dressing over mid abd. Ostomy at L abd w/o output w/ slight hernia noted at ostomy opening noted. Ostomy bag is empty. Results & Data Results & Data ([facility]) Vital Signs (Past 12 Hours) Vital Signs normal vitals. 93 on RA. Temp Pulse Resp BP Pulse Ox 12/29/20 03:17 37.0 C 74 18 117/77 93 12/28/20 22:50 36.5 C 77 18 124/80 93 12/28/20 19:14 37.3 C 86 16 138/88 93 Temp Pulse Resp BP Pulse Ox 37.0 C 77 18 115/74 94 12/29/20 07:42 12/29/20 07:42 12/29/20 07:42 12/29/20 07:42 12/29/20 07:42 Laboratory Results wbc 14.55->15.03->14.07. Hb stable 13.7. plts 388->498H. Na 137->135->134. CBC w/ diff noted. ast 77 alt 132 alk phos 229. mild new elevations. 12/29/20 09:00 12/29/20 09:00 Resident Activity Tracking Resident Involvement: Resident Care Provided Care Provided: Adult [facility] Medicine
[2020-12-29] MEDS: MoRPHine SULFATE PCA 30 MG/30 ML IV PRN (07:15)
[2020-12-29] MEDS: PIPERACILLIN/TAZOBACTAM 3.375 GM in DEXTROSE 5% 100 ML IV SCH ×3 (07:37→22:52)
[2020-12-29] MEDS: ENOXAPARIN INJ 40 MG/0.4 ML SYR SQ SCH (07:37)
[2020-12-29] MEDS: NICOTINE 7 MG/24 HR TDSY TD SCH (07:38)
--- NOTE | 2020-12-29 07:50 | Surgery Progress Note ---
Date of Service December 29, 2020 Assessment & Plan (1) Perforation of sigmoid colon due to diverticulitis: Plan: POD#6 sigmoidectomy and chang's AM labs pending. VSS/afebrile Feeling well, tolerating clears There is some gas in the ostomy bag, awaiting full return of bowel function prior to advancing diet Discussed DRY HEAT CABINET ATTENDANT use with patient, can consider transition off to prn IV meds within next 24 hours Continue ambulation and pulmonary toilet Admission and Anticipated Discharge Date Admission Date: December 21, 2020 Supervising Physician Co-Signing Physician Notes pnt S&E, agree with above. POD#6 Christensen's. Air in bag, abdominal pain improved, tolerated clears. afvss, incision w/o infection, ostomy pink, patent, productive of gas, no stool. wbc 14. advance to fulls, continue abx, d/c drain tomorrow. trend wbc. d/c hourly caregiver, oral pain meds with iv breakthrough. Subjective Patient feeling okay this AM. He rates his pain about 3/10, worse when coughing. He says he is ambulating. Physical Exam Physical Exam: awake/alert Gastrointestinal (Abdomen): Inspection/Auscultation: + abdominal surgical incision (c/d/i, no signs of infection. ); abdomen not distended Percussion/Palpation: abdomen soft; abdomen nontender + ostomy, pink/red stoma, gas in bag Results & Data ([facility]) Vital Signs (Past 12 Hours) Vital Signs Temp Pulse Pulse Resp BP Pulse Ox 12/29/20 07:42 37.0 C 77 18 115/74 94 12/29/20 03:17 37.0 C 74 18 117/77 93 12/28/20 22:50 36.5 C 77 18 124/80 93 PG Care Time/CCT Total # of Minutes Spent Total Time Spent with Patient: Total time spent is greater than 50% in coordination of care (as documented) at patient's floor/unit and/or counseling patient: Coding Level of Care Code None Diagnoses Perforation of sigmoid colon due to diverticulitis K57.20
[2020-12-29 09:17] LABS: Hematocrit (blood only) 40.6 % (42-52); Hemoglobin 13.7 g/dL (14.0-18.0); Mean Corpuscular Hemoglobin 30.2 pg (25-34); Mean Corpuscular Volume 89.4 fL (80-100); Platelet Count 498 K/uL (130-400); RDW Coefficient of Variation 14.5 % (11.5-14.5); RDW Standard Deviation 47.4 fL (36.4-46.3); Red Blood Count 4.54 M/uL (4.7-6.1); White Blood Count 14.07 K/uL (4.8-10.8)
[2020-12-29 09:21] LABS: Mean Corpuscular Hgb Conc 33.7 g/dL (32-36)
[2020-12-29 09:39] LABS: Albumin Level 2.3 gm/dl (3.4-5.0); BUN Creatinine Ratio 21.5 (10-20); Calcium 8.9 mg/dl (8.5-10.1); Creatinine Clr Calc Pharmacy 112.2 ml/min; Est GFR (African American) 121.7 ml/min; Magnesium 2.5 mg/dl (1.8-2.4); Potassium 4.1 mmol/L (3.5-5.1)
[2020-12-29 09:42] LABS: Albumin Globulin Ratio 0.5 (0.9-2); Bilirubin,Total 0.8 mg/dl (0.2-1); Globulin 5.1 gm/dl (2.5-4.0); Phosphorus 3.3 mg/dl (2.5-4.9); Total Protein 7.4 gm/dl (6.4-8.2)
[2020-12-29 09:44] LABS: ALC (manual) 3.01 K/uL (1.2-3.4); ANC (manual) 8.78 K/uL (1.4-6.5); Eosinophils # (manual) 0.72 K/uL (0-0.5); Eosinophils % (manual) 5.1 %; Lymphocytes # (manual) 3.01 K/uL (1.2-3.4); Lymphocytes % (manual) 21.4 %; Monocytes # (manual) 1.56 K/uL (0.11-0.59); Monocytes % (manual) 11.1 %; Neutrophils # (manual) 8.78 K/uL (1.4-6.5); Neutrophils % (manual) 62.4 %; RBC Morphology Unremarkable
[2020-12-29] MEDS ORDERED: oxyCODONE HCL IR 5 MG TAB (IMMEDIATE RELEASE) PO PRN (13:20)
--- NOTE | 2020-12-29 14:06 | Pharmacy Report ---
PHA: Parenteral Nutrition Con - Date of Service December 29, 2020 - Scope Pharmacy was consulted on 12/24/20 to manage parenteral nutrition orders for this patient. - Subjective The patient is currently on day #6 of central parenteral nutrition for prolonged NPO status. - Objective Height: 5 ft 8 in Weight: 76.6 kg Diet: Full Liquid Intake & Output (24hrs):: Intake & Output 12/27/20 12/28/20 12/29/20 12/30/20 06:59 06:59 06:59 06:59 Intake Total 2845.5 / 2845.5 2769.613 / 2769.613 2699.75 / 2699.75 321.5 / 321.5 Output Total 1535 / 1535 2225 / 2225 4035 / 4035 1125 / 1125 Balance 1310.5 / 1310.5 544.613 / 544.613 -1335.25 / -1335.25 -803.5 / -803.5 Weight 77.3 kg 76.8 kg 76.6 kg Laboratory Data (Last 24 Hr):: 12/29/20 12/29/20 07:20 09:00 Sodium Cancelled 134 L Potassium Cancelled 4.1 Chloride Cancelled 102 Carbon Dioxide Cancelled 25 BUN Cancelled 15 Creatinine Cancelled 0.72 Glucose Cancelled 119 H Calcium Cancelled 8.9 Phosphorus Cancelled 3.3 Magnesium Cancelled 2.5 H Total Bilirubin Cancelled 0.8 AST Cancelled 77 H ALT Cancelled 132 H Alkaline Phosphatase Cancelled 229 H Albumin Cancelled 2.3 L Nutrition Assessment:: Please refer to the Notes section of the EMR for the most recent rail filler note. - Assessment * Davon is on day #6 of TPN secondary to prolonged NPO status for bowel rest following open sigmoidectomy and end colostomy with Jessi's Pouch. * Diet has been advanced to full liquid today and will continue to be advanced as long as bowel function continues to return to normal. * LFTs were 2x ULN today. Discussed with Registered Dietitian and ADRIENNE from general surgery. Plan to reduce macronutrients to 75% of goal today and continue tapering TPN over the next few days as PO intake improves. * Slight hyponatremia, hyperglycemia and hypermagnesemia today. All other labs WNL. * Will increase Sodium content in bag today via chloride and acetate * Hyperglycemia should improve with reduction in dextrose. * Magnesium removed from the bag yesterday. - Plan For day #6 of TPN administration, the following will be ordered: Macronutrients Amino acids 95 grams/day Dextrose 175 grams/day Lipids 35 grams/day Micronutrients Sodium phosphate 24 MMol Sodium chloride 100 mEq Sodium acetate 40 mEq Potassium phosphate 15 mMol Potassium acetate 50 mEq Multivitamins 10 mL Trace Elements 1 mL Thiamine 100 mg Total volume 2000 mL to be infused over 24 hrs will provide 1360 kcal/day Labs, as indicated, will be ordered per protocol Pharmacy will continue to follow and adjust parenteral nutrition orders on a daily basis. Thank you for allowing us to participate in the care of this patient.
[2020-12-29] MEDS ORDERED: Custom Central Pn 2,000 ML in TPN BAG 0 ML IV SCH (16:00)
[2020-12-29] MEDS: oxyCODONE HCL IR 5 MG TAB (IMMEDIATE RELEASE) PO PRN (19:28)
[2020-12-29] MEDS: MoRPHine SULFATE 2 MG/ML CARP IV PRN (22:49)
[2020-12-30] MEDS: oxyCODONE HCL IR 5 MG TAB (IMMEDIATE RELEASE) PO PRN ×4 (03:00→21:21)
[2020-12-30] MEDS: PIPERACILLIN/TAZOBACTAM 3.375 GM in DEXTROSE 5% 100 ML IV SCH ×3 (05:52→22:39)
--- NOTE | 2020-12-30 07:20 | Hospitalist Progress Note ---
Date of Service December 30, 2020 Assessment & Plan (1) Perforation of sigmoid colon due to diverticulitis: Plan: 55yo male smoker presented to the ED with abdominal pain, found to have diverticulitis with perforation s/p sigmoidectomy and colostomy placement. POD7. Stable Sigmoid diverticulitis with perforation s/p open sigmoidectomy, end colostomy Acute-onset abdominal pain, tachycardic on admission, leukocytosis to 18, CT with sigmoid diverticulitis and perforation. 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 - Arterial doppler - Some degree of stenosis of common femoral arteries. Borderline ABIs in the DP arteries. - Will need to start statin and antiplatelet - to be addressed as outpatient. 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 Continue outpatient surveillance Small right pleural effusion with right lung base consolidation. Follow clinically. Asymptomatic. Tobacco use 1+ppd smoker for the last 40+ years. Nicotine patch reduced from 21mg qd to 7mg qd to promote wound healing. Follow up outpatient FEN: Full liquid diet Code status: full code DVT ppx: lovenox SQ Dispo: med/surg (2) Lung consolidation: Admission and Anticipated Discharge Date Admission Date: December 21, 2020 Supervising Physician Co-Signing Physician Notes Resident Physician Supervision Note: I independently interviewed and examined the patient and verified the roe history and physical, reviewed labs and image studies and agree with resident Dr. Grossman findings and care plan. Subjective Tolerating small amount of full diet. No V Mild N. Abd pain was worse last night, milder this AM. + flatus in ostomy bag. Review of Systems Review of Systems: Constitutional: Denies fever, chills Eyes: Denies blurry vision, vision changes Cardiovascular: Denies chest pain, palpitations Respiratory: Denies shortness of breath Gastrointestinal: See HPI. Genitourinary: Denies urinary symptoms including dysuria Musculoskeletal: Denies weakness, muscle aches/pain, joint aches/pain Neurological: Denies headache, numbness, tingling, focal weakness Physical Exam Physical Exam: General: Grossly A&O. NAD. Cooperative. HEENT: Atraumatic, normocephalic. EOMI Pulm: CTAB bilaterally anteriorly. No respiratory distress. Wearing end tidal co2 monitor. Cardiac: RRR, -mrg. Abdominal: Very mild ttp to light palpation. Clean dressing over mid abd. Ostomy at L abd w/ small amount of liquid stool. DALE drain w/ small blot and small amount of ss fluid. Results & Data Results & Data ([facility]) Vital Signs (Past 12 Hours) Vital Signs vitals stable Temp Pulse Resp BP Pulse Ox 12/29/20 22:02 37.1 C 77 18 120/76 94 Laboratory Results cbc stable. wbc 14s-15s x several days. Plts 480H. Na 133. Ast 78 Alt 157 Alk phos 273 stable. 12/30/20 08:08 12/30/20 08:08 Diagnostic Findings Duplex Scan Lower Extremity Artery 12/30/20 08:50 ULTRASOUND BILATERAL LOWER EXTREMITY ARTERIAL; ANKLE-BRACHIAL INDICES CLINICAL HISTORY: Pelvic arterial occlusion seen by CT. COMPARISON STUDY: Abdominal CT dated 12/21/2020. TECHNIQUE: Real-time grayscale and color Doppler sonography of the arteries of the right and left lower extremity is performed from the inguinal crease to the foot. Ankle-brachial indices were evaluated. FINDINGS: Ankle-brachial indices: Right brachial pressure measures 119 and left brachial pressure measures 131. Pressures in the right dorsalis pedis measure 125 for an VIC of 0.95, and pressures in the right posterior tibial artery measure 130 for an VIC of 0.99. Pressures in the left dorsalis pedis measure 123 for an VIC of 0.94 and pressures in the left posterior tibial artery measure 138 for an VIC of 1.05. Right lower extremity: Atherosclerotic plaque and irregularity seen throughout the arteries of the right lower extremity. Imaged portions of the external iliac artery are patent with velocities measuring up to 187 cm/s. There are triphasic waveforms in the common femoral artery with velocities measuring up to 229 cm/s. The profunda femoris artery is patent with velocities measuring up to 66 cm/s. Triphasic waveforms are seen throughout the superficial femoral and popliteal arteries. Velocities in the superficial femoral artery measure up to 128 cm/s and velocities in the popliteal artery measure up to 76 cm/s. There is three- vessel runoff to the foot. Triphasic waveforms are maintained in the calf arteries. Velocities in the calf arteries measure up to 98 cm/s. The dorsalis pedis is patent with velocities measuring up to 66 cm/s. Left lower extremity: Atherosclerotic plaque and irregularity is seen throughout the arteries of the left lower extremity. Imaged portions of the left external iliac artery are patent with velocities measuring up to 161 cm/s. Triphasic waveforms are maintained in the common femoral artery with velocities measuring up to 226 cm/s. The profunda femoris artery is patent with velocities measuring up to 77 cm/s. Triphasic waveforms are seen throughout the superficial femoral and popliteal arteries. Velocities in the superficial femoral artery measure up to 102 cm/s and velocities in the popliteal artery measure up to 81 cm/s. There is three-vessel runoff to the foot. Triphasic waveforms are maintained in the calf vessels. Velocities in the calf arteries measure up to 76 cm/s. The dorsalis pedis is patent with velocities measuring up to 75 cm/s. IMPRESSION: 1. There are focally elevated velocities within the common femoral artery bilaterally suggesting some degree of stenosis. 2. No focal vessel occlusion is seen throughout the arteries of the right or left lower extremity. 3. Ankle brachial indices as above. Dictated: 12/30/2020 8:28 AM Transcribed: 12/30/2020 8:47 AM Sofiya [id number] [email or web address] Electronically signed by: Ramón De La Cruz M.D. 12/30/2020 8:55 AM Chest X-Ray 12/30/20 09:08 XR chest 1V not portable HISTORY: 55 years-old Male eval for WBC acute sepsis COMPARISON: KUB of same day, CT abdomen and pelvis 12/26/2020 TECHNIQUE: Portable AP view the chest FINDINGS: Right-sided PICC distal tip projects over the right atrium. Cardiac silhouette is normal in size. No pneumothorax. Small right pleural effusion with mild right basilar opacities. Linear subsegmental atelectasis/scarring of the lateral left midlung. Bones appear intact. IMPRESSION: 1. Small right pleural effusion with right lung base consolidation suspicious for pneumonia. 2. Satisfactory positioning of the right-sided PICC. ACT 112: Negative or not required by law. The above report was generated using voice recognition software. It may contain grammatical, syntax or spelling errors. Electronically signed by: Steve Candelario M.D. 12/30/2020 10:45 AM KUB X-Ray 12/30/20 09:08 KUB HISTORY: Postop. Elevated white blood cell count. s/p sigmoid/hartmanns COMPARISON: Abdomen and pelvis CT 12/26/2020. FINDINGS: There again noted midline skin dottie with a percutaneous drain terminating in the left side of the abdomen. This is unchanged compared the prior study. There is a left lower quadrant colostomy noted. Borderline dilated gas-filled loops of small bowel within the right side the abdomen and colon have slightly improved. Findings suggest a resolving postoperative ileus. No renal calculi. No ureteral calculi. No pneumoperitoneum or pneumatosis. IMPRESSION: 1. Slight improvement in the borderline dilated gas-filled loops of large and small bowel suggesting a resolving postoperative ileus. 2. Postoperative changes as described above. ACT 112: Negative or not required by law. Electronically signed by: Raffaele Kasper M.D. 12/30/2020 11:32 AM Resident Activity Tracking Resident Involvement: Resident Care Provided Care Provided: Adult [facility]
[2020-12-30] MEDS: ENOXAPARIN INJ 40 MG/0.4 ML SYR SQ SCH (08:09)
[2020-12-30] MEDS: NICOTINE 7 MG/24 HR TDSY TD SCH (08:09)
[2020-12-30 08:36] LABS: Hemoglobin 13.9 g/dL (14.0-18.0); Mean Corpuscular Hemoglobin 30.1 pg (25-34); Mean Corpuscular Hgb Conc 33.9 g/dL (32-36); Mean Corpuscular Volume 88.7 fL (80-100); Mean Platelet Volume 10.1 fL (7.4-10.4); Platelet Count 480 K/uL (130-400); RDW Coefficient of Variation 14.5 % (11.5-14.5); Red Blood Count 4.62 M/uL (4.7-6.1); White Blood Count 15.66 K/uL (4.8-10.8)
--- NOTE | 2020-12-30 08:55 | Surgery Progress Note ---
Date of Service December 30, 2020 Assessment & Plan (1) Perforation of sigmoid colon due to diverticulitis: Plan: POD#7 sigmoidectomy and chang's -WBC 15 today from 14. Afebrile. VSS. Surgical incision c/d/i. -Ostomy has + stool/gas in the bag -Was advanced to full liquids yesterday... he endorses some nausea this AM and has a tray of clears for bfast. Would continue fulls for now, may consider advancing to low fiber later if nausea improves and pending KUB results -DALE drain serosang., may consider removing today -Will order CXR and KUB for further evaluation of WBC and ?ileus Admission and Anticipated Discharge Date Admission Date: December 21, 2020 Supervising Physician Co-Signing Physician Notes pnt S&E, agree with above. POD#7 Christensen's. Didn't like taste of fulls but tolerated. Air and stool in bag. on exam afvss, nad. abd soft, mild distention. Ostomy pink, patent, productive of stool and gas. incision c/d/i, no infection. wbc remains elevated. KUB and cxr ordered, kub showed resolving ileus, CXR showed possible RLL pna. adv to low fiber diet, discuss possible pna with primary team, wean tpn. continue iv abx, ambulate, oobtc. possible d/c in next 1-2 days. Subjective Patient says he feels alright this AM. Endorses some nausea. He had a small amount of the cream soup yesterday, but has a tray of clears this AM at bfast. Says his pain is controlled at the moment and he started taking the PO pain meds. His ostomy is starting to function. Physical Exam Physical Exam: awake/alert Gastrointestinal (Abdomen): Inspection/Auscultation: + abdomen distended (mild) and + abdominal surgical incision (c/d/i with dottie intact. no signs of infection) Percussion/Palpation: abdomen soft + stoma red. with + stool output in bag. DALE drain serosang output Results & Data ([facility]) Vital Signs (Past 12 Hours) Vital Signs Temp Pulse Pulse Resp BP Pulse Ox 12/30/20 07:55 36.6 C 74 18 124/79 94 12/29/20 22:02 37.1 C 77 18 120/76 94 PG Care Time/CCT Total # of Minutes Spent Total Time Spent with Patient: Total time spent is greater than 50% in coordination of care (as documented) at patient's floor/unit and/or counseling patient: Coding Level of Care Code None Diagnoses Perforation of sigmoid colon due to diverticulitis K57.20
--- NOTE | 2020-12-30 08:56 | Ultrasound Report ---
ULTRASOUND BILATERAL LOWER EXTREMITY ARTERIAL; ANKLE-BRACHIAL INDICES CLINICAL HISTORY: Pelvic arterial occlusion seen by CT. COMPARISON STUDY: Abdominal CT dated 12/21/2020. TECHNIQUE: Real-time grayscale and color Doppler sonography of the arteries of the right and left low er extremity is performed from the inguinal crease to the foot. Ankle-brachial indices were evaluated . FINDINGS: Ankle-brachial indices: Right brachial pressure measures 119 and left brachial pressure measures 131. Pressures in the right dorsalis pedis measure 125 for an VIC of 0.95, and pressures in the right pos terior tibial artery measure 130 for an VIC of 0.99. Pressures in the left dorsalis pedis measure 123 for an VIC of 0.94 and pressures in the left posterior tibial artery measure 138 for an VIC of 1.05. Right lower extremity: Atherosclerotic plaque and irregularity seen throughout the arteries of the ri t lower extremity. Imaged portions of the external iliac artery are patent with velocities measurin g up to 187 cm/s. There are triphasic waveforms in the common femoral artery with velocities measurin g up to 229 cm/s. The profunda femoris artery is patent with velocities measuring up to 66 cm/s. Trip hasic waveforms are seen throughout the superficial femoral and popliteal arteries. Velocities in the superficial femoral artery measure up to 128 cm/s and velocities in the popliteal artery measure up to 76 cm/s. There is three-vessel runoff to the foot. Triphasic waveforms are maintained in the calf arteries. Velocities in the calf arteries measure up to 98 cm/s. The dorsalis pedis is patent with ve locities measuring up to 66 cm/s. Left lower extremity: Atherosclerotic plaque and irregularity is seen throughout the arteries of the left lower extremity. Imaged portions of the left external iliac artery are patent with velocities me asuring up to 161 cm/s. Triphasic waveforms are maintained in the common femoral artery with velociti es measuring up to 226 cm/s. The profunda femoris artery is patent with velocities measuring up to 77 cm/s. Triphasic waveforms are seen throughout the superficial femoral and popliteal arteries. Veloci ties in the superficial femoral artery measure up to 102 cm/s and velocities in the popliteal artery measure up to 81 cm/s. There is three-vessel runoff to the foot. Triphasic waveforms are maintained i n the calf vessels. Velocities in the calf arteries measure up to 76 cm/s. The dorsalis pedis is grissom nt with velocities measuring up to 75 cm/s. IMPRESSION: 1. There are focally elevated velocities within the common femoral artery bilaterally suggesting some degree of stenosis. 2. No focal vessel occlusion is seen throughout the arteries of the right or left lower extremity. 3. Ankle brachial indices as above. Dictated: 12/30/2020 8:28 AM Transcribed: 12/30/2020 8:47 AM Sofiya [id number] [email or web address] Electronically signed by: Ramón De La Cruz M.D. 12/30/2020 8:55 AM
[2020-12-30 09:07] LABS: ALC (manual) 2.35 K/uL (1.2-3.4); ANC (manual) 10.54 K/uL (1.4-6.5); Eosinophils # (manual) 0.83 K/uL (0-0.5); Eosinophils % (manual) 5.3 %; Lymphocytes # (manual) 2.35 K/uL (1.2-3.4); Monocytes # (manual) 1.94 K/uL (0.11-0.59); Monocytes % (manual) 12.4 %; Neutrophils # (manual) 10.54 K/uL (1.4-6.5); Neutrophils % (manual) 67.3 %
[2020-12-30 09:42] LABS: Albumin Level 2.3 gm/dl (3.4-5.0); BUN Creatinine Ratio 21.6 (10-20); Calcium 9.6 mg/dl (8.5-10.1); Creatinine Clr Calc Pharmacy 113.7 ml/min; Est GFR (African American) 122.4 ml/min; Est GFR (Non-African American) 105.6 ml/min; Magnesium 2.5 mg/dl (1.8-2.4); Potassium 4.1 mmol/L (3.5-5.1)
[2020-12-30 09:46] LABS: Albumin Globulin Ratio 0.5 (0.9-2); Bilirubin,Total 0.7 mg/dl (0.2-1); Globulin 5.1 gm/dl (2.5-4.0); Phosphorus 3.8 mg/dl (2.5-4.9); Total Protein 7.4 gm/dl (6.4-8.2)
--- NOTE | 2020-12-30 10:47 | XRay Report ---
XR chest 1V not portable HISTORY: 55 years-old Male eval for WBC acute sepsis COMPARISON: KUB of same day, CT abdomen and pelvis 12/26/2020 TECHNIQUE: Portable AP view the chest FINDINGS: Right-sided PICC distal tip projects over the right atrium. Cardiac silhouette is normal in size. No pneumothorax. Small right pleural effusion with mild right basilar opacities. Linear subsegmental ate lectasis/scarring of the lateral left midlung. Bones appear intact. IMPRESSION: 1. Small right pleural effusion with right lung base consolidation suspicious for pneumonia. 2. Satisfactory positioning of the right-sided PICC. ACT 112: Negative or not required by law. The above report was generated using voice recognition software. It may contain grammatical, syntax o r spelling errors. Electronically signed by: Steve Candelario M.D. 12/30/2020 10:45 AM
--- NOTE | 2020-12-30 11:34 | XRay Report ---
KUB HISTORY: Postop. Elevated white blood cell count. s/p sigmoid/hartmanns COMPARISON: Abdomen and pelvis CT 12/26/2020. FINDINGS: There again noted midline skin dottie with a percutaneous drain terminating in the left si de of the abdomen. This is unchanged compared the prior study. There is a left lower quadrant colosto my noted. Borderline dilated gas-filled loops of small bowel within the right side the abdomen and co troy have slightly improved. Findings suggest a resolving postoperative ileus. No renal calculi. No u reteral calculi. No pneumoperitoneum or pneumatosis. IMPRESSION: 1. Slight improvement in the borderline dilated gas-filled loops of large and small bowel suggesting a resolving postoperative ileus. 2. Postoperative changes as described above. ACT 112: Negative or not required by law. Electronically signed by: Raffaele Kasper M.D. 12/30/2020 11:32 AM
[2020-12-30] MEDS ORDERED: Custom Central Pn 2,000 ML in TPN BAG 0 ML IV SCH (16:00)
[2020-12-31] MEDS: PIPERACILLIN/TAZOBACTAM 3.375 GM in DEXTROSE 5% 100 ML IV SCH (06:26)
[2020-12-31] MEDS: MoRPHine SULFATE 2 MG/ML CARP IV PRN (07:43)
[2020-12-31] MEDS: ENOXAPARIN INJ 40 MG/0.4 ML SYR SQ SCH (07:44)
[2020-12-31] MEDS: NICOTINE 7 MG/24 HR TDSY TD SCH (07:44)
--- NOTE | 2020-12-31 07:54 | Surgery Progress Note ---
Date of Service December 31, 2020 Assessment & Plan (1) Perforation of sigmoid colon due to diverticulitis: Plan: POD#8 Jessi's labs pending drain removed can shower home if tolerates diet and WBC improved or stable Admission and Anticipated Discharge Date Admission Date: December 21, 2020 Supervising Physician Co-Signing Physician Notes Patient S&E, agree with above. POD#8 s/p Christensen's, tolerated diet, ambulating, pain controlled. Ostomy functioning. afvss, abd soft, incision c/d/i, ostomy functioning. wbc downtrending but elevated. okay to d/c to home, 2 more days oral abx for diverticulitis. Check with primary regarding questionable pna on cxr. ostomy nurse consult and order supplies. f/u next week for staple removal. activity restrictions and wound care instructions reviewed. Subjective tolerated low fiber dinner Physical Exam Gastrointestinal (Abdomen): Inspection/Auscultation: + abdominal surgical incision (dry, no erythema) and + abdominal surgical drain present (10 cc); abdomen not distended Percussion/Palpation: abdomen soft Results & Data ([facility]) Vital Signs (Past 12 Hours) Vital Signs Temp Pulse Pulse Resp BP BP Pulse Ox 12/31/20 07:49 37.1 C 78 16 110/71 94 12/30/20 22:17 37.0 C 79 18 112/71 95 PG Care Time/CCT Total # of Minutes Spent Total Time Spent with Patient: Total time spent is greater than 50% in coordination of care (as documented) at patient's floor/unit and/or counseling patient: Coding Level of Care Code None Diagnoses Perforation of sigmoid colon due to diverticulitis K57.20
--- NOTE | 2020-12-31 08:24 | Discharge Summary ---
Date of Service December 31, 2020 Admission HPI Per Admitting Provider Dvaon Romero is a 55y/o M with PMH significant for 40+ year smoking history; who presented to the ER for evaluation of abdominal pain that had been present over the last day. Noticed the pain first thing Monday morning and this progressively has increased over time. Has not previously had any issues with his abdomen, nor has any history of abdominal surgeries. Has not been able to tolerate eating or drinking since this started yesterday. Has not had vomiting, has had some nausea due to the pain. Admission Exam Per Admitting Provider Constitutional: WD/WN, vitals as above Eyes: PERRL, conjunctivae normal, anicteric sclerae Respiratory:L normal respiratory effort, lungs clear to auscultation Auscultation: no crackles, no rales, no rhonchi and no wheezes Cardiovascular: Rate/Rhythm: regular rate and regular rhythm Heart Sounds: no gallop, no murmur and no cardiac rub Vessels: normal peripheral pulses; no JVD Extremities: no edema Gastrointestinal (Abdomen): Inspection/Auscultation: + abdomen distended; + abnormal bowel sounds (Hypoactive) Percussion/Palpation: + abdomen tender, + guarding, abdomen soft and normal to percussion; no hepatosplenomegaly, no marisela ia and no abdominal mass Musculoskeletal: no cyanosis or clubbing, extremities motor strength 5/5 Skin: no rashes, warm and dry Neurologic: PERRL, EOMI, accommodation nl, no face palsy, no dysarthria CN's II-XI intact bilaterally and moves all extremities Psychiatric: Orientation: alert and oriented x 3 Principal Diagnosis perforated diverticulitis Discharge Exam General: Grossly A&O. NAD. Cooperative. HEENT: Atraumatic, normocephalic. EOMI Pulm: CTAB bilaterally anteriorly and laterally and posteriorly. No respiratory distress. Cardiac: RRR, -mrg. Abdominal: Very mild ttp to light palpation. Clean dressing over R abd former ning site. Ostomy w/ brown liquidy stool, partial amounts formed. Abd incision dottie appropriate and nonerythematous. Discharge Data Allergies Allergy/AdvReac Type Severity Reaction Status Date / Time No Known Allergies Allergy Unverified 12/21/20 07:58 Consultations 12/21/20 08:22 ED Decision to Admit Stat 12/21/20 10:30 Consult General Surgery Routine Procedures Performed Operation Date: 12/23/20 07:00 Actual Procedures s Diagnostic Laparoscopy, (Not Applicable) - Aleksandr Rooney DO, FACS p Open Sigmoidectomy, End Colostomy with Jessi's Pouch(Not Applicable) - Aleksandr Rooney DO, FACS Ordered Studies 12/31/20 07:50 12/31/20 07:50 Abdomen/Pelvis CT 12/21/20 06:00 CT SCAN OF THE ABDOMEN AND PELVIS WITH IV CONTRAST CLINICAL HISTORY: Right lower quadrant abdominal pain. COMPARISON STUDY: No priors. TECHNIQUE: Following the IV administration of 94 cc of Optiray 320, CT scan of the abdomen and pelvis is performed from the lung bases to the proximal femora. Images are reviewed in the axial, sagittal, and coronal planes. IV contrast was administered without complication. A dose lowering technique was utilized ad joe to the principles of ALARA. CT DOSE: 400.12 mGy.cm FINDINGS: Lung bases: The heart is normal in size and without pericardial effusion. The lung bases are clear noting bibasilar scarring/atelectasis. There is a tiny hiatal hernia. Liver: The contrast-enhanced liver is normal in size, contour, and attenuation. There is no intrahepatic biliary ductal dilatation. The hepatic veins and portal veins are patent. Gallbladder: Unremarkable. Spleen: Normal in size and attenuation. Pancreas: There is an indeterminant 1.9 cm low-attenuation lesion arising from the body of the pancreas seen on image #110. The pancreatic duct is normal in caliber. Adrenal glands: Unremarkable. Kidneys: The contrast enhanced kidneys are normal in size and without hydronephrosis. The kidneys enhance symmetrically. Abdominal vasculature: There is advanced atherosclerotic calcification of the a bdominal aorta. An infrarenal abdominal aortic aneurysm measures up to 3.5 cm. 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 Bowel: There is mild colonic diverticulosis. There is wall thickening and edema with pericolonic infiltration and fluid involving the sigmoid colon consistent with acute diverticulitis. No bowel obstruction is seen. No organized fluid collection is seen to suggest abscess. The appendix is well-visualized and normal. Peritoneum: There are small foci of intraperitoneal free air identified in the central pelvis (axial images #282 and #289). Trace free fluid is seen in the pelvis. Lymphadenopathy: None. Pelvic viscera: The prostate gland is enlarged and heterogeneous. The bladder is distended, the wall appears thickened and trabeculated indicating chronic outlet obstruction Skeletal structures: No lytic or blastic lesions are seen. IMPRESSION: 1. Findings are consistent with acute sigmoid diverticulitis. 2. Small foci of intraperitoneal free air in the pelvis indicate perforation. 3. There is no organized fluid collection to suggest abscess. 4. There is a 1.9 cm indeterminant low-attenuation lesion arising from the body of the pancreas. This is pathologically indeterminant, and correlation with a contrast-enhanced MRI of the pancreas is recommended for further evaluation. 5. 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 6. 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 8. Additional findings as above. ACT 112: Positive. There are findings on this exam that require communication between the performing entity and the patient following Patient Test Result Information Act ([place] Act 112) guidelines. Electronically signed by: Ramón De La Cruz M.D. 12/21/2020 7:49 AM Abdomen/Pelvis CT 12/21/20 23:14 CT OF THE ABDOMEN AND PELVIS WITH CONTRAST CLINICAL HISTORY: Sigmoid diverticulitis, worsening abdominal pain. COMPARISON STUDY: CT of the abdomen and pelvis December 21, 2020 at 7:23 AM. TECHNIQUE: Following IV administration of 100 mL of Optiray, axial images of the abdomen and pelvis were obtained from the lung bases to the proximal femurs. Images were reviewed in the axial, sagittal, and coronal planes. IV contrast was administered without complication. Automated exposure control was utilized for the study. A dose lowering technique was utilized adhering to the principles of ALARA. CT DOSE: 372.96 mGy.cm FINDINGS: There has been interval dominant of bilateral lower lobe airspace opacities. The appearance favors atelectasis. No hepatic lesions are present. There is no biliary or pancreatic ductal dilatation. The spleen, adrenal glands and kidneys are unremarkable. There is no hydronephrosis. A 1.9 cm hypodense lesion along the posterior aspect of the pancreatic body on axial image [id number] is again noted. There is no peripancreatic infiltration. There is no evidence for a bowel obstruction. Colonic diverticulosis is noted. Note is made of wall thickening of the mid sigmoid colon. Adjacent inflammation has increased since CT of December 21, 2020. This extends into the mesentery. The amount of pneumoperitoneum consistent with perforation has also increased. There is trace fluid within the right paracolic gutter. No abscess is present. The appendix is normal. Contrast within the bladder is from recent contrast-enhanced CT. 3.4 cm infrarenal abdominal aortic aneurysm is present. There is mild dilatation of the left common iliac artery, measuring 1.8 cm. 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 IMPRESSION: Findings consistent with interval worsening of perforated acute sigmoid diverticulitis since prior CT. Increase in pericolonic inflammation and pneumoperitoneum. No abscess. No bowel obstruction. ACT 112: Negative or not required by law. Electronically signed by: Clifton Yung M.D. 12/22/2020 8:17 AM Abdomen/Pelvis CT 12/26/20 08:48 CT abd pelvis IV con only CLINICAL HISTORY: Status post sigmoidectomy with increasing abdominal pain COMPARISON STUDY: 12/21/2020 CT DOSE: 367.63 mGy.cm TECHNIQUE: Standard CT of the Abdomen and Pelvis was performed with IV contrast. A dose lowering technique was utilized adhering to the principles of ALARA. Contrast Volume: Isovue 320, 89 ml. The patient did not receive oral contrast. FINDINGS: Lung base: Compared to the previous examination, there is now complete right lower lobe atelectasis/collapse and evidence of small right pleural effusion. There are atelectasis is also seen at the left lung base which has slightly improved. Abdominal cavity and bowel: There is no evidence for abdominal mass, adenopathy or ascites. Compared to the previous examination, the patient is status post interval sigmoidectomy with colostomy in left lower quadrant. There are again mildly to moderately dilated loops of small bowel throughout the abdomen and pelvis with fluid levels present. These findings are most characteristic of continued ileus. The presence of a partial bowel obstruction is less likely. There is interval decrease in pneumoperitoneum. Surgical drain is present with no evidence for free abdominal pelvic fluid. There is no evidence for postoperative abscess. There is a normal appendix in the right lower quadrant. Liver: There is homogeneous attenuation of the liver parenchyma. There is no evidence for enhancing mass lesion. Spleen: There is homogeneous attenuation of the splenic parenchyma. There is no enhancing mass lesion. Pancreas: There is homogeneous attenuation of the pancreatic parenchyma. There is no evidence for mass lesion or peripancreatic fluid collection. Gall Bladder: The gallbladder is well distended with no evidence for intraluminal calculi, wall thickening or pericholecystic edema. Adrenal glands: The adrenal glands are normal in size and attenuation. There is no evidence for enhancing mass lesion. Kidneys: There is homogeneous attenuation of the renal parenchyma bilaterally. There is no evidence for renal calculus or hydronephrosis. There is no evidence for enhancing mass. Bladder: The bladder is within normal limits with no evidence for focal mass, calculus or diverticulum. There is mild diffuse thickening of the bladder wall characteristic of chronic bladder outlet obstruction. : There is no evidence for pelvic mass or adenopathy. There is no evidence for pelvic ascites. Prostate is again enlarged. Vasculature: There is no evidence for aneurysmal dilatation of the abdominal aorta. Atherosclerotic calcification is present. Osseous structures: There is no acute osseous pathology. IMPRESSION: 1. Status post interval sigmoidectomy with colostomy left lower quadrant. No postoperative complications are present as described above. 2. There is decreased pneumoperitoneum with no focal fluid collections or abscess. 3. There is evidence for persistent ileus of the small bowel as described above. The presence of partial small bowel obstruction would be less likely. 4. Interval development of complete atelectasis/collapse of the right lower lobe. Decreased left basilar atelectasis. 5. Additional nonacute findings are delineated above. ACT 112: Negative or not required by law. Electronically signed by: Leroy Bright M.D. 12/26/2020 11:49 AM Duplex Scan Lower Extremity Artery 12/30/20 08:50 ULTRASOUND BILATERAL LOWER EXTREMITY ARTERIAL; ANKLE-BRACHIAL INDICES CLINICAL HISTORY: Pelvic arterial occlusion seen by CT. COMPARISON STUDY: Abdominal CT dated 12/21/2020. TECHNIQUE: Real-time grayscale and color Doppler sonography of the arteries of the right and left lower extremity is performed from the inguinal crease to the foot. Ankle-brachial indices were evaluated. FINDINGS: Ankle-brachial indices: Right brachial pressure measures 119 and left brachial pressure measures 131. Pressures in the right dorsalis pedis measure 125 for an VIC of 0.95, and pressures in the right posterior tibial artery measure 130 for an VIC of 0.99. Pressures in the left dorsalis pedis measure 123 for an VIC of 0.94 and pressures in the left posterior tibial artery measure 138 for an VIC of 1.05. Right lower extremity: Atherosclerotic plaque and irregularity seen throughout the arteries of the right lower extremity. Imaged portions of the external iliac artery are patent with velocities measuring up to 187 cm/s. There are triphasic waveforms in the common femoral artery with velocities measuring up to 229 cm/s. The profunda femoris artery is patent with velocities measuring up to 66 cm/s. Triphasic waveforms are seen throughout the superficial femoral and popliteal arteries. Velocities in the superficial femoral artery measure up to 128 cm/s and velocities in the popliteal artery measure up to 76 cm/s. There is three- vessel runoff to the foot. Triphasic waveforms are maintained in the calf arteries. Velocities in the calf arteries measure up to 98 cm/s. The dorsalis pedis is patent with velocities measuring up to 66 cm/s. Left lower extremity: Atherosclerotic plaque and irregularity is seen throughout the arteries of the left lower extremity. Imaged portions of the left external iliac artery are patent with velocities measuring up to 161 cm/s. Triphasic waveforms are maintained in the common femoral artery with velocities measuring up to 226 cm/s. The profunda femoris artery is patent with velocities measuring up to 77 cm/s. Triphasic waveforms are seen throughout the superficial femoral and popliteal arteries. Velocities in the superficial femoral artery measure up to 102 cm/s and velocities in the popliteal artery measure up to 81 cm/s. There is three-vessel runoff to the foot. Triphasic waveforms are maintained in the calf vessels. Velocities in the calf arteries measure up to 76 cm/s. The dorsalis pedis is patent with velocities measuring up to 75 cm/s. IMPRESSION: 1. There are focally elevated velocities within the common femoral artery bilaterally suggesting some degree of stenosis. 2. No focal vessel occlusion is seen throughout the arteries of the right or left lower extremity. 3. Ankle brachial indices as above. Dictated: 12/30/2020 8:28 AM Transcribed: 12/30/2020 8:47 AM Sofiya [id number] [email or web address] Electronically signed by: Ramón De La Cruz M.D. 12/30/2020 8:55 AM Chest X-Ray 12/30/20 09:08 XR chest 1V not portable HISTORY: 55 years-old Male eval for WBC acute sepsis COMPARISON: KUB of same day, CT abdomen and pelvis 12/26/2020 TECHNIQUE: Portable AP view the chest FINDINGS: Right-sided PICC distal tip projects over the right atrium. Cardiac silhouette is normal in size. No pneumothorax. Small right pleural effusion with mild right basilar opacities. Linear subsegmental atelectasis/scarring of the lateral left midlung. Bones appear intact. IMPRESSION: 1. Small right pleural effusion with right lung base consolidation suspicious f or pneumonia. 2. Satisfactory positioning of the right-sided PICC. ACT 112: Negative or not required by law. The above report was generated using voice recognition software. It may contain grammatical, syntax or spelling errors. Electronically signed by: Steve Candelario M.D. 12/30/2020 10:45 AM KUB X-Ray 12/30/20 09:08 KUB HISTORY: Postop. Elevated white blood cell count. s/p sigmoid/hartmanns COMPARISON: Abdomen and pelvis CT 12/26/2020. FINDINGS: There again noted midline skin dottie with a percutaneous drain terminating in the left side of the abdomen. This is unchanged compared the prior study. There is a left lower quadrant colostomy noted. Borderline dilated gas-filled loops of small bowel within the right side the abdomen and colon have slightly improved. Findings suggest a resolving postoperative ileus. No renal calculi. No ureteral calculi. No pneumoperitoneum or pneumatosis. IMPRESSION: 1. Slight improvement in the borderline dilated gas-filled loops of large and small bowel suggesting a resolving postoperative ileus. 2. Postoperative changes as described above. ACT 112: Negative or not required by law. Electronically signed by: Raffaele Kasper M.D. 12/30/2020 11:32 AM Hospital Course (1) Perforation of sigmoid colon due to diverticulitis: 55yo male smoker presented to the ED with abdominal pain, found to have diverticulitis with perforation s/p sigmoidectomy and colostomy placement. Sigmoid diverticulitis with perforation s/p open sigmoidectomy, end colostomy Acute-onset abdominal pain, tachycardic on admission, leukocytosis to 18, CT with sigmoid diverticulitis and perforation 12/23: patient underwent diagnostic laparoscopy which was converted to open sigmoidectomy and end colostomy 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 transitioned from [employer] to PO regimen Kept on TPN and later discontinued Home health w/ ostomy care Follow up cbc and cmp in 1 month as patient had leukocytosis and liver enzyme elevations, last labs were wbc 13.95, ast 57, alt 137, alk phos 249 10 day total course of abx treatment, Zosyn while inpatient, w/ 2.5 more days of Augmentin PO upon dispo CT scan -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 - Arterial doppler - Some degree of stenosis of common femoral arteries. Borderline ABIs in the DP arteries. - Will need to start statin and antiplatelet - to be addressed as outpatient. - discussed smoking cessation Infrarenal abdominal aneurysm CT abdomen/pelvis demonstrating 3.5cm infrarenal abdominal aortic aneurysm, 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 No intervention indicated at this time. Continue outpatient surveillance Small right pleural effusion with right lung base consolidation Asymptomatic and without hypoxia. (2) Lung consolidation: Total Time Total Time Spent Total Time Spent (In Minutes): <30 Discharge Plan Discharge Items Patient Disposition: Home - Self-Care Reason For Visit: DIVERTICULITIS Discharge Diagnosis: perforated sigmoid diverticulitis open sigmoidectomy with Jessi's Activity: Per Instructions section Lifting: No more than 10 pounds Bathing Comment: may shower; no soaking in tubs/pools Exercise/Sports: Wait until after follow-up appointment Driving/Machine Use: no driving while taking narcotics for pain Non-emergency contact: Primary Care Provider Call non-emergency contact if: you have any medication questions, your symptoms worsen, your pain is not controlled, your pain is worsening, your pain is concerning for you, you have a fever, your temperature is above 101.5, your wound has increased redness, your wound has increased drainage and your wound pain has increased Follow-up/Referrals: Mana Myers CRNP [Primary Care Provider] - (follow up with PCP for hosp discharge follow up within 1 week) Aleksandr Rooney DO, FACS [Physician] - (Please call to schedule follow up in clinic next week for staple removal) Diet: Low Fiber Addtl Attending Provider Instructions: You were admitted to the hospital for diverticulitis (a type of infection of the colon) with perforation (a tear or opening in the bowel wall). You were treated with antibiotics, IV fluids, and nasogastric (from the nose to the stomach) decompression. Your condition worsened despite medical therapy with antibiotics, and your surgical team performed an operation called a sigmoidectomy with creation of a colostomy (connecting your bowel to an opening in the skin, which allows the farther part of your bowel to rest and heal). When your bowel heals adequately, your surgical team plans to reconnect your bowel to itself so that you no longer need to use the colostomy bag. You will take an oral antibiotic called Augmentin twice a day for a total of 5 doses with the first dose tonight 12/31/20 in the evening. A discharge summary will be sent to your primary care physician to ensure continuity of care. Please bring this discharge summary with you to your next office appointment so that your provider can review it at that time. Follow-up appointments: Make a follow-up appointment with your PCP within the next week. It is very important that you follow up with them shortly after discharge from the hospital. Keep all your follow-up appointments as already scheduled. If you cannot make an appointment, notify your provider. CONTACT YOUR PRIMARY CARE PROVIDER if you experience any of the following: Fever, chills, nausea/vomiting that does not go away, bloody vomit/stool, chest pain, shortness of breath or any other concerns that are concerning. Difficulty following your treatment plan, or difficulty taking medications CALL 911 OR GO TO THE EMERGENCY DEPARTMENT if you experience any of the following: Sudden, severe abdominal pain or nausea/vomiting Severe chest pain, or chest pain that radiates (moves) to your jaw or arm Sudden, severe shortness of breath or difficulty breathing Thank you for allowing us to participate in your care. Pending Studies at Discharge: Yes Studies:: surgical pathology Stand-Alone Forms: [facility] Medications and DC Order Prescriptions: New oxycodone-acetaminophen [Percocet] 5-325 mg tablet 1 - 2 tab PO Q4H PRN (Reason: pain, initial therapy, max 6 daily) Qty: 16 RF: 0 amoxicillin-pot clavulanate [Augmentin] 875-125 mg tablet 1 tab PO Q12H Qty: 5 RF: 0 Discharge Orders: Discharge Order (Routine); Ordered 12/31/20 Ordered By: Robby Villalta/Other Patient Handouts: Colostomy: Managing Your Nutrition Admission Data Admit Date/Time: 12/21/20 09:21 Attending Provider: Xiomara Hicks Admit Provider: Sergo Fox Primary Care Provider: Mana Myers Other Providers: Maurizio Woo ; Aleksandr Rooney ; [place] ; [place] Other Interventions: Discharge Summary Assessment (RN) Last Done: 12/31/20 16:50 Supervising Physician Co-Signing Physician Notes Resident Physician Supervision Note: I independently interviewed and examined the patient and verified the roe history and physical, reviewed labs and image studies and agree with resident Dr. Grossman findings and care plan. Resident Activity Tracking Resident Involvement: Resident Care Provided Care Provided: Adult Hospital Medicine
[2020-12-31 08:38] LABS: Basophils % (auto) 0.7 %; Eosinophils # (auto) 0.39 K/uL (0-0.5); Eosinophils % (auto) 2.8 %; Hematocrit (blood only) 40.9 % (42-52); Hemoglobin 13.9 g/dL (14.0-18.0); Immature Granulocytes # (auto) 0.14 K/uL (0.00-0.02); Lymphocytes # (auto) 2.74 K/uL (1.2-3.4); Lymphocytes % (auto) 19.6 %; Mean Corpuscular Hemoglobin 30.3 pg (25-34); Mean Corpuscular Volume 89.1 fL (80-100); Mean Platelet Volume 10.4 fL (7.4-10.4); Monocytes % (auto) 15.1 %; Neutrophils # (auto) 8.48 K/uL (1.4-6.5); Neutrophils % (auto) 60.8 %; Platelet Count 545 K/uL (130-400); RDW Coefficient of Variation 14.5 % (11.5-14.5); RDW Standard Deviation 47.6 fL (36.4-46.3); Red Blood Count 4.59 M/uL (4.7-6.1); White Blood Count 13.95 K/uL (4.8-10.8)
[2020-12-31 09:19] LABS: Albumin Level 2.5 gm/dl (3.4-5.0); BUN Creatinine Ratio 19.7 (10-20); Calcium 9.2 mg/dl (8.5-10.1); Creatinine Clr Calc Pharmacy 106.3 ml/min; Est GFR (Non-African American) 102.7 ml/min; Magnesium 2.6 mg/dl (1.8-2.4)
[2020-12-31 09:22] LABS: Albumin Globulin Ratio 0.5 (0.9-2); Bilirubin,Total 0.5 mg/dl (0.2-1); Globulin 5.3 gm/dl (2.5-4.0); Phosphorus 3.7 mg/dl (2.5-4.9); Total Protein 7.8 gm/dl (6.4-8.2)
[2020-12-31] MEDS ORDERED: AMOXICILLIN/CLAVULANATE 875 MG TAB PO STA (17:52)
[2020-12-31] MEDS: oxyCODONE HCL IR 5 MG TAB (IMMEDIATE RELEASE) PO PRN (18:02)
== END 2020-12-31 18:20 | disposition home or self-care (01) | DRG 329 ==
LOC: ED 05:38 → 3E 09:21 → SUATTDRO 09:21 → 3E 10:00 → 2N 12-22 13:34 → 3E 12-26 20:29

== ENCOUNTER 2022-09-18 17:39 | Inpatient (IN) ==
[2022-09-18 18:12] LABS: Hematocrit (blood only) 47.5 % (42.0-52.0); Hemoglobin 16.6 g/dl (14.0-18.0); Mean Corpuscular Hgb Conc 34.9 g/dL (32.0-36.0); Mean Corpuscular Volume 88.6 fL (80.0-100.0); Mean Platelet Volume 9.2 fL (9.4-12.4); Platelet Count 297 K/uL (130-400); RDW Coefficient of Variation 14.7 % (11.5-14.5); RDW Standard Deviation 47.9 fL (36.4-46.3); Red Blood Count 5.36 M/uL (4.70-6.10); White Blood Count 13.23 K/ul (4.8-10.8)
--- NOTE | 2022-09-18 18:15 | Emergency Department Note ---
Impression & Plan Acute alteration in mental status, Hypertension, Encephalopathy, Headache ED Provider Note NAME: RICK BONILLA AGE: 57 SEX: M : 1965 ARRIVES VIA: Walk-In INFORMANT: Patient, patient's significant other ED PROVIDER(S): Rafael Lacey DO CHIEF COMPLAINT: Altered mental status HPI: The patient is a 57-year-old male who presented to the emergency department with his significant other for an evaluation of altered mental status. The p atient was in his normal state of health till approximately 12 to 12:15 PM today ever since that time he has been dizzy. He does complain of a slight headache but he denies having any back pain neck pain or falls. He has had no fever or chills. He has had no nausea or vomiting. He has been able to ambulate but very slowly. His significant other was concerned because his blood pressure was very elevated. She brought him to the emergency department for further evaluation. He does admit to some alcohol use today. ROS: See above HPI for pertinent positives & negatives. A total of 10 systems reviewed and were otherwise negative. PAST MEDICAL HISTORY: See Below PAST SURGICAL HISTORY: See Below FAMILY HISTORY: See Below SOCIAL HISTORY: See Below HOME MEDICATIONS: See Below ALLERGIES: See Below VITALS: See Below PHYSICAL EXAMINATION: GENERAL: The patient is awake and alert. Patient answers questions slowly. EYES: The conjunctivae are clear. The pupils are round and reactive. EARS, NOSE, MOUTH AND THROAT: The nose is without any evidence of any deformity. NECK: The neck is nontender and supple. RESPIRATORY: Normal respiratory effort is noted there is no evidence of wheezing rhonchi or rales CARDIOVASCULAR: Regular rate and rhythm noted there no murmurs rubs or gallops normal S1 normal S2. GASTROINTESTINAL: The abdomen is soft. Abdomen is nontender. MUSCULOSKELETAL/EXTREMITIES: There is no evidence of gross deformity full range of motion is noted in the hips and shoulders. SKIN: There is no obvious evidence of any rash. There are no petechiae, pallor or cyanosis noted. NEUROLOGIC: Patient is awake and oriented x3 strength is symmetric patellar reflexes are 1+ bilaterally. The patient's speech is soft but clear. He is able to hold each leg off the bed for greater than 5 seconds. Tourist Guide strength is diminished bilaterally. MEDICAL DECISION MAKING: The patient is a 57-year-old male who presented to the emergency department with his significant other for an evaluation of altered mental status. Apparently the patient's been having symptoms since approximately noon. He was not made a stroke alert as he had no focal neurologic deficits and his presentation was greater than 3 hours after the onset of symptoms. The patient was very slow to answer questions. He appeared confused at times. His presentation appeared to be more consistent with encephalopathy. He did somewhat improve while in the emergency department. He did complain of a headache. He denied having any fever and had no meningismus on my physical exam. I discussed the patient's laboratory and radiographic studies with him. I also discussed his case with the on-call [facility] hospitalist. I do not feel this is related to alcohol consumption or alcohol withdrawal. He was treated with a small dose of Ativan but mostly to help with a lumbar puncture. Lumbar puncture was done which he tolerated quite well. Laboratory studies are still pending at this time. Laboratory as well as tickborne illness panel was obtained. He was treated with IV Decadron and IV antibiotics. Triage Nursing notes reviewed. Prior medical records reviewed Vital Signs: reviewed and remarkable for elevated blood pressure. Differential diagnosis: Infection, hypoglycemia, electrolyte abnormalities, overdose, toxicologic, cardiac sources, intracerebral event, neurologic, trauma, as well as other pathologies. ER treatment provided: See below Diagnostics interpreted by me: ECG: EKG was obtained in the emergency department. My interpretation is normal sinus rhythm at 84 bpm. There was no ectopy. There is no acute ST segment abnormalities noted. This was compared to a tracing from December 23, 2020. No changes were noted. Cardiac Monitoring: An order was placed for continuous cardiac monitoring. The monitor shows a rate of 82 bpm with sinus rhythm. Laboratory studies: As stated above and show below. Imaging studies: See below. Radiographic imaging was reviewed by myself Consultation(s): I discussed this case with Dr. Sykes ED COURSE: Procedures: Lumbar Puncture Indication: Headache and altered mental status. Verbal consent was obtained after the risks and benefits were explained, including but not limited to headache, bleeding/clotting, scarring, infection, pain, and bone/joint/nerve damage. At this time, the risks of the procedure are less than the risks of NOT performing the procedure. A time out was taken and th e correct patient and site identified. The patient was placed in the seated position and the back was prepped with betadine and draped in the standard fashion. The L3 intervertebral space was identified, anesthetized locally with 1% lidocaine without epinephrine, and the spinal needle was inserted through the skin with the bevel parallel to the dural fibers. The needle was carefully advanced into the lumbar cistern and 4 tubes of clear CSF was obtained. The stylet was replaced and the needle was removed. A bandaid was placed and the patient was placed in the supine position. The patient tolerated the procedure well and there were no complications. Critical Care: I have personally spent greater than 45 minutes of critical care time in the direct management of this patient. This includes bedside care, interpretation of diagnostic studies, and testing, discussion with consultants, patient, and family members, and other required patient management activities. This 45 minutes is in excess of all separately billable procedures. Past Med/Surg History Medical History Aneurysm of infrarenal abdominal aorta Recent dx- started on ASA/statin by PCP Asthma No inhaler/recent issues Encounter for pre-operative examination Groin pain Hyperlipidemia Lymphangitis No known health problems Pancreatic lesion PCP monitoring, plan for MRI Psoriasis Right lower quadrant abdominal pain Sigmoid diverticulitis Hx Surgical History History of colonoscopy Colonoscopy (03/25/21): MAC at [facility] History of colostomy reversal (05/05/21) Laparoscopic-Assisted Colostomy Reversal, Laproscopic mobilization of spelenic flexure, Extensive lysis of adhesions - Aleksandr Rooney DO, FACS 05/05/2021 S/P laparoscopic-assisted sigmoidectomy (12/23/20) Diagnostic Laparoscopy, Open Sigmoidectomy, End Colostomy with Jessi's Pouch (12/23/20): Grade view 1, Glidescope#4, ETT 7.5 at [facility] Family History Mother Diabetes Father Stroke Denies family history of Ovarian cancer Prostate cancer Myocardial infarction Breast cancer Colorectal cancer Social History Smoking Status: Current every day smoker Tobacco Type: Cigarettes Age Started Using Tobacco: 16; Cigarettes Per Day: 20; Second Hand Exposure: Yes; Do You Dip or Chew Tobacco: No; Hx Alcohol Use: Yes Alcohol type: beer Hx Substance Use: No Preferred Language: Amharic Communication Ability: Effective Visual Impairment: No Limitations Computer Service Technician Required: No Beliefs That Will Affect Care: None marital status: Current Living Situation: Significant Other Current Living Situation Comment: LIVES WITH MELODIE ELINOR HART current occupational status: employed 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 How many Children do You have: 3 Feels Safe at Home: Yes Childhood Exposure to Second-Hand Smoke: Yes Diet: regular Diet Comment: low reffage diet at the moment caffeine: Yes Dental Care, Regularly: Yes Physical Activity Frequency: Daily Seatbelt Use: sometimes Sunscreen Use: No Assistive Devices: None Allergies Allergies Allergy/AdvReac Type Severity Reaction Status Date / Time No Known Allergies Allergy Verified 09/12/22 14:31 Home Meds Previous Rx's Medication Instructions Recorded atorvastatin 10 mg tablet 10 mg PO QAM #90 tabs 09/12/22 Results & Data (ED) Vital Signs Vital Signs - 24 hr 09/18/22 17:40 09/18/22 17:57 09/18/22 17:58 Temperature 36.4 C L Temperature Source Temporal Artery Scan Pulse Rate 89 90 Pulse Rate from SpO2 Sensor Respiratory Rate 18 Respiratory Effort / Characteristics Non-Labored Respiratory Depth Normal Blood Pressure 194/108 H Blood Pressure Mean 136 Pulse Oximetry 97 98 Oxygen Delivery Method Room Air Room Air Sepsis Recent Fever Within 48 Hours No Sepsis New/Unexplained Change in Mental Status No Sepsis Action Taken by Nursing No Action Required 09/18/22 17:56 09/18/22 18:00 09/18/22 18:00 Temperature Temperature Source Pulse Rate 95 H 79 Pulse Rate from SpO2 Sensor 92 H 80 Respiratory Rate 22 20 Respiratory Effort / Characteristics Respiratory Depth Blood Pressure 168/107 H Blood Pressure Mean 123 Pulse Oximetry 95 96 Oxygen Delivery Method Sepsis Recent Fever Within 48 Hours Sepsis New/Unexplained Change in Mental Status Sepsis Action Taken by Nursing 09/18/22 18:10 09/18/22 18:15 09/18/22 18:15 Temperature Temperature Source Pulse Rate 79 78 Pulse Rate from SpO2 Sensor 79 77 Respiratory Rate 19 17 Respiratory Effort / Characteristics Respiratory Depth Blood Pressure 157/105 H Blood Pressure Mean 125 Pulse Oximetry 96 96 Oxygen Delivery Method Sepsis Recent Fever Within 48 Hours Sepsis New/Unexplained Change in Mental Status Sepsis Action Taken by Nursing 09/18/22 18:20 09/18/22 18:36 09/18/22 18:40 Temperature Temperature Source Pulse Rate 77 77 79 Pulse Rate from SpO2 Sensor 77 Respiratory Rate 18 13 17 Respiratory Effort / Characteristics Respiratory Depth Blood Pressure Blood Pressure Mean Pulse Oximetry 96 Oxygen Delivery Method Sepsis Recent Fever Within 48 Hours Sepsis New/Unexplained Change in Mental Status Sepsis Action Taken by Nursing 09/18/22 19:00 09/18/22 19:07 09/18/22 19:07 Temperature Temperature Source Pulse Rate 82 89 Pulse Rate from SpO2 Sensor Respiratory Rate 20 16 Respiratory Effort / Characteristics Respiratory Depth Blood Pressure 155/91 H 155/91 H Blood Pressure Mean 112 107 Pulse Oximetry 96 Oxygen Delivery Method Room Air Sepsis Recent Fever Within 48 Hours Sepsis New/Unexplained Change in Mental Status Sepsis Action Taken by Nursing 09/18/22 19:10 09/18/22 19:20 09/18/22 19:30 Temperature Temperature Source Pulse Rate 80 88 Pulse Rate from SpO2 Sensor 81 88 Respiratory Rate 19 23 Respiratory Effort / Characteristics Respiratory Depth Blood Pressure 172/126 H Blood Pressure Mean 137 Pulse Oximetry 95 96 Oxygen Delivery Method Sepsis Recent Fever Within 48 Hours Sepsis New/Unexplained Change in Mental Status Sepsis Action Taken by Nursing 09/18/22 19:30 09/18/22 19:40 09/18/22 19:50 Temperature Temperature Source Pulse Rate 86 78 82 Pulse Rate from SpO2 Sensor 78 81 Respiratory Rate 25 H 16 22 Respiratory Effort / Characteristics Respiratory Depth Blood Pressure Blood Pressure Mean Pulse Oximetry 97 99 Oxygen Delivery Method Sepsis Recent Fever Within 48 Hours Sepsis New/Unexplained Change in Mental Status Sepsis Action Taken by Nursing 09/18/22 20:00 09/18/22 20:00 09/18/22 20:10 Temperature Temperature Source Pulse Rate 81 80 Pulse Rate from SpO2 Sensor 80 80 Respiratory Rate 20 20 Respiratory Effort / Characteristics Respiratory Depth Blood Pressure 136/88 Blood Pressure Mean 101 Pulse Oximetry 97 98 Oxygen Delivery Method Sepsis Recent Fever Within 48 Hours Sepsis New/Unexplained Change in Mental Status Sepsis Action Taken by Nursing 09/18/22 20:20 09/18/22 20:30 09/18/22 20:40 Temperature Temperature Source Pulse Rate 75 83 84 Pulse Rate from SpO2 Sensor 75 82 83 Respiratory Rate 17 24 23 Respiratory Effort / Characteristics Respiratory Depth Blood Pressure Blood Pressure Mean Pulse Oximetry 96 96 96 Oxygen Delivery Method Sepsis Recent Fever Within 48 Hours Sepsis New/Unexplained Change in Mental Status Sepsis Action Taken by Nursing 09/18/22 20:50 09/18/22 21:00 09/18/22 21:10 Temperature Temperature Source Pulse Rate 81 84 81 Pulse Rate from SpO2 Sensor 81 85 81 Respiratory Rate 19 23 21 Respiratory Effort / Characteristics Respiratory Depth Blood Pressure Blood Pressure Mean Pulse Oximetry 95 95 96 Oxygen Delivery Method Sepsis Recent Fever Within 48 Hours Sepsis New/Unexplained Change in Mental Status Sepsis Action Taken by Nursing 09/18/22 21:20 09/18/22 21:30 09/18/22 21:30 Temperature Temperature Source Pulse Rate 80 86 Pulse Rate from SpO2 Sensor 81 85 Respiratory Rate 21 18 Respiratory Effort / Characteristics Respiratory Depth Blood Pressure 128/75 Blood Pressure Mean 92 Pulse Oximetry 95 95 Oxygen Delivery Method Sepsis Recent Fever Within 48 Hours Sepsis New/Unexplained Change in Mental Status Sepsis Action Taken by Nursing 09/18/22 21:40 09/18/22 21:50 09/18/22 22:00 Temperature Temperature Source Pulse Rate 84 83 Pulse Rate from SpO2 Sensor 84 82 Respiratory Rate 21 21 Respiratory Effort / Characteristics Respiratory Depth Blood Pressure 149/93 H Blood Pressure Mean 126 Pulse Oximetry 94 94 Oxygen Delivery Method Sepsis Recent Fever Within 48 Hours Sepsis New/Unexplained Change in Mental Status Sepsis Action Taken by Nursing 09/18/22 22:00 Temperature Temperature Source Pulse Rate 86 Pulse Rate from SpO2 Sensor 87 Respiratory Rate 21 Respiratory Effort / Characteristics Respiratory Depth Blood Pressure Blood Pressure Mean Pulse Oximetry 94 Oxygen Delivery Method Sepsis Recent Fever Within 48 Hours Sepsis New/Unexplained Change in Mental Status Sepsis Action Taken by Residential Medications Current Medication List: was personally reviewed by me Laboratory Data Attestation: I reviewed the patient's lab results. 09/18/22 17:55 09/18/22 17:55 Lab Results 09/18/22 09/18/22 09/18/22 Range/Units 17:55 17:55 17:55 WBC 13.23 H (4.8-10.8) K/ul RBC 5.36 (4.70-6.10) M/uL Hgb 16.6 (14.0-18.0) g/dl Hct 47.5 (42.0-52.0) % MCV 88.6 (80.0-100.0) fL MCH 31.0 (25.0-34.0) pg MCHC 34.9 (32.0-36.0) g/dL RDW Std Deviation 47.9 H (36.4-46.3) fL RDW Coeff of Juliane 14.7 H (11.5-14.5) % Plt Count 297 (130-400) K/uL MPV 9.2 L (9.4-12.4) fL Immature Gran % (Auto) 0.3 % Neut % (Auto) 44.0 % Lymph % (Auto) 42.3 % Carroll % (Auto) 9.7 % Eos % (Auto) 2.9 % Baso % (Auto) 0.8 % Neut # (Auto) 5.82 (1.40-6.50) K/uL Lymph # (Auto) 5.60 H (1.2-3.4) K/uL Carroll # (Auto) 1.28 H (0.11-0.59) K/uL Eos # (Auto) 0.39 (0-0.50) K/uL Baso # (Auto) 0.10 (0-0.2) K/uL Immature Gran # (Auto) 0.04 (0.01-0.20) K/uL ESR (0-20) mm/hr PT 10.5 (9.0-12.0) Seconds INR 1.0 (0.9-1.1) APTT 33.0 H (21.0-31.0) Seconds PTT Ratio 1.2 Sodium 139 (136-145) mmol/L Potassium 3.7 (3.5-5.1) mmol/L Chloride 108 H (98-107) mmol/L Carbon Dioxide 25 (21-32) mmol/L Anion Gap 6 (3-11) BUN 8 (6-23) mg/dl Creatinine 0.82 (0.6-1.4) mg/dl Est Cr Clr Drug Dosing 96.2 ml/min Est GFR ( Amer) 113.8 ml/min Est GFR (Non-Af Amer) 98.2 ml/min BUN/Creatinine Ratio 9.8 L (10-20) Glucose 83 (70-99(Fasting)) mg/dl Calcium 9.3 (8.6-10.3) mg/dl Total Bilirubin 0.4 (0.2-1.0) mg/dl AST 21 (13-39) U/L ALT 25 (7-52) U/L Alkaline Phosphatase 89 (34-104) U/L Ammonia (18-72) umol/L Troponin I High Sens 6.0 (0-20) pg/ml C-Reactive Protein < 0.50 (0-0.5) mg/dl Total Protein 7.6 (6.0-8.3) gm/dl Albumin 4.5 (3.4-5.0) gm/dl Globulin 3.1 (2.5-4.0) gm/dl Albumin/Globulin Ratio 1.5 (0.9-2) Lipase 45 (11-82) U/L Procalcitonin (0-0.5) ng/ml Urine Color Urine Appearance (Clear) Urine pH (4.5-7.5) Ur Specific Leon (1.000-1.030) Urine Protein (Negative) Urine Glucose (UA) (Negative) Urine Ketones (Negative) Urine Blood (Negative) Urine Nitrite (Negative) Urine Bilirubin (Negative) Urine Urobilinogen (Negative) Ur Leukocyte Esterase (Negative) Fluid Comment CSF Appearance CSF Color Xanthrochromic CSF WBC (Auto) (0-5) /uL CSF WBC (0-5) CSF RBC (Auto) (0-) /uL CSF RBC (0-) CSF Cell Count Tube # CSF Chemistry Tube # CSF Glucose (40-70) mg/dl CSF Total Protein (15-45) mg/dl CSF C.neoform/gat PCR (NotDetected) CSF CMV DNA (PCR) (NotDetected) CSF Enterovirus (PCR) (NotDetected) CSF E. coli K1 (PCR) (NotDetected) CSF H. influenzae (PCR) (NotDetected) CSF HSV I (PCR) (NotDetected) CSF HSV II (PCR) (NotDetected) CSF HHV 6 (PCR) (NotDetected) CSF L.monocytogenes PCR (NotDetected) CSF N. meningitidis PCR (NotDetected) CSF Parechovirus (PCR) (NotDetected) CSF S. agalactiae (PCR) (NotDetected) CSF S. pneumoniae (PCR) (NotDetected) CSF VZV DNA (PCR) (NotDetected) Urine Opiates Screen (Neg) Ur Methadone, Qual (Neg) Urine Barbiturates (Neg) Ur Phencyclidine (PCP) (Neg) U Amphetamin/Meth Scrn (Neg) MDMA (Ecstasy) Screen (Neg) U Benzodiazepines Scrn (Neg) Ur Cocaine Metabolite (Neg) U Marijuana (THC) Screen (Neg) Ethyl Alcohol mg/dL (<10.0) mg/dl Anaplasma Smear See Comment Babesia Smear See Comment Lyme Disease IgG Ab (Negative) Lyme Disease IgM Ab (Negative) 09/18/22 09/18/22 09/18/22 Range/Units 17:55 17:55 18:39 WBC (4.8-10.8) K/ul RBC (4.70-6.10) M/uL Hgb (14.0-18.0) g/dl Hct (42.0-52.0) % MCV (80.0-100.0) fL MCH (25.0-34.0) pg MCHC (32.0-36.0) g/dL RDW Std Deviation (36.4-46.3) fL RDW Coeff of Juliane (11.5-14.5) % Plt Count (130-400) K/uL MPV (9.4-12.4) fL Immature Gran % (Auto) % Neut % (Auto) % Lymph % (Auto) % Carroll % (Auto) % Eos % (Auto) % Baso % (Auto) % Neut # (Auto) (1.40-6.50) K/uL Lymph # (Auto) (1.2-3.4) K/uL Carroll # (Auto) (0.11-0.59) K/uL Eos # (Auto) (0-0.50) K/uL Baso # (Auto) (0-0.2) K/uL Immature Gran # (Auto) (0.01-0.20) K/uL ESR 20 (0-20) mm/hr PT (9.0-12.0) Seconds INR (0.9-1.1) APTT (21.0-31.0) Seconds PTT Ratio Sodium (136-145) mmol/L Potassium (3.5-5.1) mmol/L Chloride (98-107) mmol/L Carbon Dioxide (21-32) mmol/L Anion Gap (3-11) BUN (6-23) mg/dl Creatinine (0.6-1.4) mg/dl Est Cr Clr Drug Dosing ml/min Est GFR ( Amer) ml/min Est GFR (Non-Af Amer) ml/min BUN/Creatinine Ratio (10-20) Glucose (70-99(Fasting)) mg/dl Calcium (8.6-10.3) mg/dl Total Bilirubin (0.2-1.0) mg/dl AST (13-39) U/L ALT (7-52) U/L Alkaline Phosphatase (34-104) U/L Ammonia (18-72) umol/L Troponin I High Sens (0-20) pg/ml C-Reactive Protein (0-0.5) mg/dl Total Protein (6.0-8.3) gm/dl Albumin (3.4-5.0) gm/dl Globulin (2.5-4.0) gm/dl Albumin/Globulin Ratio (0.9-2) Lipase (11-82) U/L Procalcitonin < 0.05 (0-0.5) ng/ml Urine Color Urine Appearance (Clear) Urine pH (4.5-7.5) Ur Specific Leon (1.000-1.030) Urine Protein (Negative) Urine Glucose (UA) (Negative) Urine Ketones (Negative) Urine Blood (Negative) Urine Nitrite (Negative) Urine Bilirubin (Negative) Urine Urobilinogen (Negative) Ur Leukocyte Esterase (Negative) Fluid Comment CSF Appearance CSF Color Xanthrochromic CSF WBC (Auto) (0-5) /uL CSF WBC (0-5) CSF RBC (Auto) (0-) /uL CSF RBC (0-) CSF Cell Count Tube # CSF Chemistry Tube # CSF Glucose (40-70) mg/dl CSF Total Protein (15-45) mg/dl CSF C.neoform/gat PCR (NotDetected) CSF CMV DNA (PCR) (NotDetected) CSF Enterovirus (PCR) (NotDetected) CSF E. coli K1 (PCR) (NotDetected) CSF H. influenzae (PCR) (NotDetected) CSF HSV I (PCR) (NotDetected) CSF HSV II (PCR) (NotDetected) CSF HHV 6 (PCR) (NotDetected) CSF L.monocytogenes PCR (NotDetected) CSF N. meningitidis PCR (NotDetected) CSF Parechovirus (PCR) (NotDetected) CSF S. agalactiae (PCR) (NotDetected) CSF S. pneumoniae (PCR) (NotDetected) CSF VZV DNA (PCR) (NotDetected) Urine Opiates Screen (Neg) Ur Methadone, Qual (Neg) Urine Barbiturates (Neg) Ur Phencyclidine (PCP) (Neg) U Amphetamin/Meth Scrn (Neg) MDMA (Ecstasy) Screen (Neg) U Benzodiazepines Scrn (Neg) Ur Cocaine Metabolite (Neg) U Marijuana (THC) Screen (Neg) Ethyl Alcohol mg/dL 121.4 H (<10.0) mg/dl Anaplasma Smear Babesia Smear Lyme Disease IgG Ab Negative (Negative) Lyme Disease IgM Ab Negative (Negative) 09/18/22 09/18/22 09/18/22 Range/Units 19:49 19:49 19:49 WBC (4.8-10.8) K/ul RBC (4.70-6.10) M/uL Hgb (14.0-18.0) g/dl Hct (42.0-52.0) % MCV (80.0-100.0) fL MCH (25.0-34.0) pg MCHC (32.0-36.0) g/dL RDW Std Deviation (36.4-46.3) fL RDW Coeff of Juliane (11.5-14.5) % Plt Count (130-400) K/uL MPV (9.4-12.4) fL Immature Gran % (Auto) % Neut % (Auto) % Lymph % (Auto) % Carroll % (Auto) % Eos % (Auto) % Baso % (Auto) % Neut # (Auto) (1.40-6.50) K/uL Lymph # (Auto) (1.2-3.4) K/uL Carroll # (Auto) (0.11-0.59) K/uL Eos # (Auto) (0-0.50) K/uL Baso # (Auto) (0-0.2) K/uL Immature Gran # (Auto) (0.01-0.20) K/uL ESR (0-20) mm/hr PT (9.0-12.0) Seconds INR (0.9-1.1) APTT (21.0-31.0) Seconds PTT Ratio Sodium (136-145) mmol/L Potassium (3.5-5.1) mmol/L Chloride (98-107) mmol/L Carbon Dioxide (21-32) mmol/L Anion Gap (3-11) BUN (6-23) mg/dl Creatinine (0.6-1.4) mg/dl Est Cr Clr Drug Dosing ml/min Est GFR ( Amer) ml/min Est GFR (Non-Af Amer) ml/min BUN/Creatinine Ratio (10-20) Glucose (70-99(Fasting)) mg/dl Calcium (8.6-10.3) mg/dl Total Bilirubin (0.2-1.0) mg/dl AST (13-39) U/L ALT (7-52) U/L Alkaline Phosphatase (34-104) U/L Ammonia (18-72) umol/L Troponin I High Sens (0-20) pg/ml C-Reactive Protein (0-0.5) mg/dl Total Protein (6.0-8.3) gm/dl Albumin (3.4-5.0) gm/dl Globulin (2.5-4.0) gm/dl Albumin/Globulin Ratio (0.9-2) Lipase (11-82) U/L Procalcitonin (0-0.5) ng/ml Urine Color Urine Appearance (Clear) Urine pH (4.5-7.5) Ur Specific Leon (1.000-1.030) Urine Protein (Negative) Urine Glucose (UA) (Negative) Urine Ketones (Negative) Urine Blood (Negative) Urine Nitrite (Negative) Urine Bilirubin (Negative) Urine Urobilinogen (Negative) Ur Leukocyte Esterase (Negative) Fluid Comment CSF Appearance Clear CSF Color Colorless Xanthrochromic No xanthochromia CSF WBC (Auto) 0 (0-5) /uL CSF WBC 0 (0-5) CSF RBC (Auto) 2 (0-) /uL CSF RBC 0 (0-) CSF Cell Count Tube # 3 CSF Chemistry Tube # 1 CSF Glucose 61 (40-70) mg/dl CSF Total Protein 56.9 H (15-45) mg/dl CSF C.neoform/gat PCR Not Detected (NotDetected) CSF CMV DNA (PCR) Not Detected (NotDetected) CSF Enterovirus (PCR) Not Detected (NotDetected) CSF E. coli K1 (PCR) Not Detected (NotDetected) CSF H. influenzae (PCR) Not Detected (NotDetected) CSF HSV I (PCR) Not Detected (NotDetected) CSF HSV II (PCR) Not Detected (NotDetected) CSF HHV 6 (PCR) Not Detected (NotDetected) CSF L.monocytogenes PCR Not Detected (NotDetected) CSF N. meningitidis PCR Not Detected (NotDetected) CSF Parechovirus (PCR) Not Detected (NotDetected) CSF S. agalactiae (PCR) Not Detected (NotDetected) CSF S. pneumoniae (PCR) Not Detected (NotDetected) CSF VZV DNA (PCR) Not Detected (NotDetected) Urine Opiates Screen (Neg) Ur Methadone, Qual (Neg) Urine Barbiturates (Neg) Ur Phencyclidine (PCP) (Neg) U Amphetamin/Meth Scrn (Neg) MDMA (Ecstasy) Screen (Neg) U Benzodiazepines Scrn (Neg) Ur Cocaine Metabolite (Neg) U Marijuana (THC) Screen (Neg) Ethyl Alcohol mg/dL (<10.0) mg/dl Anaplasma Smear Babesia Smear Lyme Disease IgG Ab (Negative) Lyme Disease IgM Ab (Negative) 09/18/22 09/18/22 09/18/22 Range/Units 19:51 19:51 20:18 WBC (4.8-10.8) K/ul RBC (4.70-6.10) M/uL Hgb (14.0-18.0) g/dl Hct (42.0-52.0) % MCV (80.0-100.0) fL MCH (25.0-34.0) pg MCHC (32.0-36.0) g/dL RDW Std Deviation (36.4-46.3) fL RDW Coeff of Juliane (11.5-14.5) % Plt Count (130-400) K/uL MPV (9.4-12.4) fL Immature Gran % (Auto) % Neut % (Auto) % Lymph % (Auto) % Carroll % (Auto) % Eos % (Auto) % Baso % (Auto) % Neut # (Auto) (1.40-6.50) K/uL Lymph # (Auto) (1.2-3.4) K/uL Carroll # (Auto) (0.11-0.59) K/uL Eos # (Auto) (0-0.50) K/uL Baso # (Auto) (0-0.2) K/uL Immature Gran # (Auto) (0.01-0.20) K/uL ESR (0-20) mm/hr PT (9.0-12.0) Seconds INR (0.9-1.1) APTT (21.0-31.0) Seconds PTT Ratio Sodium (136-145) mmol/L Potassium (3.5-5.1) mmol/L Chloride (98-107) mmol/L Carbon Dioxide (21-32) mmol/L Anion Gap (3-11) BUN (6-23) mg/dl Creatinine (0.6-1.4) mg/dl Est Cr Clr Drug Dosing ml/min Est GFR ( Amer) ml/min Est GFR (Non-Af Amer) ml/min BUN/Creatinine Ratio (10-20) Glucose (70-99(Fasting)) mg/dl Calcium (8.6-10.3) mg/dl Total Bilirubin (0.2-1.0) mg/dl AST (13-39) U/L ALT (7-52) U/L Alkaline Phosphatase (34-104) U/L Ammonia 32.0 (18-72) umol/L Troponin I High Sens (0-20) pg/ml C-Reactive Protein (0-0.5) mg/dl Total Protein (6.0-8.3) gm/dl Albumin (3.4-5.0) gm/dl Globulin (2.5-4.0) gm/dl Albumin/Globulin Ratio (0.9-2) Lipase (11-82) U/L Procalcitonin (0-0.5) ng/ml Urine Color Yellow Urine Appearance Clear (Clear) Urine pH 5.5 (4.5-7.5) Ur Specific [place] 1.004 (1.000-1.030) Urine Protein Negative (Negative) Urine Glucose (UA) Negative (Negative) Urine Ketones Negative (Negative) Urine Blood Negative (Negative) Urine Nitrite Negative (Negative) Urine Bilirubin Negative (Negative) Urine Urobilinogen Negative (Negative) Ur Leukocyte Esterase Negative (Negative) Fluid Comment CSF Appearance CSF Color Xanthrochromic CSF WBC (Auto) (0-5) /uL CSF WBC (0-5) CSF RBC (Auto) (0-) /uL CSF RBC (0-) CSF Cell Count Tube # CSF Chemistry Tube # CSF Glucose (40-70) mg/dl CSF Total Protein (15-45) mg/dl CSF C.neoform/gat PCR (NotDetected) CSF CMV DNA (PCR) (NotDetected) CSF Enterovirus (PCR) (NotDetected) CSF E. coli K1 (PCR) (NotDetected) CSF H. influenzae (PCR) (NotDetected) CSF HSV I (PCR) (NotDetected) CSF HSV II (PCR) (NotDetected) CSF HHV 6 (PCR) (NotDetected) CSF L.monocytogenes PCR (NotDetected) CSF N. meningitidis PCR (NotDetected) CSF Parechovirus (PCR) (NotDetected) CSF S. agalactiae (PCR) (NotDetected) CSF S. pneumoniae (PCR) (NotDetected) CSF VZV DNA (PCR) (NotDetected) Urine Opiates Screen Neg (Neg) Ur Methadone, Qual Neg (Neg) Urine Barbiturates Neg (Neg) Ur Phencyclidine (PCP) Neg (Neg) U Amphetamin/Meth Scrn Neg (Neg) MDMA (Ecstasy) Screen Neg (Neg) U Benzodiazepines Scrn Neg (Neg) Ur Cocaine Metabolite Neg (Neg) U Marijuana (THC) Screen Neg (Neg) Ethyl Alcohol mg/dL (<10.0) mg/dl Anaplasma Smear Babesia Smear Lyme Disease IgG Ab (Negative) Lyme Disease IgM Ab (Negative) Administered Medications Discontinued Medications Dexamethasone Sodium Phosphate (DexamethasonePf 10 Mg/Ml Vial) 10 mg IV NOW ONE Stop: 09/18/22 19:54 Last Admin: 09/18/22 20:17 Dose: 10 mg Documented By: ACC Thiamine HCl 200 mg/ Sodium (Chloride) 52 mls @ 210 mls/hr IV NOW STA Stop: 09/18/22 18:52 Last Infusion: 09/18/22 20:17 Dose: 0 mls/hr Documented By: Admin: 09/18/22 19:29 Dose: 210 mls/hr Documented By: ACC Sodium Chloride (Nss 1000ml) 1,000 mls @ 999 mls/hr IV .Q1H1M ONE Stop: 09/18/22 20:51 Last Admin: 09/18/22 20:18 Dose: 999 mls/hr Documented By: ACC Ceftriaxone Sodium (Rocephin) 2,000 mg in 70 mls @ 140 mls/hr IV NOW STA Stop: 09/18/22 20:22 Last Admin: 09/18/22 20:17 Dose: 140 mls/hr Documented By: ACC Lorazepam (Lorazepam 2 Mg/1 Ml Vial) 0.5 mg IV NOW STA Stop: 09/18/22 19:18 Last Admin: 09/18/22 19:38 Dose: 0.5 mg Documented By: [facility] Imaging Data Attestation: I personally reviewed and interpreted this imaging study as follows: My Impression: 1 view chest x-ray was obtained in the emergency department. My interpretation is no free air or definite infiltrate, final report below. CT of the brain was obtained in the emergency department. My interpretation is no intracranial hemorrhage or mass effect, final report below. Radiologist's Impression: Chest X-Ray 09/18/22 17:58 XR chest 1V portable HISTORY: Chest pain, nonspecific COMPARISON: Chest 12/30/2020. FINDINGS: The lungs are clear. Cardiac silhouette is normal in size. No pleural effusions. No pneumothorax. IMPRESSION: No acute process. ACT 112: Negative or not required by law. Electronically signed by: Raffaele Kasper M.D. 09/18/2022 6:[address] 09/18/22 17:[address] DOSE: 625.80 mGy.cm HISTORY: Altered mental status. TECHNIQUE: Multiaxial CT images of the head were performed without the use of intravenous contrast. Automated exposure control was utilized for this study. A dose lowering technique was utilized adhering to the principles of ALARA. Comparison: None. Findings: Mild mucosal thickening within the right sphenoid sinus and right frontal sinus. The mastoid air cells are clear. The calvarium and skull base are intact. The ventricles and sulci are within normal limits. There is no mass, hematoma, midline shift, or acute infarct. Mild periventricular white matter hypodensity is nonspecific but favors microvascular ischemic change given the patient's age. Impression: No acute intracranial abnormality. ACT 112: Negative or not required by law. Electronically signed by: Raffaele Kasper M.D. 09/18/2022 7:03 PM Discharge Plan Visit Data Chief Complaint: Hypertension Stated Complaint: HYPERTENSION, DIZZINESS, BLURRED VISION ED Provider: Rafael Lacey Discharge Problem: Acute alteration in mental status, Hypertension, Encephalopathy, Headache Patient Disposition: Being Evaluated by Hospitalist Discharge Instructions Interventions: ED Discharge Assessment Last Done: 09/18/22 22:04 Forms Stand Alone Forms: MyActivityPal Prescriptions Prescriptions: No Action atorvastatin 10 mg tablet 10 mg PO QAM Qty: 90 3RF Referrals Referrals: Mana Myers CRNP [Primary Care Provider] - Hypertension Qualifiers: Hypertension type: unspecified Qualified Code(s): I10 - Essential (primary) hypertension Headache Qualifiers: Headache type: unspecified Headache chronicity pattern: unspecified pattern Intractability: not intractable Qualified Code(s): R51.9 - Headache, unspecified
[2022-09-18 18:28] LABS: Alanine Aminotransferase 25 U/L (7-52); Albumin Globulin Ratio 1.5 (0.9-2); Albumin Level 4.5 gm/dl (3.4-5.0); Alkaline Phosphatase 89 U/L (34-104); Anion Gap 6 (3-11); Aspartate Aminotransferase 21 U/L (13-39); BUN Creatinine Ratio 9.8 (10-20); Bilirubin,Total 0.4 mg/dl (0.2-1.0); Blood Urea Nitrogen 8 mg/dl (6-23); Calcium 9.3 mg/dl (8.6-10.3); Carbon Dioxide 25 mmol/L (21-32); Chloride 108 mmol/L (98-107); Creatinine Clr Calc Pharmacy 96.2 ml/min; Est GFR (African American) 113.8 ml/min; Est GFR (Non-African American) 98.2 ml/min; Globulin 3.1 gm/dl (2.5-4.0); Glucose 83 mg/dl (70-99(Fasting)); Lipase 45 U/L (11-82); Potassium 3.7 mmol/L (3.5-5.1); Sodium 139 mmol/L (136-145); Total Protein 7.6 gm/dl (6.0-8.3)
[2022-09-18 18:32] LABS: Basophils % (auto) 0.8 %; Eosinophils # (auto) 0.39 K/uL (0-0.50); Eosinophils % (auto) 2.9 %; Immature Granulocytes # (auto) 0.04 K/uL (0.01-0.20); Immature Granulocytes % (auto) 0.3 %; Lymphocytes % (auto) 42.3 %; Monocytes # (auto) 1.28 K/uL (0.11-0.59); Monocytes % (auto) 9.7 %; Neutrophils # (auto) 5.82 K/uL (1.40-6.50)
[2022-09-18 18:38] LABS: Partial Thromboplastin Ratio 1.2; Prothrombin Time 10.5 Seconds (9.0-12.0)
[2022-09-18] MEDS ORDERED: THIAMINE HCL 200 MG in SODIUM CHLORIDE 0.9% 50 ML IV STA (18:38)
--- NOTE | 2022-09-18 18:57 | XRay Report ---
XR chest 1V portable HISTORY: Chest pain, nonspecific COMPARISON: Chest 12/30/2020. FINDINGS: The lungs are clear. Cardiac silhouette is normal in size. No pleural effusions. No pneumot horax. IMPRESSION: No acute process. ACT 112: Negative or not required by law. Electronically signed by: Raffaele Kasper M.D. 09/18/2022 6:54 PM
--- NOTE | 2022-09-18 19:05 | CT Scan Report ---
HEAD CT NONCONTRAST CT DOSE: 625.80 mGy.cm HISTORY: Altered mental status. TECHNIQUE: Multiaxial CT images of the head were performed without the use of intravenous contrast. A utomated exposure control was utilized for this study. A dose lowering technique was utilized adheri ng to the principles of ALARA. Comparison: None. Findings: Mild mucosal thickening within the right sphenoid sinus and right frontal sinus. The mastoi d air cells are clear. The calvarium and skull base are intact. The ventricles and sulci are within n ormal limits. There is no mass, hematoma, midline shift, or acute infarct. Mild periventricular white matter hypodensity is nonspecific but favors microvascular ischemic change given the patient's age. Impression: No acute intracranial abnormality. ACT 112: Negative or not required by law. Electronically signed by: Raffaele Kasper M.D. 09/18/2022 7:03 PM
[2022-09-18] MEDS ORDERED: LORazepam 2 MG/1 ML VIAL IV STA (19:17)
[2022-09-18 19:47] LABS: C Reactive Protein < 0.50 mg/dl (0-0.5)
[2022-09-18] MEDS ORDERED: SODIUM CHLORIDE 0.9% 1000ML 1,000 ML IV ONE (19:51)
[2022-09-18] MEDS ORDERED: dexAMETHasone**PF** 10 MG/ML VIAL IV ONE (19:53)
[2022-09-18] MEDS ORDERED: cefTRIAXone SODIUM 2,000 MG/70 ML BAG IV STA (19:53)
[2022-09-18 20:07] LABS: Procalcitonin < 0.05 ng/ml (0-0.5)
[2022-09-18 20:12] LABS: Lyme Ab IgG w/WB Rflx Negative (Negative); Lyme Ab IgM w/WB Rflx Negative (Negative)
[2022-09-18 20:18] LABS: Appearance CSF Clear; CSF Count Tube # 3; CSF Xanthrochromic No xanthochromia; Color CSF Colorless; Red Blood Cell CSF Auto 2 /uL (0-)
[2022-09-18 20:19] LABS: White Blood Cell CSF Auto 0 /uL (0-5)
[2022-09-18 20:38] LABS: Total Protein CSF 56.9 mg/dl (15-45)
[2022-09-18 20:45] LABS: Appearance Urine Clear (Clear); Bilirubin Urine Negative (Negative); Blood Urine Negative (Negative); Color Urine Yellow; Glucose Urine UA Negative (Negative); Ketones Urine Negative (Negative); Leukocyte Esterase Urine Negative (Negative); Nitrite Urine Negative (Negative); Protein Urine Negative (Negative); Specific Gravity Urine 1.004 (1.000-1.030); Urobilinogen Urine Negative (Negative); pH Urine 5.5 (4.5-7.5)
[2022-09-18 21:16] LABS: Amphetamines+Metham, Urine Neg (Neg); Barbiturates, Urine Neg (Neg); Benzodiazepine, Urine Neg (Neg); Cocaine, Urine Neg (Neg); MDMA (Ecstacy), Urine Neg (Neg); Methadone, Urine Neg (Neg); Opiate, Urine Neg (Neg); Phencyclidine, Urine Neg (Neg)
--- NOTE | 2022-09-18 21:20 | History & Physical Report ---
Date of Service September 18, 2022 Assessment & Plan (1) Acute alteration in mental status: Plan: 57 yo male with PMHx perforated diverticulitis s/p colostomy reversal, bilateral femoral stenosis, and HLD presents with confusion. #Altered Mental Status -presented with 1 day confusion, fatigue, lightheadedness, and blurry vision. No history of this constellation of symptoms prior. Denies viral prodrome. Unclear etiology. Did meet SIRS criteria on arrival (HR, leukocytosis). Blood cx pending. UA unremarkable. CXR without acute disease. Procal neg. ESR wnl. Alcohol level 121, however, this amount would be atypical for current symptoms. Lyme neg. Anaplasmosis/babesia smear neg. Peripheral smear pending. He does have environmental exposure to pipes/lead and drinks well water. Consider environmental causes. Lead POC pending. -Lumbar puncture performed. CSF studies pending, thus far without WBCs. -Brain MRI w/o contrast: concerning for demyelinating disease, which may be of infectious or inflammatory etiologies; MS panel, myelin basic protein pending. -Brain/cervical MRI w/ contrast pending -received empiric Rocephin and 10mg dexamethasone in the ED. Defer continuation to day team once diagnosis is made. -neurology consulted #Abdominal pain -reports waxing/waning mild abdominal pain for the past 2 weeks. He does have a h/o perforated diverticulitis requiring colostomy reversal and sigmoidectomy. -CT A/P: without acute process -monitor pain for now, possibly 2/2 to acute process above #Reactive airway disease -pt with wheezing in upper airways. Asthma on problem list but patient denies h/o of this. Not on inhalers at home. -duonebs prn #Infrarenal abdominal aortic aneurysm, ?chronic -seen on CT A/P measuring 3.6 cm. Not seen on previous CT in 2020, however, this problem was mentioned on his problem list. Monitor. #HLD #H/o bilateral femoral stenosis -CTA head/neck: 40% stenosis of the proximal right ICA, otherwise unremarkable -cont. statin #Tobacco abuse -smokes ~1 pack per day -consider nicotine patch DVT ppx: lovenox FEN/GI: regular Code Status: full Dispo: PCU (2) Hypertension: (3) Encephalopathy: (4) Headache: (5) Abdominal pain: (6) History of colostomy reversal: (7) Tobacco abuse: History of Present Illness Chief Complaint: [facility] Primary Care Provider: NICKY Anne 57 yo male with PMHx perforated diverticulitis s/p colostomy reversal, bilateral femoral stenosis, and HLD presents with confusion and elevated BP. Around 1pm earlier today, patient had sudden onset fatigue, lightheadedness, frontal headache, confusion, and blurred vision. He does not some tingling in all extremity digits. He also endorses some waxing/waning abd pain over the past 2 weeks not related to eating, pain 3/10 at worst. He is with history of perforated diverticulitis 2 years ago with subsequent colostomy reversal. Denies chest pain, sob, N/V/D, constipation, extremity weakness, dysuria, neck stiffness. He feels a little better than earlier but symptoms ongoing. No longer with vision changes. He does drink alcohol daily and did have a couple beers earlier today. He smokes 1 pack of cigarettes a day. Denies recreational drug use. For work, he is working on the [employer] so does have environmental exposures with pipes. He also drinks out of well water. Denies tick bites. Allergies Allergy/AdvReac Type Severity Reaction Status Date / Time No Known Allergies Allergy Verified 09/12/22 14:31 Home Medications Medication Instructions Recorded Confirmed Type atorvastatin 10 mg tablet 10 mg PO QAM #90 tabs 09/12/22 09/18/22 Rx Past Med/Surg History Medical History Aneurysm of infrarenal abdominal aorta Recent dx- started on ASA/statin by PCP Asthma No inhaler/recent issues Encounter for pre-operative examination Groin pain Hyperlipidemia Lymphangitis No known health problems Pancreatic lesion PCP monitoring, plan for MRI Psoriasis Right lower quadrant abdominal pain Sigmoid diverticulitis Hx Surgical History History of colonoscopy Colonoscopy (03/25/21): MAC at [facility] History of colostomy reversal (05/05/21) Laparoscopic-Assisted Colostomy Reversal, Laproscopic mobilization of spe lenic flexure, Extensive lysis of adhesions - Aleksandr Rooney DO, FACS 05/05/2021 S/P laparoscopic-assisted sigmoidectomy (12/23/20) Diagnostic Laparoscopy, Open Sigmoidectomy, End Colostomy with Jessi's Pouch (12/23/20): Grade view 1, Glidescope#4, ETT 7.5 at [facility] Family History Mother Diabetes Father Stroke Denies family history of Ovarian cancer Prostate cancer Myocardial infarction Breast cancer Colorectal cancer Social History Smoking Status: Current every day smoker Tobacco Type: Cigarettes Age Started Using Tobacco: 16; Cigarettes Per Day: 30; Second Hand Exposure: Yes; Do You Dip or Chew Tobacco: No; Hx Alcohol Use: Yes Alcohol type: beer Hx Substance Use: No Preferred Language: Iranian Communication Ability: Effective Visual Impairment: No Limitations Porcelain Finish Sprayer Required: No Beliefs That Will Affect Care: None marital status: Current Living Situation: Significant Other Current Living Situation Comment: LIVES WITH [facility] current occupational status: 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 AOx3. Vitals as above. HEENT: No scleral injection or discharge.Dry mucous membranes. Neck: Supple without lymphadenopathy or thyromegaly. Trachea midline. Lungs: +wheezes in upper airways. No rales/rhonchi. Cardiac: Regular rate and rhythm.No murmurs.No extremity edema. 2+ distal peripheral pulses. Abdomen: Bowel sounds present. Soft and nondistended.Tender over upper quadrants. No guarding or rebound tenderness. No hepatosplenomegaly. MSK: No cyanosis or clubbing. Extremities motor strength 5/5. Skin: No abnormal rashes, warm, dry. Neurologic: no focal deficits. PERRL. Results & Data Results & Data Vital Signs (Past 12 Hours) Vital Signs Temp Pulse Resp BP Pulse Ox O2 Del Method 09/18/22 21:00 84 23 95 09/18/22 20:50 81 19 95 09/18/22 20:40 84 23 96 09/18/22 20:30 83 24 96 09/18/22 20:20 75 17 96 09/18/22 20:10 80 20 98 09/18/22 20:00 81 20 97 09/18/22 20:00 136/88 09/18/22 19:50 82 22 99 09/18/22 19:40 78 16 97 09/18/22 19:30 86 25 H 09/18/22 19:30 172/126 H 09/18/22 19:20 88 23 96 09/18/22 19:10 80 19 95 09/18/22 19:07 155/91 H 09/18/22 19:07 89 16 09/18/22 19:00 82 20 155/91 H 96 Room Air 09/18/22 18:40 79 17 09/18/22 18:36 77 13 09/18/22 18:20 77 18 96 09/18/22 18:15 157/105 H 09/18/22 18:15 78 17 96 09/18/22 18:10 79 19 96 09/18/22 18:00 79 20 96 09/18/22 18:00 168/107 H 09/18/22 17:56 95 H 22 95 09/18/22 17:58 98 Room Air 09/18/22 17:57 90 09/18/22 17:40 36.4 C L 89 18 194/108 H 97 Room Air Laboratory Results Laboratory Results WBC 13.23 K/ul (4.8-10.8) H 09/18/22 17:55 RBC 5.36 M/uL (4.70-6.10) 09/18/22 17:55 Hgb 16.6 g/dl (14.0-18.0) 09/18/22 17:55 Hct 47.5 % (42.0-52.0) 09/18/22 17:55 MCV 88.6 fL (80.0-100.0) 09/18/22 17:55 MCH 31.0 pg (25.0-34.0) 09/18/22 17:55 MCHC 34.9 g/dL (32.0-36.0) 09/18/22 17:55 RDW Std Deviation 47.9 fL (36.4-46.3) H 09/18/22 17:55 RDW Coeff of Juliane 14.7 % (11.5-14.5) H 09/18/22 17:55 Plt Count 297 K/uL (130-400) 09/18/22 17: MPV 9.2 fL (9.4-12.4) L 09/18/22 17:55 Immature Gran % (Auto) 0.3 % 09/18/22 17:55 Neut % (Auto) 44.0 % 09/18/22 17:55 Lymph % (Auto) 42.3 % 09/18/22 17:55 [place] % (Auto) 9.7 % 09/18/22 17:55 Eos % (Auto) 2.9 % 09/18/22 17:55 Baso % (Auto) 0.8 % 09/18/22 17: Neut # (Auto) 5.82 K/uL (1.40-6.50) 09/18/22 17:55 Lymph # (Auto) 5.60 K/uL (1.2-3.4) H 09/18/22 17:55 [place] # (Auto) 1.28 K/uL (0.11-0.59) H 09/18/22 17:55 Eos # (Auto) 0.39 K/uL (0-0.50) 09/18/22 17:55 Baso # (Auto) 0.10 K/uL (0-0.2) 09/18/22 17: Immature Gran # (Auto) 0.04 K/uL (0.01-0.20) 09/18/22 17:55 ESR 20 mm/hr (0-20) 09/18/22 17:55 PT 10.5 Seconds (9.0-12.0) 09/18/22 17:55 INR 1.0 (0.9-1.1) 09/18/22 17:55 APTT 33.0 Seconds (21.0-31.0) H 09/18/22 17:55 PTT Ratio 1.2 09/18/22 17: Sodium 139 mmol/L (136-145) 09/18/22 17:55 Potassium 3.7 mmol/L (3.5-5.1) 09/18/22 17:55 Chloride 108 mmol/L (98-107) H 09/18/22 17:55 Carbon Dioxide 25 mmol/L (21-32) 09/18/22 17:55 Anion Gap 6 (3-11) 09/18/22 17:55 BUN 8 mg/dl (6-23) 09/18/22 17:55 Creatinine 0.82 mg/dl (0.6-1.4) 09/18/22 17:55 Est Cr Clr Drug Dosing 96.2 ml/min 09/18/22 17:55 Est GFR ( Amer) 113.8 ml/min 09/18/22 17:55 Est GFR (Non-Af Amer) 98.2 ml/min 09/18/22 17:55 BUN/Creatinine Ratio 9.8 (10-20) L 09/18/22 17:55 Glucose 83 mg/dl (70-99(Fasting)) 09/18/22 17:55 Calcium 9.3 mg/dl (8.6-10.3) 09/18/22 17:55 Total Bilirubin 0.4 mg/dl (0.2-1.0) 09/18/22 17:55 AST 21 U/L (13-39) 09/18/22 17:55 ALT 25 U/L (7-52) 09/18/22 17:55 Alkaline Phosphatase 89 U/L (34-104) 09/18/22 17:55 Ammonia 32.0 umol/L (18-72) 09/18/22 20:18 Troponin I High Sens 6.0 pg/ml (0-20) 09/18/22 17:55 C-Reactive Protein < 0.50 mg/dl (0-0.5) 09/18/22 17:55 Total Protein 7.6 gm/dl (6.0-8.3) 09/18/22 17:55 Albumin 4.5 gm/dl (3.4-5.0) 09/18/22 17:55 Globulin 3.1 gm/dl (2.5-4.0) 09/18/22 17:55 Albumin/Globulin Ratio 1.5 (0.9-2) 09/18/22 17:55 Lipase 45 U/L (11-82) 09/18/22 17:55 Procalcitonin < 0.05 ng/ml (0-0.5) 09/18/22 17:55 Urine Color Yellow 09/18/22 19:51 Urine Appearance Clear (Clear) 09/18/22 19:51 Urine pH 5.5 (4.5-7.5) 09/18/22 19:51 Ur Specific [place] 1.004 (1.000-1.030) 09/18/22 19:51 Urine Protein Negative (Negative) 09/18/22 19:51 Urine Glucose (UA) Negative (Negative) 09/18/22 19:51 Urine Ketones Negative (Negative) 09/18/22 19:51 Urine Blood Negative (Negative) 09/18/22 19:51 Urine Nitrite Negative (Negative) 09/18/22 19:51 Urine Bilirubin Negative (Negative) 09/18/22 19:51 Urine Urobilinogen Negative (Negative) 09/18/22 19:51 Ur Leukocyte Esterase Negative (Negative) 09/18/22 19:51 Fluid Comment 09/18/22 19:49 CSF Appearance Clear 09/18/22 19:49 CSF Color Colorless 09/18/22 19:49 Xanthrochromic No xanthochromia 09/18/22 19:49 CSF WBC (Auto) 0 /uL (0-5) 09/18/22 19:49 CSF WBC 0 (0-5) 09/18/22 19:49 CSF RBC (Auto) 2 /uL (0-) 09/18/22 19:49 CSF RBC 0 (0-) 09/18/22 19:49 CSF Cell Count Tube # 3 09/18/22 19:49 CSF Chemistry Tube # 1 09/18/22 19:49 CSF Glucose 61 mg/dl (40-70) 09/18/22 19:49 CSF Total Protein 56.9 mg/dl (15-45) H 09/18/22 19:49 Urine Opiates Screen Neg (Neg) 09/18/22 19:51 Ur Methadone, Qual Neg (Neg) 09/18/22 19:51 Urine Barbiturates Neg (Neg) 09/18/22 19:51 Ur Phencyclidine (PCP) Neg (Neg) 09/18/22 19:51 U Amphetamin/Meth Scrn Neg (Neg) 09/18/22 19:51 MDMA (Ecstasy) Screen Neg (Neg) 09/18/22 19:51 U Benzodiazepines Scrn Neg (Neg) 09/18/22 19:51 Ur Cocaine Metabolite Neg (Neg) 09/18/22 19:51 U Marijuana (THC) Screen Neg (Neg) 09/18/22 19:51 Ethyl Alcohol mg/dL 121.4 mg/dl (<10.0) H 09/18/22 18:39 Anaplasma Smear See Comment 09/18/22 17:55 Babesia Smear See Comment 09/18/22 17:55 Lyme Disease IgG Ab Negative (Negative) 09/18/22 17:55 Lyme Disease IgM Ab Negative (Negative) 09/18/22 17:55 Impressions Chest X-Ray 09/18/22 17:58 XR chest 1V portable HISTORY: Chest pain, nonspecific COMPARISON: Chest 12/30/2020. FINDINGS: The lungs are clear. Cardiac silhouette is normal in size. No pleural effusions. No pneumothorax. IMPRESSION: No acute process. ACT 112: Negative or not required by law. Electronically signed by: Raffaele Kasper M.D. 09/18/2022 6:[address] 09/18/22 17:[address] DOSE: 625.80 mGy.cm HISTORY: Altered mental status. TECHNIQUE: Multiaxial CT images of the head were performed without the use of intravenous contrast. Automated exposure control was utilized for this study. A dose lowering technique was utilized adhering to the principles of ALARA. Comparison: None. Findings: Mild mucosal thickening within the right sphenoid sinus and right frontal sinus. The mastoid air cells are clear. The calvarium and skull base are intact. The ventricles and sulci are within normal limits. There is no mass, hematoma, midline shift, or acute infarct. Mild periventricular white matter hypodensity is nonspecific but favors microvascular ischemic change given the patient's age. Impression: No acute intracranial abnormality. ACT 112: Negative or not required by law. Electronically signed by: Raffaele Kasper M.D. 09/18/2022 7:03 PM Resident Activity Tracking Resident Involvement: Resident Care Provided Care Provided: Adult Hospital Medicine (2) Hypertension Hypertension type: unspecified Qualified Code(s): I10 - Essential (primary) hypertension (4) Headache Headache chronicity pattern: unspecified pattern Headache type: unspecified Intractability: not intractable Qualified Code(s): R51.9 - Headache, unspecified
[2022-09-18] MEDS ORDERED: ALBUT/IPRATROP 3MG/0.5MG NEB 3 ML VIAL NEB STA (21:23)
[2022-09-18 21:51] LABS: Cryptococcus neoformans/ga PCR Not Detected (NotDetected); Cytomegalovirus PCR Not Detected (NotDetected); Enterovirus PCR Not Detected (NotDetected); Escherichia coli K1 PCR Not Detected (NotDetected); Haemophilius influenzae PCR Not Detected (NotDetected); Herpes Simplex Virus 1 PCR Not Detected (NotDetected); Herpes Simplex Virus 2 PCR Not Detected (NotDetected); Human Herpes Virus 6 PCR Not Detected (NotDetected); Human Parechovirus PCR Not Detected (NotDetected); Listeria monocytogenes PCR Not Detected (NotDetected); Neisseria meningitidis PCR Not Detected (NotDetected); Streptococcus agalactiae PCR Not Detected (NotDetected); Streptococcus pneumoniae PCR Not Detected (NotDetected); Varicella Zoster Virus PCR Not Detected (NotDetected)
[2022-09-18] MEDS ORDERED: IOVERSOL 350 MG 125mL Prefilled Syringe IV ONE (22:20)
[2022-09-18] MEDS ORDERED: ACETAMINOPHEN 1,000 MG/100 ML VIAL IV PRN (23:40)
[2022-09-18] MEDS ORDERED: ONDANSETRON INJ 2 MG/ML 2 ML VIAL IV PRN (23:40)
[2022-09-18] MEDS ORDERED: ALBUT/IPRATROP 3MG/0.5MG NEB 3 ML VIAL NEB PRN (23:40)
--- NOTE | 2022-09-18 23:54 | CT Scan Report ---
Exam(s): CTA NECK With Contrast IV Amt: OPTIRAY 350 115ML EXAM: CT Angiography Neck With Intravenous Contrast CLINICAL HISTORY: Reason for exam: r/o vascular disease. TECHNIQUE: Routine carotid CT angiography protocol was performed with intravenous contrast. NASCET criteria using the distal ICAs for comparison were used for evaluation of stenoses. CTDI is 13.35 mGy and DLP is 1725.78 mGy-cm. Automated exposure control was utilized for the study. A dose lowering technique was utilized adhering to the principles of ALARA. MIP reconstructed images were created and reviewed. CONTRAST: Patient received OPTIRAY 350 115ML of IV contrast COMPARISON: None. FINDINGS: VASCULATURE: Right common carotid artery: Unremarkable. No occlusion or significant stenosis. No dissection. Right internal carotid artery: There is a 40% stenosis of the proximal right ICA. No dissection. Right external carotid artery: Unremarkable. No occlusion. Right vertebral artery: Unremarkable. No occlusion or significant stenosis. No dissection. Left common carotid artery: Unremarkable. No occlusion or significant stenosis. No dissection. Left internal carotid artery: Unremarkable. Extracranial segment is patent with no occlusion or significant stenosis. No dissection. Left external carotid artery: Unremarkable. No occlusion. Left vertebral artery: Unremarkable. No occlusion or significant stenosis. No dissection. NECK: Bones/joints: Unremarkable. Soft tissues: Prominent mediastinal lymph nodes. Prominent cervical lymph nodes. Lung apices: Clear. CAROTID STENOSIS REFERENCE USING NASCET CRITERIA: % ICA stenosis = (1 - narrowest ICA diameter/diameter of distal cervical ICA) x 100. Mild - <50% stenosis. Moderate - 50-69% stenosis. Severe - 70-94% stenosis. Near occlusion - 95-99% stenosis. Occluded - 100% stenosis. IMPRESSION: Negative CTA neck. Electronically signed by: Ashwini Lindo MD 09/18/22 23:53 PM
--- NOTE | 2022-09-18 23:56 | CT Scan Report ---
Exam(s): CTA HEAD With Contrast IV Amt: OPTIRAY 350 115ML EXAM: CT Angiography Head With Intravenous Contrast CLINICAL HISTORY: Reason for exam: r/o vascular disease. TECHNIQUE: Axial computed tomographic angiography images of the head with intravenous contrast. CTDI is 16.61 mGy and DLP is 1725.78 mGy-cm. Automated exposure control was utilized for the study. A dose lowering technique was utilized adhering to the principles of ALARA. MIP reconstructed images were created and reviewed. CONTRAST: Patient received OPTIRAY 350 115ML of IV contrast COMPARISON: No relevant prior studies available. FINDINGS: The dural venous sinuses are patent. Right internal carotid artery: No acute findings. Intracranial segment is patent with no significant stenosis. No aneurysm. Right anterior cerebral artery: Unremarkable. No occlusion or significant stenosis. No aneurysm. Right middle cerebral artery: Unremarkable. No occlusion or significant stenosis. No aneurysm. Right posterior cerebral artery: Unremarkable. No occlusion or significant stenosis. No aneurysm. Right vertebral artery: Unremarkable as visualized. Left internal carotid artery: No acute findings. Intracranial segment is patent with no significant stenosis. No aneurysm. Left anterior cerebral artery: Unremarkable. No occlusion or significant stenosis. No aneurysm. Left middle cerebral artery: Unremarkable. No occlusion or significant stenosis. No aneurysm. Left posterior cerebral artery: Unremarkable. No occlusion or significant stenosis. No aneurysm. Left vertebral artery: Unremarkable as visualized. Basilar artery: Unremarkable. No occlusion or significant stenosis. No aneurysm. IMPRESSION: Negative CT angiogram of the head. Electronically signed by: Ashwini Lindo MD 09/18/22 23:55 PM
--- NOTE | 2022-09-19 00:15 | CT Scan Report ---
Exam(s): CT ABDOMEN + PELVIS With Contrast IV Amt: OPTIRAY 350 115ML EXAM: CT Abdomen and Pelvis With Intravenous Contrast CLINICAL HISTORY: Reason for exam: abdominal pain. TECHNIQUE: Axial computed tomography images of the abdomen and pelvis with intravenous contrast. CTDI is 25.33 mGy and DLP is 1725.78 mGy-cm. Automated exposure control was utilized for the study. A dose lowering technique was utilized adhering to the principles of ALARA. CONTRAST: Patient received OPTIRAY 350 115ML of IV contrast COMPARISON: None. FINDINGS: Lung bases: Mild bilateral lower lobe atelectasis, otherwise clear lung bases. Heart: Unremarkable. No significant pericardial effusion. Normal cardiac size. ABDOMEN: Liver: Unremarkable. No mass. Gallbladder and bile ducts: Unremarkable. No calcified stones. No ductal dilation. Pancreas: Unremarkable. No mass. No ductal dilation. Spleen: Unremarkable. No splenomegaly. Adrenals: Unremarkable. No mass. Kidneys and ureters: Unremarkable. No solid mass. No hydronephrosis. Stomach and bowel: Postoperative changes with sutures along the sigmoid. Mild diverticulosis with no signs of diverticulitis. No obstruction. PELVIS: Appendix: Normal appendix. No findings to suggest acute appendicitis. Bladder: Unremarkable. No mass. Reproductive: Mild prostate enlargement. ABDOMEN and PELVIS: Intraperitoneal space: Unremarkable. No free air. No significant fluid collection. Bones/joints: Mild degenerative disease of the spine. No acute fracture. No dislocation. Soft tissues: Unremarkable. Vasculature: Infrarenal abdominal aortic aneurysm measuring 3.6 x 3.3 cm. Atherosclerotic disease throughout the aorta. Lymph nodes: Unremarkable. No enlarged lymph nodes. IMPRESSION: 1. Infrarenal abdominal aortic aneurysm measuring up to 3.6 cm. 2. No acute process within the abdomen and pelvis. Electronically signed by: Mckayla Rossi MD 09/19/22 00:14 AM
--- NOTE | 2022-09-19 01:26 | Magnetic Resonance Report ---
Exam(s): MRI HEAD Without Contrast EXAM: MR Head Without Intravenous Contrast CLINICAL HISTORY: Reason for exam: confusion. TECHNIQUE: Magnetic resonance images of the head/brain without intravenous contrast in multiple planes. COMPARISON: No relevant prior studies available. FINDINGS: Brain: There are multiple T2/flair hyperintense foci in the pericallosal and callosal white matter, some which demonstrated no signs of finger morphology. The flow voids at the base of the brain are intact. No mass. No hemorrhage. No acute infarct. There is a small left choroidal fissure cyst. Ventricles: Unremarkable. No ventriculomegaly. Bones/joints: Unremarkable. Sinuses: Chronic ethmoid, right frontal and sphenoid sinusitis. No acute sinusitis. Mastoid air cells: Unremarkable as visualized. No mastoid effusion. Orbits: Unremarkable as visualized. IMPRESSION: Findings concerning for demyelinating disease, which may be of infectious or inflammatory etiologies. Recommend post-contrasted images to evaluate for acute demyelinating disease. Electronically signed by: Ashwini Lindo MD 09/19/22 01:24 AM
[2022-09-19] MEDS ORDERED: GADOBUTROL 65ML VIAL IV ONE (03:17)
[2022-09-19 06:11] LABS: Basophils # (auto) 0.04 K/uL (0-0.2); Basophils % (auto) 0.4 %; Eosinophils # (auto) 0.02 K/uL (0-0.50); Eosinophils % (auto) 0.2 %; Hematocrit (blood only) 45.6 % (42.0-52.0); Hemoglobin 15.6 g/dl (14.0-18.0); Immature Granulocytes # (auto) 0.03 K/uL (0.01-0.20); Immature Granulocytes % (auto) 0.3 %; Lymphocytes # (auto) 1.32 K/uL (1.2-3.4); Lymphocytes % (auto) 13.7 %; Mean Corpuscular Hemoglobin 30.3 pg (25.0-34.0); Mean Corpuscular Hgb Conc 34.2 g/dL (32.0-36.0); Mean Corpuscular Volume 88.5 fL (80.0-100.0); Mean Platelet Volume 9.3 fL (9.4-12.4); Monocytes # (auto) 0.14 K/uL (0.11-0.59); Monocytes % (auto) 1.4 %; Neutrophils # (auto) 8.12 K/uL (1.40-6.50); Platelet Count 289 K/uL (130-400); RDW Coefficient of Variation 14.6 % (11.5-14.5); RDW Standard Deviation 47.6 fL (36.4-46.3); Red Blood Count 5.15 M/uL (4.70-6.10); White Blood Count 9.67 K/ul (4.8-10.8)
--- NOTE | 2022-09-19 06:25 | Magnetic Resonance Report ---
Exam(s): MRI HEAD W/WO Contrast IV Amt: 8ml gadavist EXAM: MR Head Without and With Intravenous Contrast CLINICAL HISTORY: Reason for exam: demyelinating disease. TECHNIQUE: Magnetic resonance images of the head/brain without and with intravenous contrast in multiple planes. CONTRAST: Patient received 8ml Gadavist of IV contrast COMPARISON: No relevant prior studies available. FINDINGS: Brain: There are numerous T2/flair hyperintense foci in the callosal, pericallosal, septal callosal, periventricular and subcortical white matter, some of which demonstrate a Brandt's finger morphology. There are is no evidence of enhancing white matter lesions. There are no lesions in the posterior fossa or brachium pontis. The visualized cervical cord is unremarkable. No mass. No hemorrhage. No acute infarct. The dural venous sinuses are intact. There is a small left choroid fissure cyst. Ventricles: Unremarkable. No ventriculomegaly. Bones/joints: Unremarkable. Sinuses: Chronic left maxillary, sphenoid, ethmoid and frontal sinusitis. No acute sinusitis. Mastoid air cells: Unremarkable as visualized. No mastoid effusion. Orbits: Unremarkable as visualized. IMPRESSION: Findings concerning for demyelinating diseases, most likely multiple sclerosis. There is no evidence of abnormal enhancement to suggest active demyelination. Recommend MRI of the cervical and thoracic cord to evaluate for extent of disease burden. Electronically signed by: Ashwini Lindo MD 09/19/22 06:24 AM
[2022-09-19 06:26] LABS: Alanine Aminotransferase 22 U/L (7-52); Albumin Globulin Ratio 1.3 (0.9-2); Albumin Level 3.9 gm/dl (3.4-5.0); Alkaline Phosphatase 75 U/L (34-104); Anion Gap 5 (3-11); Aspartate Aminotransferase 17 U/L (13-39); BUN Creatinine Ratio 12.3 (10-20); Bilirubin,Total 0.4 mg/dl (0.2-1.0); Blood Urea Nitrogen 9 mg/dl (6-23); C Reactive Protein < 0.50 mg/dl (0-0.5); Carbon Dioxide 21 mmol/L (21-32); Chloride 110 mmol/L (98-107); Est GFR (African American) 119.3 ml/min; Globulin 2.9 gm/dl (2.5-4.0); Glucose 149 mg/dl (70-99(Fasting)); Potassium 4.1 mmol/L (3.5-5.1); Sodium 136 mmol/L (136-145); Total Protein 6.8 gm/dl (6.0-8.3)
--- NOTE | 2022-09-19 06:34 | Magnetic Resonance Report ---
Exam(s): MRI C SPINE IV Amt: 8ml gadavist EXAM: MR Cervical Spine With Intravenous Contrast CLINICAL HISTORY: Reason for exam: demyelinating disease. TECHNIQUE: Magnetic resonance images of the cervical spine with intravenous contrast in multiple planes. CONTRAST: Patient received 8ml Gadavist of IV contrast COMPARISON: No relevant prior studies available. FINDINGS: Vertebrae: There are 7 cervical type vertebral bodies with a normal cervical lordosis. There is normal vertebral body height and alignment. The bone marrow signal is normal. No acute fracture. Spinal cord: The cord is normal size, shape and signal characteristics. The craniocervical junction is normal without evidence of cure malformation. No abnormal enhancement. Soft tissues: The cervical flow voids are intact. DISCS/SPINAL CANAL/NEURAL FORAMINA: C2-C3: Unremarkable. No significant disc disease. No stenosis. C3-C4: Unremarkable. No significant disc disease. No stenosis. C4-C5: Unremarkable. No significant disc disease. No stenosis. C5-C6: Unremarkable. No significant disc disease. No stenosis. C6-C7: Unremarkable. No significant disc disease. No stenosis. C7-T1: Unremarkable. No significant disc disease. No stenosis. IMPRESSION: No evidence of acute cervical spine pathology. No evidence of demyelinating disease. Electronically signed by: Ashwini Lindo MD 09/19/22 06:33 AM
[2022-09-19 06:51] LABS: Folate (Folic Acid),Ser orPlas 11.41 ng/ml (>5.38)
--- NOTE | 2022-09-19 07:04 | Hospitalist Progress Note ---
"Date of Service September 19, 2022 Assessment & Plan (1) Acute alteration in mental status: Plan: 57 yo male with PMHx perforated diverticulitis s/p colostomy reversal, bilateral femoral stenosis, and HLD presents with confusion. Altered Mental Status -presented with 1 day confusion, fatigue, lightheadedness, and blurry vision. No history of this constellation of symptoms prior. Denies viral prodrome. Unclear etiology. Did meet SIRS criteria on arrival (HR, leukocytosis). Blood cx pending. UA unremarkable. CXR without acute disease. Procal neg. ESR wnl. Alcohol level 121, however, this amount would be atypical for current symptoms. Lyme neg. Anaplasmosis/babesia smear neg. Peripheral smear pending. He does have environmental exposure to pipes/lead and drinks well water. Consider environmental causes. Lead POC pending. -Lumbar puncture performed. CSF studies pending, thus far without WBCs. -Oligoclonal bands pending -Brain MRI w/o contrast: concerning for demyelinating disease, which may be of infectious or inflammatory etiologies; MS panel, myelin basic protein pending. -Brain MRI w/ contrast -- Concerning for demyelinating disease, Bradnt's fingers seen on read. Possible MS -Cervical MRI -- no evidence of demyelinating disease -received empiric Rocephin and 10mg dexamethasone in the ED. Defer continuation to day team once diagnosis is made. -neurology consulted: Presumptive MS. No indication for continuation of steroids given no active lesions visualized on MRI. -Outpatient f/u with neurology for initiation of disease modifying agents Abdominal pain -reports waxing/waning mild abdominal pain for the past 2 weeks. He does have a h/o perforated diverticulitis requiring colostomy reversal and sigmoidectomy. -CT A/P: without acute process -monitor pain for now, possibly 2/2 to acute process above Reactive airway disease -pt with wheezing in upper airways. Asthma on problem list but patient denies h/o of this. Not on inhalers at home. -duonebs prn Infrarenal abdominal aortic aneurysm, ?chronic -seen on CT A/P measuring 3.6 cm. Not seen on previous CT in 2020, however, this problem was mentioned on his problem list. Per patient, he does not remember much about this diagnosis, but mentions that his PCP placed him on a baby aspirin at his last visit. -Continue ASA 81mg? -Monitor. HLD | H/o bilateral femoral stenosis -CTA head/neck: 40% stenosis of the proximal right ICA, otherwise unremarkable -cont. statin Tobacco abuse -smokes ~1 pack per day -consider nicotine patch DVT ppx: lovenox FEN/GI: regular Code Status: full Dispo: PCU (2) Hypertension: (3) Encephalopathy: (4) Headache: (5) Abdominal pain: (6) History of colostomy reversal: (7) Tobacco abuse: Admission and Anticipated Discharge Date Admission Date: September 18, 2022 Subjective Patient is sitting up in bed in no acute distress, eating breakfast. His only current complaint is of his headache, which he describes as central frontal and occipital. He still has blurry vision, but thinks it may be improved from admission. Physical Exam Physical Exam: Constitutional: no acute distress. AOx3. HEENT: No scleral injection or discharge. Moist mucous membranes. Neck: Supple without lymphadenopathy or thyromegaly. Trachea midline. Lungs: Mild tightness in the bases. Clear in the upper and middle lobes. No rales/rhonchi. Cardiac: Regular rate and rhythm. No murmurs. No extremity edema. 2+ distal peripheral pulses. Abdomen: Bowel sounds present. Soft, nontender and nondistended. No guarding. No hepatosplenomegaly. MSK: No cyanosis or clubbing. Moves all extremities equally. Skin: No obvious rashes, warm, dry. Results & Data Results & Data Vital Signs (Past 12 Hours) Vital Signs Temp Pulse Pulse Pulse Resp BP BP 09/19/22 03:41 36.7 C 84 18 160/94 H 09/18/22 22:36 83 09/18/22 23:28 86 21 149/83 H 09/18/22 21:40 85 09/18/22 22:00 86 21 09/18/22 22:00 149/93 H 09/18/22 21:50 83 21 09/18/22 21:40 84 21 09/18/22 21:30 86 18 09/18/22 21:30 128/75 09/18/22 21:20 80 21 09/18/22 21:10 81 21 09/18/22 21:00 84 23 09/18/22 20:50 81 19 09/18/22 20:40 84 23 09/18/22 20:30 83 24 09/18/22 20:20 75 17 09/18/22 20:10 80 20 09/18/22 20:00 81 20 09/18/22 20:00 136/88 09/18/22 19:50 82 22 09/18/22 19:40 78 16 09/18/22 19:30 86 25 H 09/18/22 19:30 172/126 H 09/18/22 19:20 88 23 09/18/22 19:10 80 19 09/18/22 19:07 155/91 H 09/18/22 19:07 89 16 Pulse Ox O2 Del Method 09/19/22 03:41 94 Room Air 09/18/22 22:36 09/18/22 23:28 94 Room Air 09/18/22 21:40 09/18/22 22:00 94 09/18/22 22:00 09/18/22 21:50 94 09/18/22 21:40 94 09/18/22 21:30 95 09/18/22 21:30 09/18/22 21:20 95 09/18/22 21:10 96 09/18/22 21:00 95 09/18/22 20:50 95 09/18/22 20:40 96 09/18/22 20:30 96 09/18/22 20:20 96 09/18/22 20:10 98 09/18/22 20:00 97 09/18/22 20:00 09/18/22 19:50 99 09/18/22 19:40 97 09/18/22 19:30 09/18/22 19:30 09/18/22 19:20 96 09/18/22 19:10 95 09/18/22 19:07 09/18/22 19:07 Resident Activity Tracking Resident Involvement: Resident Care Provided Care Provided: Adult Hospital Medicine (2) Hypertension Hypertension type: unspecified Qualified Code(s): I10 - Essential (primary) hypertension (4) Headache Headache chronicity pattern: unspecified pattern Headache type: unspecified Intractability: not intractable Qualified Code(s): R51.9 - Headache, unspecified"
[2022-09-19] MEDS ORDERED: ENOXAPARIN INJ 40 MG/0.4 ML SYR SQ SCH (09:00)
[2022-09-19] MEDS ORDERED: ATORVASTATIN 10 MG TAB PO SCH (09:00)
[2022-09-19] MEDS ORDERED: ACETAMINOPHEN 325 MG TAB PO PRN (09:15)
--- NOTE | 2022-09-19 16:58 | Neurology Consultation ---
Date of Consultation September 19, 2022 Assessment & Plan (1) Demyelinating disease: Headache, altered mental status and blurry vision in the setting of alcohol intoxication and HTN. Migraine is less likely. The finding on the MRI appears monophasic, there are no active lesions and while the pattern is typical for MS there is no correlating clinical attack. Therefore this is most like radiologic isolated syndrome. He does not meet the criteria for MS and would not continue or give any further steroids. LP is also consistent with a chronic process as there is no evidence of inflammation. Will await OCBs but suspect serial MRI's will be needed to determine if there is active disease present. -- Outpatient neurology follow-up in 4-6 weeks -- OCBs pending -- No further neurologic workup, please contact us with any further questions. Telehealth Consultation Telehealth Information Telehealth Information: I performed this visit using a real-time telehealth connection between my location and the patients location ([facility]). After connecting through interactive tele-video, patient was identified by name and date of and/or wristband check.Patient (or authorized healthcare claim service representative) was informed that this was a telemedicine visit and it was being conducted confidentially over secure lines. My office door was closed and no one else was present in the room with me.Patient (or authorized healthcare claim service representative) provided consent to proceed with the visit, expressed an understanding of privacy and security of the telemedicine visit, and gave permission to have a hospital claim service representative in the room in order to assist with the visit and to conduct portions of the visit, as needed. I informed the patient (or authorized healthcare claim service representative) that I reviewed their record and presented the opportunity for them to ask any questions regarding the visit today. The patient agreed to participate. History of Present Illness Reason for Consultation: Demyelinating disease Requesting Physician: Dr. Metcalf Attending Physician: Dangelo Metcalf MD History of Present Illness Davon Romero is 57 yo M presenting with a severe headache and blurry vision yesterday in the setting of alcohol consumption and high blood pressure. The patient continues to complain of head pressure. He denies any focal weakness, numbness, speech changes or vision loss. He has never had neurologic symptoms in the past. Also no history of headache or migraine. No history of autoimmune disease. Allergies Allergy/AdvReac Type Severity Reaction Status Date / Time No Known Allergies Allergy Verified 09/12/22 14:31 Home Medications Medication Instructions Recorded Confirmed Type atorvastatin 10 mg tablet 10 mg PO QAM #90 tabs 09/12/22 09/18/22 Rx Patient History Medical History Aneurysm of infrarenal abdominal aorta Recent dx- started on ASA/statin by PCP Asthma No inhaler/recent issues Encounter for pre-operative examination Groin pain Hyperlipidemia Lymphangitis No known health problems Pancreatic lesion PCP monitoring, plan for MRI Psoriasis Right lower quadrant abdominal pain Sigmoid diverticulitis Hx Surgical History History of colonoscopy Colonoscopy (03/25/21): MAC at [facility] History of colostomy reversal (05/05/21) Laparoscopic-Assisted Colostomy Reversal, Laproscopic mobilization of spelenic flexure, Extensive lysis of adhesions - Aleksandr Rooney DO, FACS 05/05/2021 S/P laparoscopic-assisted sigmoidectomy (12/23/20) Diagnostic Laparoscopy, Open Sigmoidectomy, End Colostomy with Jessi's Pouch (12/23/20): Grade view 1, Glidescope#4, ETT 7.5 at [facility] Family History Mother Diabetes Father Stroke Denies family history of Ovarian cancer Prostate cancer Myocardial infarction Breast cancer Colorectal cancer Social History Smoking Status: Current every day smoker Tobacco Type: Cigarettes Age Started Using Tobacco: 16; Cigarettes Per Day: 30; Second Hand Exposure: Yes; Do You Dip or Chew Tobacco: No; Hx Alcohol Use: Yes Alcohol type: beer Hx Substance Use: No Preferred Language: Guyanese Communication Ability: Effective Visual Impairment: No Limitations Nuclear Physicist Required: No Beliefs That Will Affect Care: None marital status: Current Living Situation: Significant Other Current Living Situation Comment: LIVES WITH [facility] current occupational status: employed 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 Antigravity strength in the upper extremities. Results & Data Vital Signs (Past 12 Hours) Vital Signs Temp Pulse Pulse Resp BP Pulse Ox O2 Del Method 09/19/22 15:44 37.0 C 88 20 152/79 H 97 Room Air 09/19/22 10:54 37.0 C 86 18 156/85 H 95 Room Air 09/19/22 11:04 78 09/19/22 07:38 36.9 C 83 18 159/88 H 94 Room Air Laboratory Results Abnormal lab results 09/18/22 09/18/22 09/18/22 Range/Units 17:55 17:55 17:55 WBC 13.23 H (4.8-10.8) K/ul RDW Std Deviation 47.9 H (36.4-46.3) fL RDW Coeff of Juliane 14.7 H (11.5-14.5) % MPV 9.2 L (9.4-12.4) fL Neut # (Auto) (1.40-6.50) K/uL Lymph # (Auto) 5.60 H (1.2-3.4) K/uL [place] # (Auto) 1.28 H (0.11-0.59) K/uL APTT 33.0 H (21.0-31.0) Seconds Chloride 108 H (98-107) mmol/L BUN/Creatinine Ratio 9.8 L (10-20) Glucose (70-99(Fasting)) mg/dl CSF Total Protein (15-45) mg/dl Ethyl Alcohol mg/dL (<10.0) mg/dl 09/18/22 09/18/22 09/19/22 Range/Units 18:39 19:49 05:24 WBC (4.8-10.8) K/ul RDW Std Deviation 47.6 H (36.4-46.3) fL RDW Coeff of Juliane 14.6 H (11.5-14.5) % MPV 9.3 L (9.4-12.4) fL Neut # (Auto) 8.12 H (1.40-6.50) K/uL Lymph # (Auto) (1.2-3.4) K/uL [place] # (Auto) (0.11-0.59) K/uL APTT (21.0-31.0) Seconds Chloride (98-107) mmol/L BUN/Creatinine Ratio (10-20) Glucose (70-99(Fasting)) mg/dl CSF Total Protein 56.9 H (15-45) mg/dl Ethyl Alcohol mg/dL 121.4 H (<10.0) mg/dl 09/19/22 Range/Units 05:24 WBC (4.8-10.8) K/ul RDW Std Deviation (36.4-46.3) fL RDW Coeff of Juliane (11.5-14.5) % MPV (9.4-12.4) fL Neut # (Auto) (1.40-6.50) K/uL Lymph # (Auto) (1.2-3.4) K/uL [place] # (Auto) (0.11-0.59) K/uL APTT (21.0-31.0) Seconds Chloride 110 H (98-107) mmol/L BUN/Creatinine Ratio (10-20) Glucose 149 H (70-99(Fasting)) mg/dl CSF Total Protein (15-45) mg/dl Ethyl Alcohol mg/dL (<10.0) mg/dl Diagnostic Findings Chest X-Ray 09/18/22 17:58 XR chest 1V portable HISTORY: Chest pain, nonspecific COMPARISON: Chest 12/30/2020. FINDINGS: The lungs are clear. Cardiac silhouette is normal in size. No pleural effusions. No pneumothorax. IMPRESSION: No acute process. ACT 112: Negative or not required by law. Electronically signed by: Raffaele Kasper M.D. 09/18/2022 6:[address] 09/18/22 17:[address] DOSE: 625.80 mGy.cm HISTORY: Altered mental status. TECHNIQUE: Multiaxial CT images of the head were performed without the use of intravenous contrast. Automated exposure control was utilized for this study. A dose lowering technique was utilized adhering to the principles of ALARA. Comparison: None. Findings: Mild mucosal thickening within the right sphenoid sinus and right frontal sinus. The mastoid air cells are clear. The calvarium and skull base are intact. The ventricles and sulci are within normal limits. There is no mass, hematoma, midline shift, or acute infarct. Mild periventricular white matter hypodensity is nonspecific but favors microvascular ischemic change given the patient's age. Impression: No acute intracranial abnormality. ACT 112: Negative or not required by law. Electronically signed by: Raffaele Kasper M.D. 09/18/2022 7:03 PM Abdomen/Pelvis CT 09/18/22 21:02 Exam(s): CT ABDOMEN + PELVIS With Contrast IV Amt: OPTIRAY 350 115ML EXAM: CT Abdomen and Pelvis With Intravenous Contrast CLINICAL HISTORY: Reason for exam: abdominal pain. TECHNIQUE: Axial computed tomography images of the abdomen and pelvis with intravenous contrast. CTDI is 25.33 mGy and DLP is 1725.78 mGy-cm. Automated exposure control was utilized for the study. A dose lowering technique was utilized adhering to the principles of ALARA. CONTRAST: Patient received OPTIRAY 350 115ML of IV contrast COMPARISON: None. FINDINGS: Lung bases: Mild bilateral lower lobe atelectasis, otherwise clear lung bases. Heart: Unremarkable. No significant pericardial effusion. Normal cardiac size. ABDOMEN: Liver: Unremarkable. No mass. Gallbladder and bile ducts: Unremarkable. No calcified stones. No ductal dilation. Pancreas: Unremarkable. No mass. No ductal dilation. Spleen: Unremarkable. No splenomegaly. Adrenals: Unremarkable. No mass. Kidneys and ureters: Unremarkable. No solid mass. No hydronephrosis. Stomach and bowel: Postoperative changes with sutures along the sigmoid. Mild diverticulosis with no signs of diverticulitis. No obstruction. PELVIS: Appendix: Normal appendix. No findings to suggest acute appendicitis. Bladder: Unremarkable. No mass. Reproductive: Mild prostate enlargement. ABDOMEN and PELVIS: Intraperitoneal space: Unremarkable. No free air. No significant fluid collection. Bones/joints: Mild degenerative disease of the spine. No acute fracture. No dislocation. Soft tissues: Unremarkable. Vasculature: Infrarenal abdominal aortic aneurysm measuring 3.6 x 3.3 cm. Atherosclerotic disease throughout the aorta. Lymph nodes: Unremarkable. No enlarged lymph nodes. IMPRESSION: 1. Infrarenal abdominal aortic aneurysm measuring up to 3.6 cm. 2. No acute process within the abdomen and pelvis. Electronically signed by: Mckayla Rossi MD 09/19/22 00:14 AM Head CTA 09/18/22 21:02 Exam(s): CTA HEAD With Contrast IV Amt: OPTIRAY 350 115ML EXAM: CT Angiography Head With Intravenous Contrast CLINICAL HISTORY: Reason for exam: r/o vascular disease. TECHNIQUE: Axial computed tomographic angiography images of the head with intravenous contrast. CTDI is 16.61 mGy and DLP is 1725.78 mGy-cm. Automated exposure control was utilized for the study. A dose lowering technique was utilized adhering to the principles of ALARA. MIP reconstructed images were created and reviewed. CONTRAST: Patient received OPTIRAY 350 115ML of IV contrast COMPARISON: No relevant prior studies available. FINDINGS: The dural venous sinuses are patent. Right internal carotid artery: No acute findings. Intracranial segment is patent with no significant stenosis. No aneurysm. Right anterior cerebral artery: Unremarkable. No occlusion or significant stenosis. No aneurysm. Right middle cerebral artery: Unremarkable. No occlusion or significant stenosis. No aneurysm. Right posterior cerebral artery: Unremarkable. No occlusion or significant stenosis. No aneurysm. Right vertebral artery: Unremarkable as visualized. Left internal carotid artery: No acute findings. Intracranial segment is patent with no significant stenosis. No aneurysm. Left anterior cerebral artery: Unremarkable. No occlusion or significant stenosis. No aneurysm. Left middle cerebral artery: Unremarkable. No occlusion or significant stenosis. No aneurysm. Left posterior cerebral artery: Unremarkable. No occlusion or significant stenosis. No aneurysm. Left vertebral artery: Unremarkable as visualized. Basilar artery: Unremarkable. No occlusion or significant stenosis. No aneurysm. IMPRESSION: Negative CT angiogram of the head. Electronically signed by: Ashwini Lindo MD 09/18/22 23:55 PM Neck CTA 09/18/22 21:02 Exam(s): CTA NECK With Contrast IV Amt: OPTIRAY 350 115ML EXAM: CT Angiography Neck With Intravenous Contrast CLINICAL HISTORY: Reason for exam: r/o vascular disease. TECHNIQUE: Routine carotid CT angiography protocol was performed with intravenous contrast. NASCET criteria using the distal ICAs for comparison were used for evaluation of stenoses. CTDI is 13.35 mGy and DLP is 1725.78 mGy-cm. Automated exposure control was utilized for the study. A dose lowering technique was utilized adhering to the principles of ALARA. MIP reconstructed images were created and reviewed. CONTRAST: Patient received OPTIRAY 350 115ML of IV contrast COMPARISON: None. FINDINGS: VASCULATURE: Right common carotid artery: Unremarkable. No occlusion or significant stenosis. No dissection. Right internal carotid artery: There is a 40% stenosis of the proximal right ICA. No dissection. Right external carotid artery: Unremarkable. No occlusion. Right vertebral artery: Unremarkable. No occlusion or significant stenosis. No dissection. Left common carotid artery: Unremarkable. No occlusion or significant stenosis. No dissection. Left internal carotid artery: Unremarkable. Extracranial segment is patent with no occlusion or significant stenosis. No dissection. Left external carotid artery: Unremarkable. No occlusion. Left vertebral artery: Unremarkable. No occlusion or significant stenosis. No dissection. NECK: Bones/joints: Unremarkable. Soft tissues: Prominent mediastinal lymph nodes. Prominent cervical lymph nodes. Lung apices: Clear. CAROTID STENOSIS REFERENCE USING NASCET CRITERIA: % ICA stenosis = (1 - narrowest ICA diameter/diameter of distal cervical ICA) x 100. Mild - <50% stenosis. Moderate - 50-69% stenosis. Severe - 70-94% stenosis. Near occlusion - 95-99% stenosis. Occluded - 100% stenosis. IMPRESSION: Negative CTA neck. Electronically signed by: Ashwini Lindo MD 09/18/22 23:53 PM Brain MRI 09/19/22 00:00 Exam(s): MRI HEAD Without Contrast EXAM: MR Head Without Intravenous Contrast CLINICAL HISTORY: Reason for exam: confusion. TECHNIQUE: Magnetic resonance images of the head/brain without intravenous contrast in multiple planes. COMPARISON: No relevant prior studies available. FINDINGS: Brain: There are multiple T2/flair hyperintense foci in the pericallosal and callosal white matter, some which demonstrated no signs of finger morphology. The flow voids at the base of the brain are intact. No mass. No hemorrhage. No acute infarct. There is a small left choroidal fissure cyst. Ventricles: Unremarkable. No ventriculomegaly. Bones/joints: Unremarkable. Sinuses: Chronic ethmoid, right frontal and sphenoid sinusitis. No acute sinusitis. Mastoid air cells: Unremarkable as visualized. No mastoid effusion. Orbits: Unremarkable as visualized. IMPRESSION: Findings concerning for demyelinating disease, which may be of infectious or inflammatory etiologies. Recommend post-contrasted images to evaluate for acute demyelinating disease. Electronically signed by: Ashwini Lindo MD 09/19/22 01:24 AM Brain MRI 09/19/22 02:06 Exam(s): MRI HEAD W/WO Contrast IV Amt: 8ml gadavist EXAM: MR Head Without and With Intravenous Contrast CLINICAL HISTORY: Reason for exam: demyelinating disease. TECHNIQUE: Magnetic resonance images of the head/brain without and with intravenous contrast in multiple planes. CONTRAST: Patient received 8ml Gadavist of IV contrast COMPARISON: No relevant prior studies available. FINDINGS: Brain: There are numerous T2/flair hyperintense foci in the callosal, pericallosal, septal callosal, periventricular and subcortical white matter, some of which demonstrate a Brandt's finger morphology. There are is no evidence of enhancing white matter lesions. There are no lesions in the posterior fossa or brachium pontis. The visualized cervical cord is unremarkable. No mass. No hemorrhage. No acute infarct. The dural venous sinuses are intact. There is a small left choroid fissure cyst. Ventricles: Unremarkable. No ventriculomegaly. Bones/joints: Unremarkable. Sinuses: Chronic left maxillary, sphenoid, ethmoid and frontal sinusitis. No acute sinusitis. Mastoid air cells: Unremarkable as visualized. No mastoid effusion. Orbits: Unremarkable as visualized. IMPRESSION: Findings concerning for demyelinating diseases, most likely multiple sclerosis. There is no evidence of abnormal enhancement to suggest active demyelination. Recommend MRI of the cervical and thoracic cord to evaluate for extent of disease burden. Electronically signed by: Ashwini Lindo MD 09/19/22 06:24 AM Cervical Spine MRI 09/19/22 02:06 Exam(s): MRI C SPINE IV Amt: 8ml gadavist EXAM: MR Cervical Spine With Intravenous Contrast CLINICAL HISTORY: Reason for exam: demyelinating disease. TECHNIQUE: Magnetic resonance images of the cervical spine with intravenous contrast in multiple planes. CONTRAST: Patient received 8ml Gadavist of IV contrast COMPARISON: No relevant prior studies available. FINDINGS: Vertebrae: There are 7 cervical type vertebral bodies with a normal cervical lordosis. There is normal vertebral body height and alignment. The bone marrow signal is normal. No acute fracture. Spinal cord: The cord is normal size, shape and signal characteristics. The craniocervical junction is normal without evidence of cure malformation. No abnormal enhancement. Soft tissues: The cervical flow voids are intact. DISCS/SPINAL CANAL/NEURAL FORAMINA: C2-C3: Unremarkable. No significant disc disease. No stenosis. C3-C4: Unremarkable. No significant disc disease. No stenosis. C4-C5: Unremarkable. No significant disc disease. No stenosis. C5-C6: Unremarkable. No significant disc disease. No stenosis. C6-C7: Unremarkable. No significant disc disease. No stenosis. C7-T1: Unremarkable. No significant disc disease. No stenosis. IMPRESSION: No evidence of acute cervical spine pathology. No evidence of demyelinating disease. Electronically signed by: Ashwini Lindo MD 09/19/22 06:33 AM
--- NOTE | 2022-09-19 17:24 | Discharge Summary ---
Date of Service September 19, 2022 Admission HPI Per Admitting Provider 57 yo male with PMHx perforated diverticulitis s/p colostomy reversal, bilateral femoral stenosis, and HLD presents with confusion and elevated BP. Around 1pm earlier today, patient had sudden onset fatigue, lightheadedness, frontal headache, confusion, and blurred vision. He does not some tingling in all extremity digits. He also endorses some waxing/waning abd pain over the past 2 weeks not related to eating, pain 3/10 at worst. He is with history of perforated diverticulitis 2 years ago with subsequent colostomy reversal. Denies chest pain, sob, N/V/D, constipation, extremity weakness, dysuria, neck stiffness. He feels a little better than earlier but symptoms ongoing. No longer with vision changes. He does drink alcohol daily and did have a couple beers earlier today. He smokes 1 pack of cigarettes a day. Denies recreational drug use. 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 He also drinks out of well water. Denies tick bites. Discharge Data Consultations 09/18/22 19:33 ED Decision to Admit Stat 09/19/22 06:00 Consult Neurology Routine Hospital Course (1) Acute alteration in mental status: (2) Demyelinating disease: Plan 57 yo male with PMHx perforated diverticulitis s/p colostomy reversal, bilateral femoral stenosis, and HLD presented yesterday with confusion, fatigue, lightheadedness, and blurry vision. Altered Mental Status: infection vs metabolic vs demyelinating disease -presented with 1 day confusion, fatigue, lightheadedness, and blurry vision beginning abruptly around lunchtime. No history of this constellation of symptoms prior. Denies viral prodrome. Unclear etiology. Broad differential on admission. Blood alcohol elevated at 121 but unlikely to correlate with all of his symptoms. Infectious causes mostly ruled out via negative UA, CXR, and CSF studies. Blood cultures pending, but low clinical concern for infection. Initial smear for tick-borne illnesses negative, PCR pending. Stroke work up also negative. Metabolic labs unremarkable. Lead level pending. Demyelinating disease/radiologic isolated syndrome : Brain MRI w/o contrast was performed, this was concerning for demyelinating disease. May be of infectious or inflammatory etiologies, but pattern on imaging is most typical of MS. Lumbar puncture so far normal aside from slightly elevated protein (56.9). CSF viral and bacterial PCRs all negative. MS panel, myelin basic protein pending. Cervical MRI was performed which showed no evidence of demyelinating disease in the cervical spinal cord. Patient received empiric Rocephin and 10mg dexamethasone in the ED. Neurology was consulted: per neurology, finding appears monophasic, no active lesions and while pattern is typical for MS patient does not meet the criteria. LP also consistent with chronic rather than acute inflammatory process. Do not recommend continuing steroids at this time. -OCBs pending -Patient may need serial MRIs -Outpatient neurology follow-up in 4-6 weeks Discharge Exam Constitutional: no acute distress. AOx3. HEENT: No scleral injection or discharge. Moist mucous membranes. Neck: Supple without lymphadenopathy or thyromegaly. Trachea midline. Lungs: Mild tightness in the bases. Clear in the upper and middle lobes. No rales/rhonchi. Cardiac: Regular rate and rhythm. No murmurs. No extremity edema. 2+ distal peripheral pulses. Abdomen: Bowel sounds present. Soft, nontender and nondistended. No guarding. No hepatosplenomegaly. MSK: No cyanosis or clubbing. Moves all extremities equally. Skin: No obvious rashes, warm, dry. Supervising Physician Co-Signing Physician Notes Attending attestation Pt seen and examined in concert with Dr. Don, [facility] Dr[facility] Miles. In agreement with the documented findings as noted in the resident documentation with any exceptions or additions as noted here. Resting in bed with improved but persistent bilateral frontal headache without reported accompanying neurologic symptoms, congestion. On examination, S1/S2 nl RRR no MCG. CTAB. Abd NT/ND BS+ve. CNII -XII grossly intact. Bilateral frontal headache w/ imaging concerning for demyelinating disease - neurology consult - improved but not resolved s/p dexamethasone in ED. Per neurology consult, would recommend outpatient neurology for ongoing evaluation as noted and follow up pending studies. Else see resident documentation as noted. Total attending physician time spent iwth this patient's care on the day of dis charge: 35 minutes.
--- NOTE | 2022-09-19 19:28 | Electrocardiogram Report ---
Test Reason : Blood Pressure : / mmHG Vent. Rate : 084 BPM Atrial Rate : 084 BPM P-R Int : 166 ms QRS Dur : 090 ms QT Int : 362 ms P-R-T Axes : 041 020 027 degrees QTc Int : 427 ms Normal sinus rhythm Normal ECG When compared with ECG of 23-DEC-2020 10:11, No significant change was found Confirmed by Stan Cuadra ([id number]) on 09/19/2022 7:27:32 PM Referred By: REFERRED SELF Confirmed By:Tacho Cuadra
--- NOTE | 2022-09-19 19:46 | XCELERA ---
[id number]
--- NOTE | 2022-09-20 09:58 | Pharmacy Report ---
ED Pharmacist Culture FollowUP - Culture Follow Up Note Date of Service: September 20, 2022 Notes:: * Patient's preliminary CSF culture is growing rare gram negative bacilli. Notified discharging physician, Dr. Don, who will notify the patient and ask that he return to the ED for evaluation.
[2022-09-21 06:16] LABS: Babesia microti DNA Not Detected (Not Detected)
== END 2022-09-19 18:32 | disposition home or self-care (01) | DRG 948 ==
LOC: ED 17:39 → 4W 21:08 → SUATTDRO 21:08 → 4W 22:04